=== PATIENT | female | born 1945 | race Caucasian/White ===

== ENCOUNTER → 2016-09-02 | Outpatient (CLI) | payer OTHER, MEDICARE ==
[~2016-09-02] MED LIST: ASCA500 PO; CALC500C70 PO; CHOL100010 PO; MULT-506 PO; MULTCAP36 PO; THY/30 PEG; THYR90TA PO
[2016-09-02 14:50] LABS: URINE APPEARANCE CLEAR (CLEAR); URINE BILIRUBIN NEG (NEG); URINE COLOR YELLOW; URINE NITRITE NEG (NEG); URINE PH 6.5 (4.5-7.5); URINE SPECIFIC GRAVITY 1.001 (1.000-1.030); UROBILINOGEN NEG (NEG)
[2016-09-02 14:53] LABS: MANUAL MICROSCOPIC REQUIRED? NO; REVIEW REQ? YES
[2016-09-02 15:08] LABS: URINE EPITHELIAL CELL AUTO 0-5 /lpf (0-5)
== END | disposition home or self-care (01) ==
LOC: C.LAB 13:41
PROVIDERS: ATTEND Internal Medicine
DX: R30.0 Dysuria (principal); R35.0 Frequency of micturition; R39.15 Urgency of urination

== ENCOUNTER → 2016-10-25 | Outpatient (CLI) | payer OTHER, MEDICARE ==
[~2016-10-25] MED LIST changes: +ASCO10003 PO; +CHOL2000 PO; +FERR143T5 PO; +MULTCAP33 PO; +MULTCHW PO
== END | disposition home or self-care (01) ==
LOC: C.LAB 13:25
PROVIDERS: ATTEND Internal Medicine Endocrinology, Diabetes & Metabolism
DX: E03.9 Hypothyroidism, unspecified (principal)

== ENCOUNTER → 2016-10-28 | Outpatient (CLI) | payer OTHER, MEDICARE ==
[2016-10-28 14:48] LABS: BLOOD UREA NITROGEN 18 mg/dl (7-18); BUN/CREATININE RATIO 19.4 (10-20); CARBON DIOXIDE 29 mmol/L (21-32); CHLORIDE 106 mmol/L (98-107); CREATININE 0.95 mg/dl (0.60-1.20); GLUCOSE 112 mg/dl (70-99); POTASSIUM 4.1 mmol/L (3.5-5.1); SODIUM 143 mmol/L (136-145)
[2016-10-28 15:08] LABS: CALCIUM 9.2 mg/dl (8.5-10.1)
== END | disposition home or self-care (01) ==
LOC: C.LAB 12:37
PROVIDERS: ATTEND Registered Nurse
DX: I72.9 Aneurysm of unspecified site (principal)

== ENCOUNTER → 2016-12-04 | Outpatient (CLI) | payer OTHER, MEDICARE ==
[2016-12-04 15:00] LABS: URINE APPEARANCE CLEAR (CLEAR); URINE BILIRUBIN NEG (NEG); URINE COLOR YELLOW; URINE NITRITE NEG (NEG); URINE PH 5.5 (4.5-7.5); URINE SPECIFIC GRAVITY 1.007 (1.000-1.030); UROBILINOGEN NEG (NEG)
[2016-12-04 15:02] LABS: MANUAL MICROSCOPIC REQUIRED? NO; REVIEW REQ? YES
== END | disposition home or self-care (01) ==
LOC: C.LAB 14:20
PROVIDERS: ATTEND Internal Medicine
DX: R39.15 Urgency of urination (principal); R30.0 Dysuria

== ENCOUNTER → 2017-03-22 | Outpatient (CLI) | payer OTHER, MEDICARE ==
[~2017-03-22] MED LIST changes: -ASCO10003 PO; -CHOL2000 PO; -FERR143T5 PO; -MULTCAP33 PO; -MULTCHW PO
== END | disposition home or self-care (01) ==
LOC: C.LAB 13:37
PROVIDERS: ATTEND Internal Medicine Endocrinology, Diabetes & Metabolism
DX: E03.9 Hypothyroidism, unspecified (principal)

== ENCOUNTER → 2017-05-16 | Outpatient (CLI) | payer OTHER, MEDICARE ==
[~2017-05-16] MED LIST changes: +ASCO10003 PO; +CHOL2000 PO; +FERR143T5 PO; +MULTCAP33 PO; +MULTCHW PO
--- NOTE | 2017-05-16 19:00 | DIAGNOSTIC IMAGING REPORT ---
CHEST 2 VIEWS ROUTINE CLINICAL HISTORY: SHORTNESS OF BREATH dyspnea COMPARISON STUDY: 09/18/2014 FINDINGS: The bones soft tissues and hemidiaphragms are normal. The cardiomediastinal silhouette is normal. The lungs are clear. The pulmonary vasculature is normal. IMPRESSION: Negative chest. The above report was generated using voice recognition software. It may contain grammatical, syntax or spelling errors. Electronically signed by: Bradly Ricardo M.D. 05/16/2017 6:59 PM Dictated Date/Time: 05/16/2017 6:58 PM
== END | disposition home or self-care (01) ==
LOC: C.RAD 18:13
PROVIDERS: ATTEND Internal Medicine
DX: R06.02 Shortness of breath (principal)

== ENCOUNTER 2017-05-26 23:07 | Emergency (ER) | payer OTHER, MEDICARE ==
[~2017-05-26] VITALS: Ht 157.5 cm; Wt 62.0 kg
[2017-05-26 23:07] VITALS: TEMP 36.9; Ht 157.5 cm; Wt 62.0 kg
[~2017-05-26 23:07] MED LIST changes: -ASCO10003 PO; -CHOL2000 PO; -FERR143T5 PO; -MULTCAP33 PO; -MULTCHW PO
[2017-05-26] MEDS ORDERED: LORAZEPAM 2 MG/ML 1 ML VIAL IV STA (23:23)
[2017-05-26] MEDS ORDERED: DiphenhydrAMINE HCL 50 MG/ML VIAL IV STA (23:23)
[2017-05-26] MEDS ORDERED: SODIUM CHLORIDE 0.9% 1000ML 1,000 ML IV STA (23:23)
[2017-05-26] MEDS ORDERED: LABETALOL HCL IV 5 MG/ML 20ML IV STA (23:26)
--- NOTE | 2017-05-26 23:31 | EMERGENCY ROOM VISIT NOTE ---
History Report prepared by Grace: Abraham Roldan Under the Supervision of: Dr. Erasmo Braga M.D. First contact with patient: 23:11 Chief Complaint: NAUSEA Stated Complaint: NAUSEA History of Present Illness The patient is a 71 year old female who presents to the Emergency Room with complaints of intermittent vomiting beginning yesterday. Patient with angiogram to evaluate previous aneurysm that was coiled a few years ago follow SAH. She notes that following procedure she noted nausea. Which eventually turned in to vomiting. Attempted to leave hospital but continued vomiting and admitted to hospital for overnight then discharged with scopolamine patch. After getting home worsening vomiting. Minimal headache with this. Nothing makes better nor worse. No trauma/injuries. With continued symptoms she came in to ED. No cp, sob, weakness, abdominal pain, urinary/bowel changes, swelling nor other symptoms. Source of History: patient Onset: yesterday Position: abdomen Quality: other (vomiting) Timing: intermittent Associated Symptoms: + headache (mild), + nausea, + vomiting, No chest pain , No abdominal pain Review of Systems See HPI for pertinent positives & negatives. A total of 10 systems reviewed and were otherwise negative. Past Medical & Surgical Medical Problems: (1) Aneurysm (2) Mitral valve prolapse Surgical Problems: (1) H/O: hysterectomy (2) History of thyroidectomy Family History No pertinent family history No pertinent family history stated. Social History Smoking Status: Former Smoker Marital Status: Housing Status: lives with significant other Occupation Status: retired Current/Historical Medications Scheduled Ascorbic Acid (Vitamin C), 1,000 MG PO DAILY Calcium/Vitamin D (Os-Satish 500 Plus D), 1 TAB PO BID Cholecalciferol (Vitamin D3), 1 CAP PO DAILY Ferrous Sulfate (Iron Slow Release), 1 TAB PO DAILY Multiple Vitamins W/ Minerals (Preservision Areds), 2 CAP PO BID Multiple Vitamins W/ Minerals (Centrum Silver), 1 TAB PO DAILY Thyroid ([place] Thyroid), 60 MG PEG 6XWK Thyroid ([place] Thyroid), 90 MG PO WK Allergies Coded Allergies: Adrenalone (Verified Allergy, Severe, palptitations, 05/26/17) Codeine (Verified Allergy, Severe, vomit, 05/26/17) Erythromycin (Verified Allergy, Severe, pass out, 05/26/17) Naproxen (Verified Allergy, Severe, chest pain, 05/26/17) NSAIDs (Verified Allergy, Unknown, UNKNOWN, 05/26/17) Uncoded Allergies: ANY -MYCIN ABX (Allergy, Severe, pass out, 06/14/11) ADHESIVE TAPE (Allergy, Unknown, UNKNOWN, 09/18/14) Physical Exam Vital Signs Date Time Temp Pulse Resp B/P (MAP) Pulse Ox O2 Delivery O2 Flow Rate FiO2 05/27/17 02:19 92 16 119/72 92 Room Air 05/27/17 02:06 91 22 93 05/27/17 02:01 130/78 05/27/17 01:36 90 19 93 05/27/17 01:31 147/74 05/27/17 01:06 88 24 93 05/27/17 01:01 144/80 05/27/17 00:53 91 20 93 05/27/17 00:49 160/84 05/26/17 23:53 94 22 92 05/26/17 23:53 94 05/26/17 23:48 166/88 05/26/17 23:45 93 23 92 05/26/17 23:44 94 24 168/95 91 Room Air 05/26/17 23:07 36.9 118 18 220/103 95 Room Air Physical Exam GENERAL: Patient is uncomfortable appearing and in moderate distress. Periodically vomiting green bile. HEENT: No acute trauma, normocephalic atraumatic, dry membranes moist, no nasal congestion, no scleral icterus. NECK: No stridor, no adenopathy, no meningismus, trachea is midline. LUNGS: No dyspnea. Clear to auscultation and equal bilaterally. No wheeze, no rhonchi. HEART: Regular rhythm and tachycardic. No murmurs, rubs, gallops appreciated. ABDOMEN: Soft, nontender, bowel sounds positive, no masses appreciated, no peritonitis. BACK: No midline tenderness, no CVA tenderness EXTREMITIES: Right groin angio site dressed without swelling/redness/bleeding. Normal motion all extremities, no cyanosis, no edema. NEUROLOGIC: Alert and oriented, no acute motor or sensory deficits, no focal weakness, cranial nerves grossly intact. SKIN: No rash, yellowing of hands and feet, no diaphoresis, poor skin turgor. Medical Decision & Procedures ER Provider Diagnostic Interpretation: Radiology results and stated below per my review and radiologist interpretation: CT HEAD: Comparison: CT dated 09/18/2014 Postsurgical change of right parasellar aneurysm coiling with associated artifact. No evidence of acute intracranial hemorrhage or other acute intracranial normality accounting for limitations of exam due to aforementioned artifact. Atrophy and chronic small vessel ischemic disease. No mass effect or midline shift. Intracranial atherosclerotic vascular disease. Radiologist: Katelynn Martinez MD Laboratory Results 05/26/17 23:30 Red Blood Count 3.99, Mean Corpuscular Volume 96.5, Mean Corpuscular Hemoglobin 33.3, Mean Corpuscular Hemoglobin Concent 34.5, Mean Platelet Volume 10.9, Neutrophils (%) (Auto) 64.1, Lymphocytes (%) (Auto) 29.0, Monocytes (%) (Auto) 5.7, Eosinophils (%) (Auto) 0.7, Basophils (%) (Auto) 0.2, Neutrophils # (Auto) 8.19, Lymphocytes # (Auto) 3.70, Monocytes # (Auto) 0.73, Eosinophils # (Auto) 0.09, Basophils # (Auto) 0.03 05/26/17 23:30 Test 05/26/17 23:30 05/27/17 01:20 White Blood Count 12.78 K/uL (4.8-10.8) Red Blood Count 3.99 M/uL (4.2-5.4) Hemoglobin 13.3 g/dL (12.0-16.0) Hematocrit 38.5 % (37-47) Mean Corpuscular Volume 96.5 fL (80-100) Mean Corpuscular Hemoglobin 33.3 pg (25-34) Mean Corpuscular Hemoglobin Concent 34.5 g/dl (32-36) Platelet Count 190 K/uL (130-400) Mean Platelet Volume 10.9 fL (7.4-10.4) Neutrophils (%) (Auto) 64.1 % Lymphocytes (%) (Auto) 29.0 % Monocytes (%) (Auto) 5.7 % Eosinophils (%) (Auto) 0.7 % Basophils (%) (Auto) 0.2 % Neutrophils # (Auto) 8.19 K/uL (1.4-6.5) Lymphocytes # (Auto) 3.70 K/uL (1.2-3.4) Monocytes # (Auto) 0.73 K/uL (0.11-0.59) Eosinophils # (Auto) 0.09 K/uL (0-0.5) Basophils # (Auto) 0.03 K/uL (0-0.2) RDW Standard Deviation 51.7 fL (36.4-46.3) RDW Coefficient of Variation 14.6 % (11.5-14.5) Immature Granulocyte % (Auto) 0.3 % Immature Granulocyte # (Auto) 0.04 K/uL (0.00-0.02) Anion Gap 5.0 mmol/L (3-11) Est Creatinine Clear Calc Drug Dose 58.6 ml/min Estimated GFR () 93.2 Estimated GFR (Non- 80.4 BUN/Creatinine Ratio 19.3 (10-20) Calcium Level 8.2 mg/dl (8.5-10.1) Phosphorus Level 1.7 mg/dl (2.5-4.9) Magnesium Level 2.3 mg/dl (1.8-2.4) Total Bilirubin 0.5 mg/dl (0.2-1) Direct Bilirubin < 0.1 mg/dl (0-0.2) Aspartate Amino Transf (AST/SGOT) 17 U/L (15-37) Alanine Aminotransferase (ALT/SGPT) 26 U/L (12-78) Alkaline Phosphatase 52 U/L (45-117) Troponin I < 0.015 ng/ml (0-0.045) Total Protein 7.5 gm/dl (6.4-8.2) Albumin 3.9 gm/dl (3.4-5.0) Lipase 194 U/L (73-393) Urine Color YELLOW Urine Appearance CLEAR (CLEAR) Urine pH 7.5 (4.5-7.5) Urine Specific Points 1.012 (1.000-1.030) Urine Protein NEG (NEG) Urine Glucose (UA) NEG (NEG) Urine Ketones NEG (NEG) Urine Occult Blood NEG (NEG) Urine Nitrite NEG (NEG) Urine Bilirubin NEG (NEG) Urine Urobilinogen NEG (NEG) Urine Leukocyte Esterase NEG (NEG) Urine WBC (Auto) 1-5 /hpf (0-5) Urine RBC (Auto) 0-4 /hpf (0-4) Urine Hyaline Casts (Auto) 1-5 /lpf (0-5) Urine Epithelial Cells (Auto) 0-5 /lpf (0-5) Urine Bacteria (Auto) NEG (NEG) Laboratory results as reviewed by me. Medications Administered Medications (Trade) Dose Ordered Sig/Les Route Start Time Stop Time Status Last Admin Dose Admin Sodium Chloride 1,000 ml @ 999 mls/hr Q1H1M STAT IV 05/26/17 23:23 05/27/17 00:23 DC 05/26/17 23:33 999 MLS/HR Diphenhydramine HCl (Benadryl Inj) 25 mg NOW STAT IV 05/26/17 23:23 05/26/17 23:24 DC 05/26/17 23:33 25 MG Lorazepam (Ativan Inj) 1 mg NOW STAT IV 05/26/17 23:23 05/26/17 23:24 DC 05/26/17 23:33 1 MG Dexamethasone Sodium Phosphate (Dexamethasone Inj Pf) 10 mg NOW ONCE IV 05/27/17 01:15 05/27/17 01:16 DC 05/27/17 01:21 10 MG Lorazepam (Ativan 1MG Home Pack) 1 homepack UD ONCE PO 05/27/17 02:15 05/27/17 02:16 DC 05/27/17 02:24 1 HOMEPACK ECG Indication: nausea Rate (beats per minute): 95 Rhythm: normal sinus Findings: no acute ischemic change, no ectopy, other (nonspecific lateral ST abnormality) ED Course 2320: The patient was evaluated in room B10. A complete history and physical exam was performed. 2323: Lorazepam 1mg IV, Benadryl Inj 25mg IV, Sodium Chloride 1000 ml @ 999 mls/ hr 1349: I reevaluated and updated the patient. She is no longer vomiting and notes that her nausea is improved. Her is at bedside. He notes that this is similar to how she presented with her previous subarachnoid hemorrhage. She is now sleepy and on steady gait. 0100: I reevaluated and updated the patient. The notes that the patient was vomiting into her hands and that is why her hands are a yellowish color. 0115: Dexamethasone Sodium Phosphate 10mg IV 0110: I reevaluated and updated the patient. She is feeling a lot better and was able to urinate. She accidentally put toilet paper in the toilet after she urinated, but notes that the urine was clear and not concentrated. 0211: I reevaluated and updated the patient. She is awake and would like to go home. She is aware that she can return at any time. 0215: Lorazepam 1homepack PO Medical Decision Differential: Gastroenteritis, Food Borne, Electrolyte Abnormality, Dehydration , Intraabdominal Infection, UTI/Pyelonephritis, Bowel Obstruction, Biliary Pathology, Allergic Reaction amongst other pathology entertained. 71 yr old female arrives with complaint of nausea, vomiting post having angiogram done. Denies significant headache nor neck pain and she has no neuro deficits nor visual changes. I do not feel this represents acute dissection from recent angiogram, especially given complete resolution of benadryl/ativan. Was given IV fluids with improvement as well. Labs look good. CT head was done given persistent symptoms which is negative. It is unclear exact etiology of this, whether GI related or contrast allergy thus I feel that doing CTA Neck would possibly just make things worse, especially given I have low suspicion of this (also she and want to try limiting costs if possible). She has no abdominal pain, no TTP and she denies abdominal issues previously thus I do not see obvious reason to do CT Abdo/Pelv at this time. Yellowed hands/feet are from bile she had been vomiting. I did opt to give dose Decadron give persistent vomiting last few days, along with fact this could be allergic reaction. I discussed monitoring further in hospital but she prefers to go home and does as well. We discussed symptoms requiring RTED. I gave her to go Ativan if nausea returning but if significant symptoms I made it clear they should return as further evaluation/imaging will clearly be necessary. Stable and breathing comfortably at discharge with no further symptoms. Medication Reconcilliation Current Medication List: was personally reviewed by me Blood Pressure Screening Patient's blood pressure: Elevated blood pressure Blood pressure disposition: Elevated BP felt to be situational she was referred to go see her doctor Impression Primary Impression: Nausea & vomiting Additional Impression: Hypertension Scribe Attestation The scribe's documentation has been prepared under my direction and personally reviewed by me in its entirety. I confirm that the note above accurately reflects all work, treatment, procedures, and medical decision making performed by me. Departure Information Dispostion Home / Self-Care Referrals Pro,Holland W., M.D. (PCP) Forms HOME CARE DOCUMENTATION FORM, IMPORTANT VISIT INFORMATION Patient Instructions ED Nausea Vomiting, My [facility] Additional Instructions Your blood pressure was elevated during this visit. This is quite common in many people who are being evaluated in the Emergency Department for many reasons. However, it is important that you have your Primary Care Provider recheck your blood pressure and discuss whether treatment will be needed. longterm elevated blood pressure can lead to strokes, heart attacks, kidney failure amongst other medical issues. If you develop severe headaches, chest pain, weakness in arms or legs, or other concerning symptoms call 911. Problem Qualifiers
[2017-05-26 23:43] LABS: BASO % 0.2 %; BASO ABS # 0.03 K/uL (0-0.2); COMPLETE YES; EOS % 0.7 %; HEMATOCRIT 38.5 % (37-47); IG% 0.3 %; MEAN CELL VOLUME 96.5 fL (80-100); MEAN CORPUSCULAR HEMOGLOBIN 33.3 pg (25-34); MEAN CORPUSCULAR HGB CONC 34.5 g/dl (32-36); MEAN PLATELET VOLUME 10.9 fL (7.4-10.4); MONO % 5.7 %; NEUT % 64.1 %; PLATELET COUNT 190 K/uL (130-400); RED BLOOD COUNT 3.99 M/uL (4.2-5.4); WHITE BLOOD COUNT 12.78 K/uL (4.8-10.8)
[2017-05-26] MEDS ORDERED: MULTCAP33 PO (23:44)
[2017-05-26] MEDS ORDERED: FERR143T5 PO (23:44)
[2017-05-26] MEDS ORDERED: MULTCHW PO (23:45)
[2017-05-26] MEDS ORDERED: CHOL2000 PO (23:45)
[2017-05-26] MEDS ORDERED: ASCO10003 PO (23:45)
[2017-05-27 00:01] LABS: ALT/SGPT 26 U/L (12-78); AST/SGOT 17 U/L (15-37); BLOOD UREA NITROGEN 14 mg/dl (7-18); BUN/CREATININE RATIO 19.3 (10-20); CALCIUM 8.2 mg/dl (8.5-10.1); CARBON DIOXIDE 27 mmol/L (21-32); CHLORIDE 110 mmol/L (98-107); CREATININE 0.74 mg/dl (0.60-1.20); GLUCOSE 138 mg/dl (70-99); MAGNESIUM 2.3 mg/dl (1.8-2.4); POTASSIUM 3.2 mmol/L (3.5-5.1); SODIUM 142 mmol/L (136-145)
[2017-05-27 00:04] LABS: ALKALINE PHOSPHATASE 52 U/L (45-117); PHOSPHORUS 1.7 mg/dl (2.5-4.9)
[2017-05-27] MEDS ORDERED: DEXAMETHASONE **PF** INJ 10 MG/ML VIAL IV ONE (01:15)
[2017-05-27 01:34] LABS: URINE APPEARANCE CLEAR (CLEAR); URINE BILIRUBIN NEG (NEG); URINE COLOR YELLOW; URINE EPITHELIAL CELL AUTO 0-5 /lpf (0-5); URINE NITRITE NEG (NEG); URINE PH 7.5 (4.5-7.5); URINE SPECIFIC GRAVITY 1.012 (1.000-1.030); UROBILINOGEN NEG (NEG); ZZUR CULT IF INDIC CLEAN CATCH NO
[2017-05-27 01:38] LABS: MANUAL MICROSCOPIC REQUIRED? NO; REVIEW REQ? NO
[2017-05-27] MEDS ORDERED: ATIVAN 1MG HOMEPACK PO ONE (02:15)
[2017-05-27 02:19] VITALS: BP 119/72; PULSE 92; O2SAT 92
--- NOTE | 2017-05-27 07:09 | DIAGNOSTIC IMAGING REPORT ---
HEAD CT NONCONTRAST CT DOSE: 537.48 mGy.cm HISTORY: persistent nausea/vomiting. h/o SAH TECHNIQUE: Multiaxial CT images of the head were performed without the use of intravenous contrast. Automated exposure control was utilized for this study. A dose lowering technique was utilized adhering to the principles of ALARA. Comparison: Head CT 09/18/2014. Findings: The paranasal sinuses and mastoid air cells are clear. The calvarium and skull base are intact. There is no mass, hematoma, midline shift, acute infarct. White matter hypodensity is nonspecific but suggestive of microvascular ischemic change. The ventricles and sulci demonstrate mild age-related involutional changes. Aneurysm coiling adjacent to the right supraclinoid ICA. Mild right parietal scalp swelling. Impression: No acute intracranial abnormality. Atrophy and microvascular ischemic changes. Right parasellar aneurysm coiling. Mild right parietal scalp swelling. Electronically signed by: Buddy Mcgarry M.D. 05/27/2017 7:08 AM Dictated Date/Time: 05/27/2017 7:05 AM
== END 2017-05-27 02:30 | disposition home or self-care (01) ==
LOC: EDBD 23:07 → C.EDB 23:10
DX: R11.2 Nausea with vomiting, unspecified (principal); R03.0 Elevated blood-pressure reading, without diagnosis of hypertension; Z87.891 Personal history of nicotine dependence

== ENCOUNTER → 2017-06-22 | Outpatient (CLI) | payer OTHER, MEDICARE ==
[~2017-06-22] MED LIST changes: -ASCA500 PO; +ASCO10003 PO; -CHOL100010 PO; +CHOL2000 PO; +FERR143T5 PO; -MULT-506 PO; +MULTCAP33 PO; -MULTCAP36 PO; +MULTCHW PO
--- NOTE | 2017-06-22 15:17 | MAMMOGRAPHY REPORT ---
BILATERAL DIGITAL SCREENING MAMMOGRAM TOMOSYNTHESIS WITH CAD: 06/22/2017 CLINICAL HISTORY: Routine screening. Patient has no complaints. TECHNIQUE: Breast tomosynthesis in addition to standard 2D mammography was performed. Current study was also evaluated with a Computer Aided Detection (CAD) system. COMPARISON: Comparison is made to exams dated: 06/07/2016 mammogram, 06/04/2015 mammogram, 4 mammogram, 05/28/2013 mammogram, 05/25/2012 mammogram, and 05/20/2011 mammogram - [facility]. BREAST COMPOSITION: There are scattered areas of fibroglandular density in both breasts. FINDINGS: There are stable asymmetries in the breast. A stable biopsy marker clip in the right upper outer quadrant, and scattered benign-appearing calcifications. No new suspicious mass, architectura l distortion or cluster of microcalcifications is seen. IMPRESSION: ACR BI-RADS CATEGORY 1: NEGATIVE There is no mammographic evidence of malignancy. A 1 year screening mammogram is recommended. The pa tient will receive written notification of the results. Approximately 10% of breast cancers are not detected with mammography. A negative mammographic report should not delay biopsy if a clinically suggestive mass is present. June Patino M.D. 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
== END | disposition home or self-care (01) ==
LOC: C.MAMM 14:03
PROVIDERS: ATTEND Obstetrics & Gynecology
DX: Z12.31 Encounter for screening mammogram for malignant neoplasm of breast (principal)

== ENCOUNTER → 2017-08-02 | Outpatient (CLI) | payer OTHER, MEDICARE | END | disposition home or self-care (01) | LOC: C.LAB 15:49 | PROVIDERS: ATTEND Internal Medicine | DX: R35.0 Frequency of micturition (principal); R39.15 Urgency of urination; A49.8 Other bacterial infections of unspecified site ==

== ENCOUNTER → 2017-12-01 | Outpatient (CLI) | payer OTHER, MEDICARE ==
[2017-12-01 15:20] LABS: ALT/SGPT 54 U/L (12-78); AST/SGOT 30 U/L (15-37); BLOOD UREA NITROGEN 15 mg/dl (7-18); CALCIUM 9.3 mg/dl (8.5-10.1); CARBON DIOXIDE 29 mmol/L (21-32); CHOLESTEROL 276 mg/dl (0-200); GLUCOSE 120 mg/dl (70-99); LDL CHOLESTEROL CALCULATED 181 mg/dl; POTASSIUM 3.9 mmol/L (3.5-5.1); SODIUM 139 mmol/L (136-145)
[2017-12-02 06:25] LABS: HEMOGLOBIN A1C 6.4 % (4.5-5.6)
== END | disposition home or self-care (01) ==
LOC: C.LAB 12:38
PROVIDERS: ATTEND Internal Medicine
DX: E78.5 Hyperlipidemia, unspecified (principal); R73.03 Prediabetes; E53.8 Deficiency of other specified B group vitamins

== ENCOUNTER → 2017-12-06 | Outpatient (CLI) | payer OTHER, MEDICARE ==
--- NOTE | 2017-12-06 15:19 | DIAGNOSTIC IMAGING REPORT ---
CHEST 2 VIEWS ROUTINE HISTORY: 72 years-old Female R09.89 J06.9 acute cough COMPARISON: Chest radiograph April 16, 2017 TECHNIQUE: PA and lateral views of the chest FINDINGS: Cardiomediastinal and hilar silhouettes are within normal limits. Atherosclerosis of the aorta. There is no pneumothorax, pleural effusion, focal airspace consolidation or overt pulmonary edema. Mild right hemidiaphragmatic elevation. Degenerative changes of the shoulders and spine. IMPRESSION: No acute process. The above report was generated using voice recognition software. It may contain grammatical, syntax or spelling errors. Electronically signed by: Josh Dobbs M.D. 12/06/2017 3:18 PM Dictated Date/Time: 12/06/2017 3:16 PM
== END | disposition home or self-care (01) ==
LOC: C.RAD1850 15:00
PROVIDERS: ATTEND Nurse Practitioner Family
DX: R09.89 Other specified symptoms and signs involving the circulatory and respiratory systems (principal); J06.9 Acute upper respiratory infection, unspecified

== ENCOUNTER → 2018-02-28 | Outpatient (CLI) | payer OTHER, MEDICARE | END | disposition home or self-care (01) | LOC: C.LAB 12:46 | PROVIDERS: ATTEND Internal Medicine Endocrinology, Diabetes & Metabolism | DX: E03.9 Hypothyroidism, unspecified (principal) ==

== ENCOUNTER 2023-08-21 10:11 | Inpatient (IN) ==
--- NOTE | 2023-08-21 10:59 | Emergency Department Note ---
Impression & Plan Hypoglycemia, UTI (urinary tract infection), Transaminitis, Alteration consciousness, Electrolyte abnormality, Acute dehydration ED Provider Note NAME: LYUBOV GEE AGE: 77 SEX: F : 1945 ARRIVES VIA: Ambulance INFORMANT: Patient, ED PROVIDER(S): Ant Smith MD CHIEF COMPLAINT: Altered mental status, hypoglycemia MEDICAL DECISION MAKING: Patient presents due to concern for altered mental status in the setting of hypoglycemia. Patient does have remote history of subarachnoid hemorrhage in 2014. IV was established and blood work was obtained. Patient was ordered IV fluids CT of the head chest x-ray bio fire and every hour blood sugars. Patient showed white count of 15 with virtually normal hemoglobin of 11.9 with normal platelet count. The patient's kidney function did show prerenal azotemia. Hyponatremia and hypokalemia noted at 133 and 3.3 respectively. Mild transaminitis with normal bilirubin with elevations in AST and ALT. The patient's urinalysis does show concern for infection. Upon review the patient had pansensitive Pseudomonas and E. coli from 2021. The patient was ordered a dose of IV cefepime which may be the cause of the patient feeling generally unwell. Bio fire is negative. CT head and chest x-ray negative. Patient did have blood sugars that were dropping again the patient was ordered D50. Given this with the associated sulfonylurea use and associated hypoglycemia in light of the patient's poor p.o. intake I did speak with the internal medicine service. Patient was admitted by Dr. Díaz. Critical Care: I have personally spent 35 minutes of critical care time in direct management of this patient. This includes bedside care, interpretation of diagnostic studies, and testing, discussion with consultants, patient, and family members, and other require inpatient management activities. This 35 minutes is in excess of all separately billable procedures. Discussion w/ other healthcare providers: Dr. Díaz inpatient medicine service Prior /Outside records reviewed: I reviewed a diabetes visit from July 07, [address] Carter. The patient was seen for uncontrolled type 2 diabetes with hyperglycemia hypothyroidism and known history of hyperlipidemia and vitamin D deficiency. Differential diagnosis: Medication side effect, poor p.o. intake, ICH, infection, dehydration, metabolic abnormality, hypo/hyperglycemia, electrolyte imbalance, anemia, UTI, pneumonia, thyroid dysfunction among others were considered. Diagnostics, as interpreted by me: ECG: Normal sinus rhythm, rate of 86, normal intervals, normal axis, T wave version lead III not in continuous leads no ST elevations and no significant change from comparison March 23, 2018 Cardiac monitoring: An order was placed for continuous cardiac monitoring. The monitor shows a rate of 85 with sinus rhythm. Patient was placed on pulse oximetry Medical decision rules: None Imaging studies: I informally interpreted the patient's chest x-ray which shows right hemidiaphragmatic elevation without obvious pneumonia or pneumothorax with formal report to follow. Informally interpreted the patient's CT head which does not show obvious ICH HPI: Patient presents due to concern for altered mental status and associated hypoglycemia. The patient's is at bedside and provides majority of the history. The patient does have short-term memory problems secondary to subarachnoid hemorrhage that was sustained in 2014. The patient has had some increasing weakness and fatigue. The patient has had some loose stools that were noted earlier in the week. The patient has not had much of an appetite. Patient did take her medications last evening but this morning tried to wake her up and did not seem very responsive to where he picked her up and laid her down but with no significant change in her mentation. He did call EMS who arrived and noted her blood sugar to be in the 30s. The patient did receive D10 and had improvement to her sugars greater than 200. The patient does not take insulin therapy. Patient does take glimepiride as well as metformin. Both were last taken last evening. Patient has not been eating or drinking as much has had poor appetite. No falls or trauma no head or neck pain. Patient denies any nausea vomiting or diarrhea recently but did have a loose stools earlier in the week. No known sick contacts or recent travel PAST MEDICAL HISTORY: See Below PAST SURGICAL HISTORY: See Below SOCIAL HISTORY: See Below HOME MEDICATIONS: See Below ALLERGIES: See Below VITALS: See Below PHYSICAL EXAMINATION: GENERAL: NAD, non-toxic. EYE EXAM: Normal conjunctiva. PERRL, no anisocoria and EOM's grossly intact w/o pain. OROPHARYNX: Moist mucus membranes, grossly normal dentition. NECK: Trachea midline, no stridor. Supple, no nuchal rigidity, no adenopathy, non-tender. No signs of meningismus. FROM of the neck with good chin to chest and neck extension. LUNGS: Clear to auscultation. Normal chest wall mechanics. HEART: NSR, no MRG. ABDOMEN: Abdomen soft, non-tender, no masses, no rebound or guarding. BACK: No CVA TTP. SKIN: No rashes and no bruising. UPPER EXTREMITIES: Upper extremities are grossly normal. LOWER EXTREMITIES: Grossly normal, no edema. NEURO EXAM: A&O x3, cranial nerves II-XII grossly intact, normal speech, moves all 4 extremities. Past Med/Surg History Medical History Nausea and vomiting after administration of anesthetic agent Lumbar degenerative disc disease Diabetes mellitus, type 2 Skin lesion of left leg De Quervain's disease (tenosynovitis) Right wrist pain Invasive lobular carcinoma of breast, stage 1 (07/25/19) Lobular carcinoma in situ (LCIS) of right breast Vitamin B12 deficiency Short-term memory loss Postmenopausal osteoporosis Posterior vitreous detachment Mitral regurgitation f/u Dr. 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 Mitral valve prolapse Surgical History History of brain surgery 2014-transferred from [facility] to [facility] with bleed. History of lumpectomy of right breast 08/22/19-Dr. Eden Arredondo & sentinel node bx. History of breast biopsy at time of pregnancies years ago. History of thyroid surgery 2000 appx-thyroidectomy Hx of tonsillectomy H/O oral surgery H/O hemorrhoidectomy H/O: hysterectomy 1982 Family History Father , age 75 Diabetes Leukemia Heart disease Myocardial infarction Sister Diabetes Mother , age 65 heart problems Heart disease Myocardial infarction Daughter No problems noted. Son No problems noted. Aunt Breast cancer Denies family history of Ovarian cancer Prostate cancer Lung cancer Colorectal cancer Stroke Social History Smoking Status: Never smoker Tobacco Type: Cigarettes Age Started Using Tobacco: 18; Age Quit Using Tobacco: 19; packs per day: 0.25; Cigarettes Per Day: 1-2; Second Hand Exposure: No; Do You Dip or Chew Tobacco: No; Hx Alcohol Use: No Hx Substance Use: No Preferred Language: Urdu Communication Ability: Effective Visual Impairment: Limited Hearing Ability: Normal Store Stock Help Required: No Beliefs That Will Affect Care: None marital status: Current Living Situation: Spouse current occupational status: retired Feels Safe at Home: Yes Childhood Exposure to Second-Hand Smoke: Yes Diet: regular Diet Comment: regular caffeine: Yes (one coffee daily) Dental Care, Regularly: Yes Physical Activity Frequency: Does not Exercise Seatbelt Use: always Sunscreen Use: Yes Assistive Devices: Glasses, Walker and Wheelchair Allergies Allergies Allergy/AdvReac Type Severity Reaction Status Date / Time adrenalone Allergy Severe palptitatio Verified 07/07/23 15:03 ns codeine Allergy Severe vomit Verified 07/07/23 15:03 erythromycin base Allergy Severe pass out Verified 07/07/23 15:03 naproxen Allergy Severe chest pain Verified 07/07/23 15:03 empagliflozin Allergy Intermediate vaginal Verified 07/07/23 15:03 [From Jardiance] infection NSAIDS (Non-Steroidal Allergy Unknown UNKNOWN Verified 07/07/23 15:03 Anti-Inflamma bacitracin Allergy rash, Verified 07/07/23 15:03 [From Neosporin itching ([id number])] epinephrine [From Adrenalin] Allergy "heart Verified 07/07/23 15:03 racing" levofloxacin [From Levaquin] Allergy "can't Verified 07/07/23 15:03 remember the reaction" neomycin Allergy rash, Verified 07/07/23 15:03 [From Neosporin itching ([id number])] polymyxin B Allergy rash, Verified 07/07/23 15:03 [From Neosporin itching ([id number])] sitagliptin [From Januvia] Allergy vaginal Verified 07/07/23 15:03 infection ANY -MYCIN ABX Allergy Severe pass out Uncoded 07/07/23 15:03 ADHESIVE TAPE Allergy Unknown UNKNOWN Uncoded 07/07/23 15:03 Home Meds Home Medications Medication Instructions Recorded Confirmed nmryvosg-ccc-ihebb acid 0.4 1 tab PO QAM ##0 05/26/17 08/21/23 mg-lycopene 300 mcg-lutein 250 mcg tablet (Centrum Silver) vitamins A,C,U-nuzr-xbwpij 2,148 1 tab PO BID ##0 05/26/17 08/21/23 mcg-113 mg-45 mg-17.4 mg tablet (PreserVision AREDS) anastrozole 1 mg tablet 1 mg PO QPM 04/22/20 08/21/23 acetaminophen 500 mg tablet 1,000 mg PO BID 10/20/22 08/21/23 (Tylenol Extra Strength) ferrous sulfate 142 mg (45 mg 142 mg PO QAM 10/20/22 08/21/23 iron) tablet,extended release (Slow Fe) atorvastatin 10 mg tablet 10 mg PO QPM 12/09/22 08/21/23 calcium carbonate 600 mg-vitamin 1 tab PO QPM 12/09/22 08/21/23 D3 20 mcg (800 unit) chewable tablet (Caltrate 600 plus D) thyroid (pork) 15 mg tablet 15 mg PO QAM 12/09/22 08/21/23 ([facility] Thyroid) calcium carbonate 400 mg calcium 400 mg PO DAILY PRN Other 12/21/22 08/21/23 (1,000 mg) chewable tablet (Tums Ultra) docusate sodium 100 mg capsule 100 mg PO PM PRN Constipation 12/21/22 08/21/23 (Colace) Dietary Supplement 1 cap PO AMPM 08/21/23 08/21/23 tramadol 50 mg tablet 50 mg PO AMPM PRN pain 08/21/23 08/21/23 Previous Rx's Medication Instructions Recorded blood sugar diagnostic (Contour #100 ea 07/27/22 Next Test Strips) lancets (Microlet Lancet) #100 ea 07/27/22 thyroid (pork) 60 mg tablet 60 mg PO QAM #90 tabs 02/14/23 ([facility] Thyroid) glimepiride 2 mg tablet 2 mg PO BID #180 tabs 03/15/23 metformin 500 mg tablet,extended 1,000 mg (2 x 500 mg) PO BID #360 07/20/23 release 24 hr tabs Results & Data (ED) Vital Signs Vital Signs - 24 hr 08/21/23 10:22 08/21/23 10:28 08/21/23 10:30 Temperature 37.4 C Temperature Source Oral Pulse Rate 86 86 Pulse Rate from SpO2 Sensor 86 Respiratory Rate 18 25 H Respiratory Effort / Characteristics Non-Labored Respiratory Depth Normal Blood Pressure 124/88 146/85 H Blood Pressure Mean 100 114 Blood Pressure Position Lying Pulse Oximetry 94 94 Oxygen Delivery Method Room Air Sepsis Recent Fever Within 48 Hours No Sepsis New/Unexplained Change in Mental Status No Sepsis Action Taken by Nursing No Action Required 08/21/23 10:30 08/21/23 10:32 08/21/23 11:00 Temperature Temperature Source Pulse Rate 85 86 Pulse Rate from SpO2 Sensor 86 Respiratory Rate 22 Respiratory Effort / Characteristics Respiratory Depth Blood Pressure 140/83 Blood Pressure Mean 106 Blood Pressure Position Pulse Oximetry 94 Oxygen Delivery Method Sepsis Recent Fever Within 48 Hours Sepsis New/Unexplained Change in Mental Status Sepsis Action Taken by Nursing 08/21/23 11:00 08/21/23 11:30 08/21/23 11:30 Temperature Temperature Source Pulse Rate 84 85 Pulse Rate from SpO2 Sensor 85 87 Respiratory Rate 23 24 Respiratory Effort / Characteristics Respiratory Depth Blood Pressure 136/92 Blood Pressure Mean 103 Blood Pressure Position Pulse Oximetry 91 94 Oxygen Delivery Method Sepsis Recent Fever Within 48 Hours Sepsis New/Unexplained Change in Mental Status Sepsis Action Taken by Nursing 08/21/23 12:00 08/21/23 12:00 08/21/23 12:30 Temperature Temperature Source Pulse Rate 82 Pulse Rate from SpO2 Sensor 82 Respiratory Rate 20 Respiratory Effort / Characteristics Respiratory Depth Blood Pressure 134/79 143/78 H Blood Pressure Mean 99 126 Blood Pressure Position Pulse Oximetry 92 Oxygen Delivery Method Sepsis Recent Fever Within 48 Hours Sepsis New/Unexplained Change in Mental Status Sepsis Action Taken by Nursing 08/21/23 12:30 Temperature Temperature Source Pulse Rate 76 Pulse Rate from SpO2 Sensor 76 Respiratory Rate 22 Respiratory Effort / Characteristics Respiratory Depth Blood Pressure Blood Pressure Mean Blood Pressure Position Pulse Oximetry 93 Oxygen Delivery Method Sepsis Recent Fever Within 48 Hours Sepsis New/Unexplained Change in Mental Status Sepsis Action Taken by [facility] Medications Current Medication List: was personally reviewed by me Laboratory Data Attestation: I reviewed the patient's lab results. 08/21/23 10:52 08/21/23 10:52 Lab Results 08/21/23 08/21/23 08/21/23 Range/Units 10:18 10:52 11:13 WBC 15.88 H (4.8-10.8) K/ul RBC 3.91 L (4.20-5.40) M/uL Hgb 11.9 L (12.0-16.0) g/dl Hct 35.0 L (37.0-47.0) % MCV 89.5 (80.0-100.0) fL MCH 30.4 (25.0-34.0) pg MCHC 34.0 (32.0-36.0) g/dL RDW Std Deviation 47.8 H (36.4-46.3) fL RDW Coeff of Sonia 14.6 H (11.5-14.5) % Plt Count 365 (130-400) K/uL MPV 9.8 (9.4-12.4) fL Immature Gran % (Auto) 1.6 % Neut % (Auto) 84.0 % Lymph % (Auto) 8.7 % Fajardo % (Auto) 5.2 % Eos % (Auto) 0.4 % Baso % (Auto) 0.1 % Neut # (Auto) 13.34 H (1.40-6.50) K/uL Lymph # (Auto) 1.38 (1.20-3.40) K/uL Fajardo # (Auto) 0.82 H (0.11-0.59) K/uL Eos # (Auto) 0.06 (0.00-0.50) K/uL Baso # (Auto) 0.02 (0.00-0.20) K/uL Immature Gran # (Auto) 0.26 H (0.01-0.20) K/uL Sodium 133 L (136-145) mmol/L Potassium 3.3 L (3.5-5.1) mmol/L Chloride 96 L (98-107) mmol/L Carbon Dioxide 25 (21-32) mmol/L Anion Gap 12 H (3-11) BUN 29 H (6-23) mg/dl Creatinine 0.89 (0.6-1.2) mg/dl Est Cr Clr Drug Dosing 42.4 ml/min Est GFR ( Amer) 71.4 ml/min Est GFR (Non-Af Amer) 61.6 ml/min BUN/Creatinine Ratio 32.6 H (10-20) Glucose 156 H (70-99(Fasting)) mg/dl POC Glucose 215 H 130 H (70-99) mg/dl Calcium 9.0 (8.6-10.3) mg/dl Magnesium 2.0 (1.7-2.4) mg/dl Total Bilirubin 0.7 (0.2-1.0) mg/dl AST 203 H (13-39) U/L ALT 275 H (7-52) U/L Alkaline Phosphatase 97 (34-104) U/L Total Creatine Kinase 229 H (26-192) U/L Troponin I High Sens 12.9 (0-14) pg/ml Total Protein 7.5 (6.0-8.3) gm/dl Albumin 3.6 (3.4-5.0) gm/dl Globulin 3.9 (2.5-4.0) gm/dl Albumin/Globulin Ratio 0.9 (0.9-2) Urine Color Urine Appearance (Clear) Urine pH (4.5-7.5) Ur Specific Letcher (1.000-1.030) Urine Protein (Negative) Urine Glucose (UA) (Negative) Urine Ketones (Negative) Urine Blood (Negative) Urine Nitrite (Negative) Urine Bilirubin (Negative) Urine Urobilinogen (Negative) Ur Leukocyte Esterase (Negative) Urine RBC (0-4) /hpf Urine WBC (0-5) /hpf Ur Epithelial Cells (0-5) /lpf Urine Bacteria (Negative) Adenovirus (PCR) (NotDetected) B. pertussis DNA (PCR) (NotDetected) B.parapertussis DNA PCR (NotDetected) C. pneumoniae DNA (PCR) (NotDetected) Coronavirus OC43 (PCR) (NotDetected) Coronavirus HKU1 (PCR) (NotDetected) Coronavirus 229E (PCR) (NotDetected) SARS-CoV-2 (PCR) (NotDetected) Coronavirus NL63 (PCR) (NotDetected) Human Metapneumovir PCR (NotDetected) Influenza Type A (PCR) (NotDetected) Influenza Type B (PCR) (NotDetected) M. pneumoniae (PCR) (NotDetected) Parainfluenza 1 (PCR) (NotDetected) Parainfluenza 2 (PCR) (NotDetected) Parainfluenza 3 (PCR) (NotDetected) Parainfluenza 4 (PCR) (NotDetected) RSV (PCR) (NotDetected) Entero/Rhino (PCR) (NotDetected) 08/21/23 08/21/23 08/21/23 Range/Units 11:20 11:22 12:12 WBC (4.8-10.8) K/ul RBC (4.20-5.40) M/uL Hgb (12.0-16.0) g/dl Hct (37.0-47.0) % MCV (80.0-100.0) fL MCH (25.0-34.0) pg MCHC (32.0-36.0) g/dL RDW Std Deviation (36.4-46.3) fL RDW Coeff of Sonia (11.5-14.5) % Plt Count (130-400) K/uL MPV (9.4-12.4) fL Immature Gran % (Auto) % Neut % (Auto) % Lymph % (Auto) % Fajardo % (Auto) % Eos % (Auto) % Baso % (Auto) % Neut # (Auto) (1.40-6.50) K/uL Lymph # (Auto) (1.20-3.40) K/uL Fajardo # (Auto) (0.11-0.59) K/uL Eos # (Auto) (0.00-0.50) K/uL Baso # (Auto) (0.00-0.20) K/uL Immature Gran # (Auto) (0.01-0.20) K/uL Sodium (136-145) mmol/L Potassium (3.5-5.1) mmol/L Chloride (98-107) mmol/L Carbon Dioxide (21-32) mmol/L Anion Gap (3-11) BUN (6-23) mg/dl Creatinine (0.6-1.2) mg/dl Est Cr Clr Drug Dosing ml/min Est GFR ( Amer) ml/min Est GFR (Non-Af Amer) ml/min BUN/Creatinine Ratio (10-20) Glucose (70-99(Fasting)) mg/dl POC Glucose 86 (70-99) mg/dl Calcium (8.6-10.3) mg/dl Magnesium (1.7-2.4) mg/dl Total Bilirubin (0.2-1.0) mg/dl AST (13-39) U/L ALT (7-52) U/L Alkaline Phosphatase (34-104) U/L Total Creatine Kinase (26-192) U/L Troponin I High Sens (0-14) pg/ml Total Protein (6.0-8.3) gm/dl Albumin (3.4-5.0) gm/dl Globulin (2.5-4.0) gm/dl Albumin/Globulin Ratio (0.9-2) Urine Color Yellow Urine Appearance Slightly Cloudy (Clear) Urine pH 5.5 (4.5-7.5) Ur Specific Letcher 1.020 (1.000-1.030) Urine Protein 2+ H (Negative) Urine Glucose (UA) Negative (Negative) Urine Ketones Negative (Negative) Urine Blood 2+ H (Negative) Urine Nitrite Positive A (Negative) Urine Bilirubin Negative (Negative) Urine Urobilinogen Negative (Negative) Ur Leukocyte Esterase 1+ H (Negative) Urine RBC 5-10 H (0-4) /hpf Urine WBC >30 H (0-5) /hpf Ur Epithelial Cells 5-10 H (0-5) /lpf Urine Bacteria 3+ H (Negative) Adenovirus (PCR) Not Detected (NotDetected) B. pertussis DNA (PCR) Not Detected (NotDetected) B.parapertussis DNA PCR Not Detected (NotDetected) C. pneumoniae DNA (PCR) Not Detected (NotDetected) Coronavirus OC43 (PCR) Not Detected (NotDetected) Coronavirus HKU1 (PCR) Not Detected (NotDetected) Coronavirus 229E (PCR) Not Detected (NotDetected) SARS-CoV-2 (PCR) Not Detected (NotDetected) Coronavirus NL63 (PCR) Not Detected (NotDetected) Human Metapneumovir PCR Not Detected (NotDetected) Influenza Type A (PCR) Not Detected (NotDetected) Influenza Type B (PCR) Not Detected (NotDetected) M. pneumoniae (PCR) Not Detected (NotDetected) Parainfluenza 1 (PCR) Not Detected (NotDetected) Parainfluenza 2 (PCR) Not Detected (NotDetected) Parainfluenza 3 (PCR) Not Detected (NotDetected) Parainfluenza 4 (PCR) Not Detected (NotDetected) RSV (PCR) Not Detected (NotDetected) Entero/Rhino (PCR) Not Detected (NotDetected) 08/21/23 Range/Units 12:33 WBC (4.8-10.8) K/ul RBC (4.20-5.40) M/uL Hgb (12.0-16.0) g/dl Hct (37.0-47.0) % MCV (80.0-100.0) fL MCH (25.0-34.0) pg MCHC (32.0-36.0) g/dL RDW Std Deviation (36.4-46.3) fL RDW Coeff of Sonia (11.5-14.5) % Plt Count (130-400) K/uL MPV (9.4-12.4) fL Immature Gran % (Auto) % Neut % (Auto) % Lymph % (Auto) % Fajardo % (Auto) % Eos % (Auto) % Baso % (Auto) % Neut # (Auto) (1.40-6.50) K/uL Lymph # (Auto) (1.20-3.40) K/uL Fajardo # (Auto) (0.11-0.59) K/uL Eos # (Auto) (0.00-0.50) K/uL Baso # (Auto) (0.00-0.20) K/uL Immature Gran # (Auto) (0.01-0.20) K/uL Sodium (136-145) mmol/L Potassium (3.5-5.1) mmol/L Chloride (98-107) mmol/L Carbon Dioxide (21-32) mmol/L Anion Gap (3-11) BUN (6-23) mg/dl Creatinine (0.6-1.2) mg/dl Est Cr Clr Drug Dosing ml/min Est GFR ( Amer) ml/min Est GFR (Non-Af Amer) ml/min BUN/Creatinine Ratio (10-20) Glucose (70-99(Fasting)) mg/dl POC Glucose 71 (70-99) mg/dl Calcium (8.6-10.3) mg/dl Magnesium (1.7-2.4) mg/dl Total Bilirubin (0.2-1.0) mg/dl AST (13-39) U/L ALT (7-52) U/L Alkaline Phosphatase (34-104) U/L Total Creatine Kinase (26-192) U/L Troponin I High Sens (0-14) pg/ml Total Protein (6.0-8.3) gm/dl Albumin (3.4-5.0) gm/dl Globulin (2.5-4.0) gm/dl Albumin/Globulin Ratio (0.9-2) Urine Color Urine Appearance (Clear) Urine pH (4.5-7.5) Ur Specific Letcher (1.000-1.030) Urine Protein (Negative) Urine Glucose (UA) (Negative) Urine Ketones (Negative) Urine Blood (Negative) Urine Nitrite (Negative) Urine Bilirubin (Negative) Urine Urobilinogen (Negative) Ur Leukocyte Esterase (Negative) Urine RBC (0-4) /hpf Urine WBC (0-5) /hpf Ur Epithelial Cells (0-5) /lpf Urine Bacteria (Negative) Adenovirus (PCR) (NotDetected) B. pertussis DNA (PCR) (NotDetected) B.parapertussis DNA PCR (NotDetected) C. pneumoniae DNA (PCR) (NotDetected) Coronavirus OC43 (PCR) (NotDetected) Coronavirus HKU1 (PCR) (NotDetected) Coronavirus 229E (PCR) (NotDetected) SARS-CoV-2 (PCR) (NotDetected) Coronavirus NL63 (PCR) (NotDetected) Human Metapneumovir PCR (NotDetected) Influenza Type A (PCR) (NotDetected) Influenza Type B (PCR) (NotDetected) M. pneumoniae (PCR) (NotDetected) Parainfluenza 1 (PCR) (NotDetected) Parainfluenza 2 (PCR) (NotDetected) Parainfluenza 3 (PCR) (NotDetected) Parainfluenza 4 (PCR) (NotDetected) RSV (PCR) (NotDetected) Entero/Rhino (PCR) (NotDetected) Administered Medications Dextrose/Lactated Ringer's (D5w And Lactated Ringers) 1,000 mls @ 125 mls/hr IV .Q8H TRINH Stop: 09/20/23 12:59 Last Admin: 08/21/23 13:04 Dose: 125 mls/hr Documented By: CHETNA Discontinued Medications Dextrose (Dextrose 50% 50 Ml Syringe) Confirm Administered Dose 50 ml IV .STK- MED ONE Stop: 08/21/23 12:37 Last Admin: 08/21/23 12:40 Dose: Not Given Documented By: AMBER Dextrose (Dextrose 50% 50 Ml Syringe) 50 ml IV NOW ONE Stop: 08/21/23 12:38 Last Admin: 08/21/23 12:40 Dose: 50 ml Documented By: AMBER Sodium Chloride (Nss) 500 mls @ 999 mls/hr IV .Q31M ONE Stop: 08/21/23 11:41 Last Infusion: 08/21/23 12:48 Dose: Infused Documented By: Admin: 08/21/23 12:03 Dose: 999 mls/hr Documented By: AMBER Cefepime HCl (Maxipime) 20 mls @ 5 mls/min IV NOW STA Stop: 08/21/23 12:31 Last Admin: 08/21/23 12:38 Dose: 5 mls/min Documented By: AMBER Potassium Chloride (K Zan / Wtr) 10 meq in 100 mls @ 100 mls/hr IV Q1H TRINH Stop: 08/21/23 15:44 Last Infusion: 08/21/23 16:27 Dose: Infused Documented By: Admin: 08/21/23 15:02 Dose: 100 mls/hr Documented By: Infusion: 08/21/23 14:57 Dose: Infused Documented By: Admin: 08/21/23 13:57 Dose: 100 mls/hr Documented By: CHETNA Imaging Data Radiologist's Impression: Head CT 08/21/23 11:11 CT head/brain wo con CLINICAL HISTORY: 77 years-old Female with AMS, h/o SAH. Acutely altered mental status TECHNIQUE: Multiple axial CT images of the head were obtained without contrast. A dose lowering technique was utilized adhering to the principles of ALARA. CT DOSE: 547.75 mGy.cm COMPARISON: 12/18/2019. FINDINGS: No acute intracranial hemorrhage, midline shift, intracranial mass, hydrocephalus, territorial ischemia or abnormal extra-axial collection. Involutional changes with chronic microvascular ischemic disease. Embolization coils again noted within the right aspect of the yocha dehe of [place] causing streak artifact which limits the study. Cerebral vascular calcifications. Chronic left caudate lacunar infarct. The calvarium is intact. Small right mastoid effusion. The left mastoid air cells and paranasal sinuses appear clear. Unremarkable soft tissues and orbits. IMPRESSION: No acute intracranial abnormality. ACT 112: Negative or not required by law. The above report was generated using voice recognition software. It may contain grammatical, syntax or spelling errors. Electronically signed by: Ferny Dobbs M.D. 08/21/2023 12:07 PM Chest X-Ray 08/21/23 11:16 XR chest 1V portable HISTORY: 77 years-old Female weakness acute weakness COMPARISON: 03/19/2022 TECHNIQUE: AP view of the chest FINDINGS: Cardiomediastinal and hilar silhouettes are within normal limits. No pneumothorax, pleural effusion or airspace consolidation. Chronic right hemidiaphragmatic elevation. Bones appear grossly intact. IMPRESSION: No acute process. ACT 112: Negative or not required by law. The above report was generated using voice recognition software. It may contain grammatical, syntax or spelling errors. Electronically signed by: Ferny Dobbs M.D. 08/21/2023 11:37 AM Discharge Plan Visit Data Chief Complaint: Hypoglycemia Stated Complaint: HYPOGLYCEMIA ED Provider: Ant Smith Discharge Problem: Hypoglycemia, UTI (urinary tract infection), Transaminitis, Alteration consciousness, Electrolyte abnormality, Acute dehydration Patient Disposition: Admitted As Inpatient Discharge Instructions Interventions: ED Discharge Assessment Last Done: 08/21/23 15:25 Discharge Problem: UTI (urinary tract infection) Qualifiers: Urinary tract infection type: site unspecified Hematuria presence: with hematuria Qualified Code(s): N39.0 - Urinary tract infection, site not specified ; R31.9 - Hematuria, unspecified
[2023-08-21 11:20] LABS: Basophils # (auto) 0.02 K/uL (0.00-0.20); Basophils % (auto) 0.1 %; Eosinophils # (auto) 0.06 K/uL (0.00-0.50); Eosinophils % (auto) 0.4 %; Hemoglobin 11.9 g/dl (12.0-16.0); Immature Granulocytes # (auto) 0.26 K/uL (0.01-0.20); Immature Granulocytes % (auto) 1.6 %; Lymphocytes # (auto) 1.38 K/uL (1.20-3.40); Lymphocytes % (auto) 8.7 %; Mean Corpuscular Hemoglobin 30.4 pg (25.0-34.0); Mean Corpuscular Volume 89.5 fL (80.0-100.0); Mean Platelet Volume 9.8 fL (9.4-12.4); Monocytes # (auto) 0.82 K/uL (0.11-0.59); Monocytes % (auto) 5.2 %; Neutrophils # (auto) 13.34 K/uL (1.40-6.50); Platelet Count 365 K/uL (130-400); RDW Coefficient of Variation 14.6 % (11.5-14.5); RDW Standard Deviation 47.8 fL (36.4-46.3); Red Blood Count 3.91 M/uL (4.20-5.40); White Blood Count 15.88 K/ul (4.8-10.8)
[2023-08-21 11:33] LABS: Albumin Globulin Ratio 0.9 (0.9-2); Albumin Level 3.6 gm/dl (3.4-5.0); BUN Creatinine Ratio 32.6 (10-20); Bilirubin,Total 0.7 mg/dl (0.2-1.0); Creatinine Clr Calc Pharmacy 42.4 ml/min; Est GFR (African American) 71.4 ml/min; Est GFR (Non-African American) 61.6 ml/min; Globulin 3.9 gm/dl (2.5-4.0); Potassium 3.3 mmol/L (3.5-5.1); Total Protein 7.5 gm/dl (6.0-8.3)
--- NOTE | 2023-08-21 11:38 | XRay Report ---
XR chest 1V portable HISTORY: 77 years-old Female weakness acute weakness COMPARISON: 03/19/2022 TECHNIQUE: AP view of the chest FINDINGS: Cardiomediastinal and hilar silhouettes are within normal limits. No pneumothorax, pleural effusion o r airspace consolidation. Chronic right hemidiaphragmatic elevation. Bones appear grossly intact. IMPRESSION: No acute process. ACT 112: Negative or not required by law. The above report was generated using voice recognition software. It may contain grammatical, syntax o r spelling errors. Electronically signed by: Ferny Dobbs M.D. 08/21/2023 11:37 AM
[2023-08-21 11:54] LABS: Troponin I High Sensitivity 12.9 pg/ml (0-14)
[2023-08-21 12:01] LABS: Appearance Urine Slightly Cloudy (Clear); Bilirubin Urine Negative (Negative); Blood Urine 2+ (Negative); Color Urine Yellow; Glucose Urine UA Negative (Negative); Ketones Urine Negative (Negative); Leukocyte Esterase Urine 1+ (Negative); Nitrite Urine Positive (Negative); Protein Urine 2+ (Negative); Urobilinogen Urine Negative (Negative); pH Urine 5.5 (4.5-7.5)
[2023-08-21] MEDS: SODIUM CHLORIDE 0.9% 500 ML IV ONE (12:03)
--- NOTE | 2023-08-21 12:10 | CT Scan Report ---
CT head/brain wo con CLINICAL HISTORY: 77 years-old Female with AMS, h/o SAH. Acutely altered mental status TECHNIQUE: Multiple axial CT images of the head were obtained without contrast. A dose lowering tech nique was utilized adhering to the principles of ALARA. CT DOSE: 547.75 mGy.cm COMPARISON: 12/18/2019. FINDINGS: No acute intracranial hemorrhage, midline shift, intracranial mass, hydrocephalus, territorial ischem ia or abnormal extra-axial collection. Involutional changes with chronic microvascular ischemic disea se. Embolization coils again noted within the right aspect of the [place] causing streak art ifact which limits the study. Cerebral vascular calcifications. Chronic left caudate lacunar infarct. The calvarium is intact. Small right mastoid effusion. The left mastoid air cells and paranasal sinu ses appear clear. Unremarkable soft tissues and orbits. IMPRESSION: No acute intracranial abnormality. ACT 112: Negative or not required by law. The above report was generated using voice recognition software. It may contain grammatical, syntax o r spelling errors. Electronically signed by: Ferny Dobbs M.D. 08/21/2023 12:07 PM
[2023-08-21 12:30] LABS: Bacteria Urine 3+ (Negative); WBC Urine >30 /hpf (0-5)
[2023-08-21] MEDS: DEXTROSE 50% 50 ML SYRINGE IV ONE ×2 (12:38→12:40)
[2023-08-21] MEDS: CEFEPIME 20 ML IV STA (12:38)
[2023-08-21 12:45] LABS: Adenovirus PCR Not Detected (NotDetected); Bordetella parapertussis PCR Not Detected (NotDetected); Bordetella pertussis PCR Not Detected (NotDetected); Chlamydia pneumoniae PCR Not Detected (NotDetected); Coronavirus 229E PCR Not Detected (NotDetected); Coronavirus CoV-2 (COVID19)PCR Not Detected (NotDetected); Coronavirus HKU1 PCR Not Detected (NotDetected); Coronavirus NL63 PCR Not Detected (NotDetected); Coronavirus OC43PCR Not Detected (NotDetected); Human Metapneumovirus PCR Not Detected (NotDetected); Influenza A PCR Not Detected (NotDetected); Influenza B PCR Not Detected (NotDetected); Mycoplasma pneumoniae PCR Not Detected (NotDetected); Parainfluenza Virus 1 PCR Not Detected (NotDetected); Parainfluenza Virus 2 PCR Not Detected (NotDetected); Parainfluenza Virus 3 PCR Not Detected (NotDetected); Parainfluenza Virus 4 PCR Not Detected (NotDetected); Respiratory Syncytial VirusPCR Not Detected (NotDetected); Rhinovirus/Enterovirus PCR Not Detected (NotDetected)
[2023-08-21] MEDS ORDERED: POLYETHYLENE (MIRALAX) 17 GM PACK PO PRN (12:56)
[2023-08-21] MEDS: D5W AND LACTATED RINGERS 1,000 ML IV SCH (13:04)
[2023-08-21] MEDS ORDERED: GLUCAGON FOR INJ 1 MG VIAL SQ PRN (13:05)
[2023-08-21] MEDS ORDERED: GLUCOSE 40% GEL 15 GM TUBE PO PRN (13:05)
[2023-08-21] MEDS ORDERED: CARBOHYDRATES FOR HYPOGLYCEMIA PO PRN (13:05)
[2023-08-21] MEDS ORDERED: DEXTROSE 50% 50 ML SYRINGE IV PRN (13:05)
[2023-08-21] MEDS ORDERED: GLUCOSE 10 TAB/TUBE PO PRN (13:05)
--- NOTE | 2023-08-21 13:20 | History & Physical Report ---
Date of Service August 21, 2023 Assessment & Plan (1) Uncontrolled type 2 diabetes mellitus with hyperglycemia: Plan: Type 2 diabetes mellitus on metformin and glimepiride, no history of insulin Last A1c 6.4%. Given hypoglycemic episodes and age and comorbidities r ecommend liberalized A1c goal of 8% Patient is hypoglycemic in the setting of sulfonylurea use and extremely poor appetite around a UTI Multiple drops of blood sugar less than 80 which corrects with D50. Patient started on D5 LR while in the ER, continue every hour blood sugar checks until BSG stabilizes. May use additional D50 pushes PRN Addition of sliding scale insulin is deferred until BSG stabilizes. Metformin held Recommend permanent discontinuation of glimepiride due to age, poor appetite, and hypoglycemia risk (2) UTI (urinary tract infection): Plan: With several days of increased confusion, poor appetite, urinary incontinence and frequency UA is infected appearing Patient has a history of pseudomonal UTI in 2021 sensitive to cefepime in Klebsiella UTI with intermediate resistance to only nitrofurantoin 1, and past E. coli and group B strep UTIs Given past pseudomonal UTI will treat with cefepime and follow culture for speciation. She has a mild leukocytosis but is nontoxic on admission Patient has had minimal/to no p.o. intake for several days is slightly volume contracted and is with bubble study delusions/hyponatremia hypokalemia hypochloremia. D5 LR continue. IV potassium x 3 L given. 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: Plan: Patient with diminished cognition in the setting of hypoglycemia; when euglycemic patient mentation is improved but still somewhat confused and is easily distractible Suspect multifactorial acute mental status on chronic cognitive deficit; acute deficits due to metabolic encephalopathy with UTI and hypoglycemia treated as no (4) Invasive lobular carcinoma of breast, stage 1: Plan: No acute change, continued on anastrozole (5) Hypothyroidism, postablative: Plan: Continue home [place] Thyroid (6) Transaminitis: Plan: Patient has an acute transaminitis in the setting of UTI and hypoglycemia. Lower suspicion for shock liver as while clinically volume depleted she does not have an BRUNA, has not been hypotensive, and high sensitive troponin is elevated Patient was laying in bed immobile for over 12 hours while hypoglycemic, CK ordered to evaluate for rhabdomyolysis If transaminitis is persistent/does not improved and CK is normal recommend follow-up liver CT with contrast to eval for mets. She does have a history of invasive left breast carcinoma s/p lumpectomy and ER positive right breast lobular carcinoma. No known liver metastasis. Plan DVT PPx: SCDs, pharmacyppx deferred due to hx of ICH CODE: DNR/DNI. Patient does want treatment for reversible conditions however per discussion with the father would not want prolonged or invasive treatments if she were clinically declining and they were unlikely to have any meaningful impact on her length or quality of life Diet: DM2, soft bite sized Dispo: Med/Tele. History of Present Illness Primary Care Provider: Holland Landin MD Geronimo is a 77-year-old female with a history of no short-term memory and cognitive decline following a intracranial hemorrhage many years ago, type 2 diabetes mellitus on metformin and glipizide, hypothyroidism, hyperlipidemia, and history of breast cancer continued on anastrozole 1 mg nightly who presents after being found in her bed unresponsive who did not appear to have changed posture at all since she was assisted to bed by her the previous night. She was hypoglycemic on EMS arrival was given D50 with transient improvement but recurrent hypoglycemic episodes on every hour rechecks while in the ER. Patient is not able to give any reliable medical history, and is oriented to name only. Collateral is provided with her who is her medical decision- maker who is at the bedside. He reports that over the last week she has been much more weak and confused than normal. She has also had multiple episodes of urinary incontinence and frequency which are unusual for her. She is typically able to ambulate with assistance with a walker from her however has been very weak and having more difficulty ambulating, and seems more confused when instructed to try to do things such as sit and stand. Over the last 2 days her appetite has been extremely poor and she has had almost nothing to eat; has only been able to take her pills which she last took evening prior to admission with a small amount of water and a small amount of pudding. At bedside she denies chest pain, chest pressure, fever, chills, sweats, abdominal pain however is a very limited historian. is at the bedside and provides a living will and advanced directives. This includes DNR/DNI, if she were to have a clinical decline and additional measures such as antibiotics were unlikely to save or prolong her life they would not want prolonged measures at that time. Would want reasonable medical interventions to treat acutely treatable conditions including her hyperglycemia and apparent UTI. No tobacco or alcohol use. Allergies Allergy/AdvReac Type Severity Reaction Status Date / Time adrenalone Allergy Severe palptitatio Verified 07/07/23 15:03 ns codeine Allergy Severe vomit Verified 07/07/23 15:03 erythromycin base Allergy Severe pass out Verified 07/07/23 15:03 naproxen Allergy Severe chest pain Verified 07/07/23 15:03 empagliflozin Allergy Intermediate vaginal Verified 07/07/23 15:03 [From Jardiance] infection NSAIDS (Non-Steroidal Allergy Unknown UNKNOWN Verified 07/07/23 15:03 Anti-Inflamma bacitracin Allergy rash, Verified 07/07/23 15:03 [From Neosporin itching ([id number])] epinephrine [From Adrenalin] Allergy "heart Verified 07/07/23 15:03 racing" levofloxacin [From Levaquin] Allergy "can't Verified 07/07/23 15:03 remember the reaction" neomycin Allergy rash, Verified 07/07/23 15:03 [From Neosporin itching ([id number])] polymyxin B Allergy rash, Verified 07/07/23 15:03 [From Neosporin itching ([id number])] sitagliptin [From Januvia] Allergy vaginal Verified 07/07/23 15:03 infection ANY -MYCIN ABX Allergy Severe pass out Uncoded 07/07/23 15:03 ADHESIVE TAPE Allergy Unknown UNKNOWN Uncoded 07/07/23 15:03 Home Medications Medication Instructions Recorded Confirmed Type cfcpyowr-uii-jjfep acid 0.4 1 tab PO QAM ##0 05/26/17 08/21/23 History mg-lycopene 300 mcg-lutein 250 mcg tablet (Centrum Silver) vitamins A,C,Y-ujoc-mpmuoi 2,148 1 tab PO BID ##0 05/26/17 08/21/23 History mcg-113 mg-45 mg-17.4 mg tablet (PreserVision AREDS) anastrozole 1 mg tablet 1 mg PO QPM 04/22/20 08/21/23 History blood sugar diagnostic (Contour #100 ea 07/27/22 07/07/23 Rx Next Test Strips) lancets (Microlet Lancet) #100 ea 07/27/22 07/07/23 Rx acetaminophen 500 mg tablet 1,000 mg PO BID 10/20/22 08/21/23 History (Tylenol Extra Strength) ferrous sulfate 142 mg (45 mg 142 mg PO QAM 10/20/22 08/21/23 History iron) tablet,extended release (Slow Fe) atorvastatin 10 mg tablet 10 mg PO QPM 12/09/22 08/21/23 History calcium carbonate 600 mg-vitamin 1 tab PO QPM 12/09/22 08/21/23 History D3 20 mcg (800 unit) chewable tablet (Caltrate 600 plus D) thyroid (pork) 15 mg tablet 15 mg PO QAM 12/09/22 08/21/23 History ([place] Thyroid) calcium carbonate 400 mg calcium 400 mg PO DAILY PRN Other 12/21/22 08/21/23 History (1,000 mg) chewable tablet (Tums Ultra) docusate sodium 100 mg capsule 100 mg PO PM PRN Constipation 12/21/22 08/21/23 History (Colace) thyroid (pork) 60 mg tablet 60 mg PO QAM #90 tabs 02/14/23 08/21/23 Rx ([place] Thyroid) glimepiride 2 mg tablet 2 mg PO BID #180 tabs 03/15/23 08/21/23 Rx metformin 500 mg tablet,extended 1,000 mg (2 x 500 mg) PO BID #360 07/20/23 08/21/23 Rx release 24 hr tabs Dietary Supplement 1 cap PO AMPM 08/21/23 08/21/23 History tramadol 50 mg tablet 50 mg PO AMPM PRN pain 08/21/23 08/21/23 History Past Med/Surg History Medical History Nausea and vomiting after administration of anesthetic agent Lumbar degenerative disc disease Diabetes mellitus, type 2 Skin lesion of left leg De Quervain's disease (tenosynovitis) Right wrist pain Invasive lobular carcinoma of breast, stage 1 (07/25/19) Lobular carcinoma in situ (LCIS) of right breast Vitamin B12 deficiency Short-term memory loss Postmenopausal osteoporosis Posterior vitreous detachment Mitral regurgitation Hypothyroidism, postablative Hyperlipidemia History of subarachnoid hemorrhage Hearing difficulty of both ears 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 Son No problems noted. Aunt Breast cancer Denies family history of Ovarian cancer Prostate cancer Lung cancer Colorectal cancer Stroke Social History Smoking Status: Never smoker Tobacco Type: Cigarettes Age Started Using Tobacco: 18; Age Quit Using Tobacco: 19; packs per day: 0.25; Cigarettes Per Day: 1-2; Second Hand Exposure: No; Do You Dip or Chew Tobacco: No; Hx Alcohol Use: Yes Alcohol type: wine Alcohol Intake Frequency Comment: socially Hx Substance Use: No Preferred Language: Mongolian Communication Ability: Effective Visual Impairment: Limited Hearing Ability: Normal [place] Required: No Beliefs That Will Affect Care: None marital status: Current Living Situation: Spouse current occupational status: retired Feels Safe at Home: Yes Childhood Exposure to Second-Hand Smoke: Yes Diet: regular Diet Comment: regular caffeine: Yes (one coffee daily) Dental Care, Regularly: Yes Physical Activity Frequency: Does not Exercise Seatbelt Use: always Sunscreen Use: Yes Assistive Devices: Cane, Glasses and Other Physical Exam Physical Exam: General: Oriented to name only. No acute distress HEENT: Atraumatic, normocephalic. Pupils equal and reactive to light Pulm: CTAB A&P. -wheezes, -rales, -rhonchi. Symmetrical chest rise. No increased work of breathing. No respiratory distress. Cardiac: RRR, -mrg. Radial pulses intact and symmetrical. Abdominal: nondistended, soft. BS present. Results & Data Results & Data Vital Signs (Past 12 Hours) Vital Signs Temp Pulse Resp BP Pulse Ox O2 Del Method 08/21/23 12:00 82 20 92 08/21/23 12:00 134/79 08/21/23 11:30 85 24 94 08/21/23 11:30 136/92 08/21/23 11:00 84 23 91 08/21/23 11:00 140/83 08/21/23 10:32 86 08/21/23 10:30 85 22 94 08/21/23 10:30 146/85 H 08/21/23 10:28 86 25 H 94 08/21/23 10:22 37.4 C 86 18 124/88 94 Room Air Code Status & VTE Plan VTE Prophylaxis Plan VTE Prophylaxis will be ordered: Yes PG Care Time/CCT Total # of Minutes Spent Total Time Spent with Patient: Total time spent is greater than 50% in coordination of care (as documented) at patient's floor/unit and/or counseling patient: Coding Level of Care Code 67288 INT INP/OBS CARE MIN Diagnoses Uncontrolled type 2 diabetes mellitus with hyperglycemia E11.65 UTI (urinary tract infection) N39.0 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
[2023-08-21] MEDS: POTASSIUM CHLORIDE / WTR 10 MEQ/100 ML PLCT IV SCH (13:57)
[2023-08-21] MEDS: CALCIUM 600MG + VIT D 400 IU TAB PO SCH (20:22)
[2023-08-21] MEDS: ANASTROZOLE 1 MG TAB PO SCH (20:22)
[2023-08-21] MEDS: CEFEPIME 1,000 MG in SYRINGE 0 ML IV SCH (23:46)
[2023-08-22 07:22] LABS: Basophils # (auto) 0.04 K/uL (0.00-0.20); Basophils % (auto) 0.3 %; Eosinophils # (auto) 0.12 K/uL (0.00-0.50); Eosinophils % (auto) 0.8 %; Hematocrit (blood only) 34.2 % (37.0-47.0); Hemoglobin 11.6 g/dl (12.0-16.0); Immature Granulocytes # (auto) 0.24 K/uL (0.01-0.20); Immature Granulocytes % (auto) 1.5 %; Lymphocytes # (auto) 1.69 K/uL (1.20-3.40); Lymphocytes % (auto) 10.8 %; Mean Corpuscular Hemoglobin 30.9 pg (25.0-34.0); Mean Corpuscular Hgb Conc 33.9 g/dL (32.0-36.0); Mean Platelet Volume 10.1 fL (9.4-12.4); Monocytes # (auto) 1.27 K/uL (0.11-0.59); Monocytes % (auto) 8.1 %; Neutrophils # (auto) 12.29 K/uL (1.40-6.50); Neutrophils % (auto) 78.5 %; Platelet Count 376 K/uL (130-400); RDW Coefficient of Variation 14.4 % (11.5-14.5); RDW Standard Deviation 47.9 fL (36.4-46.3); Red Blood Count 3.76 M/uL (4.20-5.40); White Blood Count 15.65 K/ul (4.8-10.8)
[2023-08-22 07:41] LABS: Calcium 8.8 mg/dl (8.6-10.3); Creatinine Clr Calc Pharmacy 54.6 ml/min; Est GFR (African American) 89.3 ml/min; Est GFR (Non-African American) 77.1 ml/min; Potassium 3.4 mmol/L (3.5-5.1)
--- NOTE | 2023-08-22 07:47 | Electrocardiogram Report ---
Test Reason : Blood Pressure : / mmHG Vent. Rate : 086 BPM Atrial Rate : 086 BPM P-R Int : 178 ms QRS Dur : 080 ms QT Int : 378 ms P-R-T Axes : -11 008 024 degrees QTc Int : 452 ms Normal sinus rhythm Normal ECG When compared with ECG of 23-MAR-2018 12:17, Nonspecific ST abnormality no longer present Confirmed by Laureano Glasgow ([id number]) on 08/22/2023 7:47:24 AM Referred By: REFERRED SELF Confirmed By:Laureano Glasgow
[2023-08-22] MEDS ORDERED: GLUCAGON FOR INJ 1 MG VIAL SQ PRN (07:49)
[2023-08-22] MEDS: SODIUM CHLORIDE 0.9% 1,000 ML IV SCH (07:52)
[2023-08-22] MEDS: POTASSIUM CHLORIDE 20 MEQ in SODIUM CHLORIDE 0.9% 1,000 ML IV SCH (08:24)
[2023-08-22] MEDS: INSULIN ASPART PER UNIT CHARGE SC SCH (09:29)
[2023-08-22] MEDS: NSS + 20MEQ KCL 20 MEQ/1,000 ML BAG IV SCH (09:29)
[2023-08-22] MEDS: ACETAMINOPHEN 325 MG TAB PO PRN (09:34)
[2023-08-22] MEDS: traMADol HCL 50 MG TABLET PO PRN (10:25)
--- NOTE | 2023-08-22 13:40 | Hospitalist Progress Note ---
Date of Service August 22, 2023 Assessment & Plan (1) Diabetes mellitus with hypoglycemia: Plan: Type 2 diabetes mellitus on metformin and glimepiride, no history of insulin Last A1c 6.4%. Given hypoglycemic episodes and age and comorbidities recommend liberalized A1c goal of 8% Patient is hypoglycemic in the setting of sulfonylurea use and extremely poor appetite around a UTI Multiple drops of blood sugar less than 80 which corrects with D50. Patient was initially treated with a D5 drip which was discontinued after her sugars stabilized Currently on normal saline Sliding scale insulin initiated. Metformin held Recommend permanent discontinuation of glimepiride due to age, poor appetite, and hypoglycemia risk (2) UTI (urinary tract infection): Plan: With several days of increased confusion, poor appetite, urinary incontinence and frequency UA is infected appearing, urine culture growing gram-negative rods. Awaiting further identification and sensitivity Patient has a history of pseudomonal UTI in 2021 sensitive to cefepime in Klebsiella UTI with intermediate resistance to only nitrofurantoin 1, and past E. coli and group B strep UTIs Given past pseudomonal UTI will treat with cefepime and follow culture for speciation. 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 Lower suspicion for shock liver as while clinically volume depleted she does not have an BRUNA, has not been hypotensive, and high sensitive troponin is elevated No rhabdomyolysis his CK is unremarkable Repeat LFT in a.m. If transaminitis is persistent/does not improved and CK is normal recommend follow-up liver CT with contrast to eval for mets. She does have a history of invasive left breast carcinoma s/p lumpectomy and ER positive right breast lobular carcinoma. No known liver metastasis. Plan DVT PPx: SCDs, pharmacyppx deferred due to hx of ICH CODE: DNR/DNI. Patient does want treatment for reversible conditions however per discussion with the would not want prolonged or invasive treatments if she were clinically declining and they were unlikely to have any meaningful impact on her length or quality of life Diet: DM2, soft bite sized Admission and Anticipated Discharge Date Admission Date: August 21, 2023 Subjective at the bedside. Says that she is much better compared to yesterday as she was completely unresponsive yesterday. But she is not back to her usual baseline yet. Review of Systems Review of Systems: All systems reviewed & are unremarkable except as noted in Subjective Physical Exam Physical Exam: General: Awake, conversant. AO x 2. Pleasantly confused Heart: S1, S2/regular rate and rhythm, no murmur rubs or gallops Lungs: Clear to auscultation bilaterally. Normal effort Abdomen: Soft/nontender/nondistended. No hepatosplenomegaly Extremities: No clubbing/cyanosis. No edema Behavior: Appropriate, cooperative Results & Data Results & Data Vital Signs (Past 12 Hours) Vital Signs Temp Pulse Pulse Resp BP Pulse Ox O2 Del Method 08/22/23 10:54 36.7 C 82 18 126/75 95 Room Air 08/22/23 07:27 36.7 C 68 18 165/63 H 91 Room Air 08/22/23 07:09 77 08/22/23 04:20 37.1 C 75 20 166/79 H 92 Room Air Laboratory Results Abnormal lab results 08/21/23 08/21/23 08/21/23 Range/Units 10:52 14:11 17:27 WBC (4.8-10.8) K/ul RBC (4.20-5.40) M/uL Hgb (12.0-16.0) g/dl Hct (37.0-47.0) % RDW Std Deviation (36.4-46.3) fL Neut # (Auto) (1.40-6.50) K/uL [place] # (Auto) (0.11-0.59) K/uL Immature Gran # (Auto) (0.01-0.20) K/uL Potassium (3.5-5.1) mmol/L BUN/Creatinine Ratio (10-20) Glucose (70-99(Fasting)) mg/dl POC Glucose 174 H 121 H (70-99) mg/dl Total Creatine Kinase 229 H (26-192) U/L 08/21/23 08/21/2308/21/24 Range/Units 19:48 21:04 23:07 WBC (4.8-10.8) K/ul RBC (4.20-5.40) M/uL Hgb (12.0-16.0) g/dl Hct (37.0-47.0) % RDW Std Deviation (36.4-46.3) fL Neut # (Auto) (1.40-6.50) K/uL [place] # (Auto) (0.11-0.59) K/uL Immature Gran # (Auto) (0.01-0.20) K/uL Potassium (3.5-5.1) mmol/L BUN/Creatinine Ratio (10-20) Glucose (70-99(Fasting)) mg/dl POC Glucose 150 H 160 H 179 H (70-99) mg/dl Total Creatine Kinase (26-192) U/L 08/22/23 08/22/23 08/22/23 Range/Units 02:14 06:00 06:21 WBC 15.65 H (4.8-10.8) K/ul RBC 3.76 L (4.20-5.40) M/uL Hgb 11.6 L (12.0-16.0) g/dl Hct 34.2 L (37.0-47.0) % RDW Std Deviation 47.9 H (36.4-46.3) fL Neut # (Auto) 12.29 H (1.40-6.50) K/uL [place] # (Auto) 1.27 H (0.11-0.59) K/uL Immature Gran # (Auto) 0.24 H (0.01-0.20) K/uL Potassium 3.4 L (3.5-5.1) mmol/L BUN/Creatinine Ratio 23.0 H (10-20) Glucose 302 H* (70-99(Fasting)) mg/dl POC Glucose 226 H 262 H (70-99) mg/dl Total Creatine Kinase (26-192) U/L 08/22/23 08/22/23 08/22/23 Range/Units 08:14 08:15 08:16 WBC (4.8-10.8) K/ul RBC (4.20-5.40) M/uL Hgb (12.0-16.0) g/dl Hct (37.0-47.0) % RDW Std Deviation (36.4-46.3) fL Neut # (Auto) (1.40-6.50) K/uL [place] # (Auto) (0.11-0.59) K/uL Immature Gran # (Auto) (0.01-0.20) K/uL Potassium (3.5-5.1) mmol/L BUN/Creatinine Ratio (10-20) Glucose (70-99(Fasting)) mg/dl POC Glucose 311 H* 301 H* 317 H* (70-99) mg/dl Total Creatine Kinase (26-192) U/L 08/22/23 Range/Units 12:06 WBC (4.8-10.8) K/ul RBC (4.20-5.40) M/uL Hgb (12.0-16.0) g/dl Hct (37.0-47.0) % RDW Std Deviation (36.4-46.3) fL Neut # (Auto) (1.40-6.50) K/uL [place] # (Auto) (0.11-0.59) K/uL Immature Gran # (Auto) (0.01-0.20) K/uL Potassium (3.5-5.1) mmol/L BUN/Creatinine Ratio (10-20) Glucose (70-99(Fasting)) mg/dl POC Glucose 189 H (70-99) mg/dl Total Creatine Kinase (26-192) U/L Diagnostic Findings Abnormal lab results 08/21/23 08/21/23 08/21/23 Range/Units 10:52 14:11 17:27 WBC (4.8-10.8) K/ul RBC (4.20-5.40) M/uL Hgb (12.0-16.0) g/dl Hct (37.0-47.0) % RDW Std Deviation (36.4-46.3) fL Neut # (Auto) (1.40-6.50) K/uL [place] # (Auto) (0.11-0.59) K/uL Immature Gran # (Auto) (0.01-0.20) K/uL Potassium (3.5-5.1) mmol/L BUN/Creatinine Ratio (10-20) Glucose (70-99(Fasting)) mg/dl POC Glucose 174 H 121 H (70-99) mg/dl Total Creatine Kinase 229 H (26-192) U/L 08/21/23 08/21/23 08/21/23 Range/Units 19:48 21:04 23:07 WBC (4.8-10.8) K/ul RBC (4.20-5.40) M/uL Hgb (12.0-16.0) g/dl Hct (37.0-47.0) % RDW Std Deviation (36.4-46.3) fL Neut # (Auto) (1.40-6.50) K/uL [place] # (Auto) (0.11-0.59) K/uL Immature Gran # (Auto) (0.01-0.20) K/uL Potassium (3.5-5.1) mmol/L BUN/Creatinine Ratio (10-20) Glucose (70-99(Fasting)) mg/dl POC Glucose 150 H 160 H 179 H (70-99) mg/dl Total Creatine Kinase (26-192) U/L 08/22/23 08/22/23 08/22/23 Range/Units 02:14 06:00 06:21 WBC 15.65 H (4.8-10.8) K/ul RBC 3.76 L (4.20-5.40) M/uL Hgb 11.6 L (12.0-16.0) g/dl Hct 34.2 L (37.0-47.0) % RDW Std Deviation 47.9 H (36.4-46.3) fL Neut # (Auto) 12.29 H (1.40-6.50) K/uL [place] # (Auto) 1.27 H (0.11-0.59) K/uL Immature Gran # (Auto) 0.24 H (0.01-0.20) K/uL Potassium 3.4 L (3.5-5.1) mmol/L BUN/Creatinine Ratio 23.0 H (10-20) Glucose 302 H* (70-99(Fasting)) mg/dl POC Glucose 226 H 262 H (70-99) mg/dl Total Creatine Kinase (26-192) U/L 08/22/23 08/22/23 08/22/23 Range/Units 08:14 08:15 08:16 WBC (4.8-10.8) K/ul RBC (4.20-5.40) M/uL Hgb (12.0-16.0) g/dl Hct (37.0-47.0) % RDW Std Deviation (36.4-46.3) fL Neut # (Auto) (1.40-6.50) K/uL [place] # (Auto) (0.11-0.59) K/uL Immature Gran # (Auto) (0.01-0.20) K/uL Potassium (3.5-5.1) mmol/L BUN/Creatinine Ratio (10-20) Glucose (70-99(Fasting)) mg/dl POC Glucose 311 H* 301 H* 317 H* (70-99) mg/dl Total Creatine Kinase (26-192) U/L 08/22/23 Range/Units 12:06 WBC (4.8-10.8) K/ul RBC (4.20-5.40) M/uL Hgb (12.0-16.0) g/dl Hct (37.0-47.0) % RDW Std Deviation (36.4-46.3) fL Neut # (Auto) (1.40-6.50) K/uL [place] # (Auto) (0.11-0.59) K/uL Immature Gran # (Auto) (0.01-0.20) K/uL Potassium (3.5-5.1) mmol/L BUN/Creatinine Ratio (10-20) Glucose (70-99(Fasting)) mg/dl POC Glucose 189 H (70-99) mg/dl Total Creatine Kinase (26-192) U/L PG Care Time/CCT Total # of Minutes Spent Total Time Spent with Patient: Total time spent is greater than 50% in coordination of care (as documented) at patient's floor/unit and/or counseling patient: Coding Level of Care Code 28441 SUB INP/OBS CARE 235MIN Diagnoses Diabetes mellitus with hypoglycemia E11.649 UTI (urinary tract infection) N39.0; R31.9 Hematuria presence: with hematuria Urinary tract infection type: site unspecified 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
[2023-08-23 07:07] LABS: Basophils # (auto) 0.07 K/uL (0.00-0.20); Basophils % (auto) 0.5 %; Eosinophils # (auto) 0.27 K/uL (0.00-0.50); Eosinophils % (auto) 1.8 %; Hemoglobin 10.6 g/dl (12.0-16.0); Immature Granulocytes # (auto) 0.26 K/uL (0.01-0.20); Immature Granulocytes % (auto) 1.7 %; Lymphocytes # (auto) 2.14 K/uL (1.20-3.40); Lymphocytes % (auto) 13.9 %; Mean Corpuscular Hemoglobin 30.2 pg (25.0-34.0); Mean Corpuscular Hgb Conc 33.1 g/dL (32.0-36.0); Mean Corpuscular Volume 91.2 fL (80.0-100.0); Mean Platelet Volume 9.6 fL (9.4-12.4); Monocytes # (auto) 1.12 K/uL (0.11-0.59); Monocytes % (auto) 7.3 %; Neutrophils # (auto) 11.55 K/uL (1.40-6.50); Neutrophils % (auto) 74.8 %; Platelet Count 365 K/uL (130-400); RDW Coefficient of Variation 14.4 % (11.5-14.5); RDW Standard Deviation 47.8 fL (36.4-46.3); Red Blood Count 3.51 M/uL (4.20-5.40); White Blood Count 15.41 K/ul (4.8-10.8)
[2023-08-23 07:24] LABS: Albumin Level 2.9 gm/dl (3.4-5.0); BUN Creatinine Ratio 18.6 (10-20); Bilirubin Direct 0.2 mg/dl (0-0.2); Bilirubin,Total 0.7 mg/dl (0.2-1.0); Calcium 8.3 mg/dl (8.6-10.3); Creatinine Clr Calc Pharmacy 57.7 ml/min; Est GFR (African American) 95.5 ml/min; Est GFR (Non-African American) 82.4 ml/min; Potassium 3.7 mmol/L (3.5-5.1); Total Protein 6.2 gm/dl (6.0-8.3)
[2023-08-23] MEDS ORDERED: ARMOUR THYROID 30 MG TAB PO SCH (11:15)
[2023-08-23] MEDS: ARMOUR THYROID 30 MG TAB PO SCH (11:48)
--- NOTE | 2023-08-23 13:52 | Hospitalist Progress Note ---
Date of Service August 23, 2023 Assessment & Plan (1) Diabetes mellitus with hypoglycemia: Plan: Type 2 diabetes mellitus on metformin and glimepiride, no history of insulin Last A1c 6.4%. Given hypoglycemic episodes and age and comorbidities recommend liberalized A1c goal of 8% Patient is hypoglycemic in the setting of sulfonylurea use and extremely poor appetite around a UTI Had multiple drops of blood sugar less than 80 which corrected with D50. Patient was initially treated with a D5 drip which was discontinued after her sugars stabilized Currently on normal saline Sliding scale insulin initiated. Metformin held Recommend permanent discontinuation of glimepiride due to age, poor appetite, and hypoglycemia risk Patient is not eating well per and nurse. Will continue IV fluids at a lower rate (2) UTI (urinary tract infection): Plan: With several days of increased confusion, poor appetite, urinary incontinence and frequency UA is infected appearing, urine culture growing pansensitive E. coli Switch from cefepime to ceftriaxone. May discharge on p.o. 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 Lower suspicion for shock liver as while clinically volume depleted she does not have an BRUNA, has not been hypotensive, and high sensitive troponin is elevated No rhabdomyolysis his CK is unremarkable Repeat LFTs this a.m. much improved Plan DVT PPx: SCDs, pharmacyppx deferred due to hx of ICH CODE: DNR/DNI. Patient does want treatment for reversible conditions however per discussion with the would not want prolonged or invasive treatments if she were clinically declining and they were unlikely to have any meaningful impact on her length or quality of life Diet: DM2, soft bite sized Admission and Anticipated Discharge Date Admission Date: August 21, 2023 Subjective Per , patient is still not back to her baseline mental status much better than when she first presented to the hospital. She is still not eating well. She is still weak. Review of Systems 2 Review of Systems: All systems reviewed & are unremarkable except as noted in Subjective Physical Exam Physical Exam: General: Awake, conversant. AO x 2. Pleasantly confused Heart: S1, S2/regular rate and rhythm, no murmur rubs or gallops Lungs: Clear to auscultation bilaterally. Normal effort Abdomen: Soft/nontender/nondistended. No hepatosplenomegaly Extremities: No clubbing/cyanosis. No edema Behavior: Appropriate, cooperative Results & Data Results & Data Vital Signs (Past 12 Hours) Vital Signs Temp Pulse Pulse Resp BP Pulse Ox O2 Del Method 08/23/23 11:16 36.7 C 64 18 149/73 H 94 Room Air 08/23/23 08:14 64 08/23/23 07:43 36.4 C L 62 16 173/73 H 93 Room Air 08/23/23 02:55 37.1 C 74 16 165/78 H 95 Room Air Laboratory Results Abnormal lab results 08/22/23 08/22/23 08/23/23 Range/Units 17:16 20:26 06:32 WBC 15.41 H (4.8-10.8) K/ul RBC 3.51 L (4.20-5.40) M/uL Hgb 10.6 L (12.0-16.0) g/dl Hct 32.0 L (37.0-47.0) % RDW Std Deviation 47.8 H (36.4-46.3) fL Neut # (Auto) 11.55 H (1.40-6.50) K/uL [place] # (Auto) 1.12 H (0.11-0.59) K/uL Immature Gran # (Auto) 0.26 H (0.01-0.20) K/uL Glucose 147 H (70-99(Fasting)) mg/dl POC Glucose 158 H 168 H (70-99) mg/dl Calcium 8.3 L (8.6-10.3) mg/dl ALT 109 H (7-52) U/L Albumin 2.9 L (3.4-5.0) gm/dl 08/23/23 08/23/23 Range/Units 08:02 12:01 WBC (4.8-10.8) K/ul RBC (4.20-5.40) M/uL Hgb (12.0-16.0) g/dl Hct (37.0-47.0) % RDW Std Deviation (36.4-46.3) fL Neut # (Auto) (1.40-6.50) K/uL [place] # (Auto) (0.11-0.59) K/uL Immature Gran # (Auto) (0.01-0.20) K/uL Glucose (70-99(Fasting)) mg/dl POC Glucose 149 H 170 H (70-99) mg/dl Calcium (8.6-10.3) mg/dl ALT (7-52) U/L Albumin (3.4-5.0) gm/dl PG Care Time/CCT Total # of Minutes Spent Total Time Spent with Patient: Total time spent is greater than 50% in coordination of care (as documented) at patient's floor/unit and/or counseling patient: Coding Level of Care Code 18732 SUB INP/OBS CARE 2/35MIN Diagnoses Diabetes mellitus with hypoglycemia E11.649 UTI (urinary tract infection) N39.0; R31.9 Hematuria presence: with hematuria Urinary tract infection type: site unspecified Acute metabolic encephalopathy G93.41 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
[2023-08-23] MEDS: cefTRIAXone SODIUM 1,000 MG in DEXTROSE 5 % MINI-B 50 ML IV SCH (17:57)
[2023-08-24 07:41] LABS: Basophils # (auto) 0.08 K/uL (0.00-0.20); Basophils % (auto) 0.5 %; Eosinophils # (auto) 0.24 K/uL (0.00-0.50); Eosinophils % (auto) 1.5 %; Hematocrit (blood only) 32.9 % (37.0-47.0); Hemoglobin 10.9 g/dl (12.0-16.0); Immature Granulocytes % (auto) 2.5 %; Lymphocytes # (auto) 2.18 K/uL (1.20-3.40); Lymphocytes % (auto) 13.4 %; Mean Corpuscular Hemoglobin 29.9 pg (25.0-34.0); Mean Corpuscular Hgb Conc 33.1 g/dL (32.0-36.0); Mean Corpuscular Volume 90.4 fL (80.0-100.0); Mean Platelet Volume 9.7 fL (9.4-12.4); Monocytes # (auto) 0.93 K/uL (0.11-0.59); Monocytes % (auto) 5.7 %; Neutrophils # (auto) 12.38 K/uL (1.40-6.50); Neutrophils % (auto) 76.4 %; Platelet Count 375 K/uL (130-400); RDW Coefficient of Variation 14.4 % (11.5-14.5); RDW Standard Deviation 47.7 fL (36.4-46.3); Red Blood Count 3.64 M/uL (4.20-5.40); White Blood Count 16.21 K/ul (4.8-10.8)
[2023-08-24 08:06] LABS: BUN Creatinine Ratio 18.2 (10-20); Bilirubin,Total 0.6 mg/dl (0.2-1.0); Calcium 8.2 mg/dl (8.6-10.3); Creatinine Clr Calc Pharmacy 61.2 ml/min; Est GFR (African American) 97.4 ml/min; Potassium 3.7 mmol/L (3.5-5.1); Total Protein 6.5 gm/dl (6.0-8.3)
--- NOTE | 2023-08-24 12:12 | Hospitalist Progress Note ---
Date of Service August 24, 2023 Assessment & Plan (1) Diabetes mellitus with hypoglycemia: Plan: Type 2 diabetes mellitus on metformin and glimepiride, no history of insulin Last A1c 6.4%. Given hypoglycemic episodes and age and comorbidities recommend liberalized A1c goal of 8% Patient is hypoglycemic in the setting of sulfonylurea use and extremely poor appetite around a UTI Had multiple drops of blood sugar less than 80 which corrected with D50. Patient was initially treated with a D5 drip which was discontinued after her sugars stabilized Currently on normal saline due to poor p.o. intake. Sliding scale insulin initiated. Metformin held Recommend permanent discontinuation of glimepiride due to age, poor appetite, and hypoglycemia risk Patient is not eating well per and nurse. Will continue IV fluids at a lower rate (2) UTI (urinary tract infection): Plan: With several days of increased confusion, poor appetite, urinary incontinence and frequency UA is infected appearing, urine culture growing pansensitive E. coli Switched from cefepime to ceftriaxone. May discharge on p.o. Keflex Still has leukocytosis. White count elevated at 16 today. No other source found. No fever. Not short of breath. Blood cultures were not drawn on admission. Has been on antibiotics since admission. Not sure if getting blood cultures would help at this time. If white count is not coming down by tomorrow, may consider further workup. 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 No rhabdomyolysis his CK is unremarkable Repeat LFTs 2/6 much improved Plan DVT PPx: SCDs, pharmacyppx deferred due to hx of ICH CODE: DNR/DNI. Patient does want treatment for reversible conditions however per discussion with the would not want prolonged or invasive treatments if she were clinically declining and they were unlikely to have any meaningful impact on her length or quality of life Diet: DM2, soft bite sized Disposition: May discharge to [facility] when medically stable. Leukocytosis not improving. Not stable for discharge today. Admission and Anticipated Discharge Date Admission Date: August 21, 2023 Subjective Patient remains very tired and weak. Denies chest pain, shortness of breath. Her only complaint is her right ankle pain which has been a chronic problem. Review of Systems Review of Systems: Unobtainable due to cognitive status Physical Exam Physical Exam: General: Awake, conversant. AO x 2. Pleasantly confused. Frail looking. Heart: S1, S2/regular rate and rhythm, no murmur rubs or gallops Lungs: Clear to auscultation bilaterally. Normal effort Abdomen: Soft/nontender/nondistended. No hepatosplenomegaly Extremities: No clubbing/cyanosis. No edema Behavior: Appropriate, cooperative Results & Data Results & Data Vital Signs (Past 12 Hours) Vital Signs Temp Pulse Pulse Resp BP Pulse Ox O2 Del Method 08/24/23 11:22 36.8 C 78 18 127/67 95 Room Air 08/24/23 07:39 37.0 C 68 18 188/79 H 92 Room Air 08/24/23 07:15 69 08/24/23 04:22 36.7 C 89 18 141/71 H 95 Room Air Laboratory Results Abnormal lab results 08/23/23 08/23/23 08/24/23 Range/Units 17:22 20:13 06:51 WBC 16.21 H (4.8-10.8) K/ul RBC 3.64 L (4.20-5.40) M/uL Hgb 10.9 L (12.0-16.0) g/dl Hct 32.9 L (37.0-47.0) % RDW Std Deviation 47.7 H (36.4-46.3) fL Neut # (Auto) 12.38 H (1.40-6.50) K/uL [place] # (Auto) 0.93 H (0.11-0.59) K/uL Immature Gran # (Auto) 0.40 H (0.01-0.20) K/uL Glucose 145 H (70-99(Fasting)) mg/dl POC Glucose 144 H 168 H (70-99) mg/dl Calcium 8.2 L (8.6-10.3) mg/dl ALT 90 H (7-52) U/L Albumin 3.0 L (3.4-5.0) gm/dl 08/24/23 Range/Units 08:14 WBC (4.8-10.8) K/ul RBC (4.20-5.40) M/uL Hgb (12.0-16.0) g/dl Hct (37.0-47.0) % RDW Std Deviation (36.4-46.3) fL Neut # (Auto) (1.40-6.50) K/uL [place] # (Auto) (0.11-0.59) K/uL Immature Gran # (Auto) (0.01-0.20) K/uL Glucose (70-99(Fasting)) mg/dl POC Glucose 133 H (70-99) mg/dl Calcium (8.6-10.3) mg/dl ALT (7-52) U/L Albumin (3.4-5.0) gm/dl PG Care Time/CCT Total # of Minutes Spent Total Time Spent with Patient: Total time spent is greater than 50% in coordination of care (as documented) at patient's floor/unit and/or counseling patient: Coding Level of Care Code 29844 SUB INP/OBS CARE 235MIN Diagnoses Diabetes mellitus with hypoglycemia E11.649 UTI (urinary tract infection) N39.0; R31.9 Hematuria presence: with hematuria Urinary tract infection type: site unspecified Acute metabolic encephalopathy G93.41 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
[2023-08-25] MEDS: bisacodyL 10 MG SUPP PR STA (12:58)
--- NOTE | 2023-08-25 13:26 | Hospitalist Progress Note ---
Date of Service August 25, 2023 Assessment & Plan (1) Diabetes mellitus with hypoglycemia: Plan: Type 2 diabetes mellitus on metformin and glimepiride, no history of insulin Last A1c 6.4%. Given hypoglycemic episodes and age and comorbidities recommend liberalized A1c goal of 8% Patient is hypoglycemic in the setting of sulfonylurea use and extremely poor appetite around a UTI Had multiple drops of blood sugar less than 80 which corrected with D50. Patient was initially treated with a D5 drip which was discontinued after her sugars stabilized Currently on normal saline due to poor p.o. intake. Sliding scale insulin initiated. Metformin held Recommend permanent discontinuation of glimepiride due to age, poor appetite, and hypoglycemia risk Patient is not eating well per and nurse. Will continue IV fluids at a lower rate 2 patient is eating better, her blood sugars are better, will stop IV fluids and monitor her off fluid (2) UTI (urinary tract infection): Plan: With several days of increased confusion, poor appetite, urinary incontinence and frequency UA is infected appearing, urine culture growing pansensitive E. coli Switched from cefepime to ceftriaxone. May discharge on p.o. Keflex Still has leukocytosis. White count elevated at 16 today. No other source found. No fever. Not short of breath. Blood cultures were not drawn on admission. Has been on antibiotics since admission. Not sure if getting blood cultures would help at this time. If white count is not coming down by tomorrow, may consider further workup. Nontoxic-appearing 2 patient remains nontoxic-appearing, CBC was not done today , repeat CBC tomorrow, will transition her to p.o. 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 No rhabdomyolysis his CK is unremarkable Repeat LFTs 08/23 much improved Plan DVT PPx: SCDs, pharmacyppx deferred due to hx of ICH CODE: DNR/DNI. Patient does want treatment for reversible conditions however per discussion with the would not want prolonged or invasive treatments if she were clinically declining and they were unlikely to have any meaningful impact on her length or quality of life Diet: DM2, soft bite sized Disposition: May discharge to [facility] when medically stable. Leukocytosis not improving. Not stable for discharge today. Will stop IV fluids, transition to p.o. antibiotic, repeat CBC tomorrow Admission and Anticipated Discharge Date Admission Date: August 21, 2023 Subjective Patient remains very tired and weak. Denies chest pain, shortness of breath. Her only complaint is her right ankle pain which has been a chronic problem. Review of Systems Review of Systems: Denies any new complaint, denies fever or chills, pain Physical Exam Physical Exam: Head is atraumatic normocephalic Eyes sclera anicteric Neck supple no JVD Lungs clear to auscultation bilateral Heart sounds regular no murmurs gallops rubs or pressure Abdomen soft nontender nondistended Extremities no clubbing no cyanosis Neurologic alert awake, oriented to her name Results & Data Results & Data Vital Signs (Past 12 Hours) Vital Signs Temp Pulse Pulse Resp BP Pulse Ox O2 Del Method 08/25/23 11:20 37.2 C 83 18 121/73 94 Room Air 08/25/23 07:27 36.9 C 74 18 176/74 H 93 Room Air 08/25/23 07:26 77 08/25/23 02:47 37.2 C 77 18 161/77 H 90 Room Air Laboratory Results Abnormal lab results 08/24/23 08/24/23 08/25/23 Range/Units 16:31 19:56 08:03 POC Glucose 146 H 170 H 133 H (70-99) mg/dl 08/25/23 Range/Units 11:54 POC Glucose 237 H (70-99) mg/dl PG Care Time/CCT Total # of Minutes Spent Total Time Spent with Patient: Total time spent is greater than 50% in coordination of care (as documented) at patient's floor/unit and/or counseling patient: Coding Level of Care Code 52880 SUB INP/OBS CARE 3/50MIN Diagnoses Diabetes mellitus with hypoglycemia E11.649 UTI (urinary tract infection) N39.0; R31.9 Hematuria presence: with hematuria Urinary tract infection type: site unspecified Acute metabolic encephalopathy G93.41 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
--- NOTE | 2023-08-25 16:30 | XRay Report ---
XR ankle RT 2V CLINICAL HISTORY: Right ankle pain. COMPARISON: None FINDINGS: Alignment of the right ankle is anatomic. Talar dome is intact. There is no fracture. Join t spaces are preserved. There is ankle soft tissue swelling. IMPRESSION: 1. No fracture or dislocation within the right ankle. 2. Right ankle soft tissue swelling. ACT 112: Negative or not required by law. Electronically signed by: Gustavo Willingham M.D. 08/25/2023 4:29 PM
[2023-08-26 06:04] LABS: Hemoglobin 10.3 g/dl (12.0-16.0); Mean Corpuscular Hemoglobin 30.2 pg (25.0-34.0); Mean Corpuscular Hgb Conc 33.2 g/dL (32.0-36.0); Mean Corpuscular Volume 90.9 fL (80.0-100.0); Mean Platelet Volume 9.3 fL (9.4-12.4); Platelet Count 356 K/uL (130-400); RDW Coefficient of Variation 14.3 % (11.5-14.5); RDW Standard Deviation 46.9 fL (36.4-46.3); Red Blood Count 3.41 M/uL (4.20-5.40); White Blood Count 13.52 K/ul (4.8-10.8)
[2023-08-26 06:18] LABS: Calcium 8.2 mg/dl (8.6-10.3); Creatinine Clr Calc Pharmacy 64.1 ml/min; Est GFR (African American) 98.9 ml/min; Est GFR (Non-African American) 85.3 ml/min; Potassium 3.4 mmol/L (3.5-5.1)
[2023-08-26] MEDS: POTASSIUM CHLORIDE CRTAB 20 MEQ TABCR PO STA (11:22)
--- NOTE | 2023-08-26 14:17 | Hospitalist Progress Note ---
Date of Service August 26, 2023 Assessment & Plan (1) Diabetes mellitus with hypoglycemia: Plan: Type 2 diabetes mellitus on metformin and glimepiride, no history of insulin Last A1c 6.4%. Given hypoglycemic episodes and age and comorbidities recommend liberalized A1c goal of 8% Patient is hypoglycemic in the setting of sulfonylurea use and extremely poor appetite around a UTI Had multiple drops of blood sugar less than 80 which corrected with D50. Patient was initially treated with a D5 drip which was discontinued after her sugars stabilized Currently on normal saline due to poor p.o. intake. Sliding scale insulin initiated. Metformin held Recommend permanent discontinuation of glimepiride due to age, poor appetite, and hypoglycemia risk Patient is not eating well per and nurse. Will continue IV fluids at a lower rate 08/25 patient is eating better, her blood sugars are better, will stop IV fluids and monitor her off IV fluids 08/26 appears comfortable , tolerating diet, no fever (2) UTI (urinary tract infection): Plan: With several days of increased confusion, poor appetite, urinary incontinence and frequency UA is infected appearing, urine culture growing pansensitive E. coli Switched from cefepime to ceftriaxone. May discharge on p.o. Keflex Still has leukocytosis. White count elevated at 16 today. No other source found. No fever. Not short of breath. Blood cultures were not drawn on admission. Has been on antibiotics since admission. Not sure if getting blood cultures would help at this time. If white count is not coming down by tomorrow, may consider further workup. Nontoxic-appearing 08/25 patient remains nontoxic-appearing, CBC was not done today , repeat CBC tomorrow, will transition her to p.o. 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 No rhabdomyolysis his CK is unremarkable Repeat LFTs 08/23 much improved Plan DVT PPx: SCDs, pharmacyppx deferred due to hx of ICH CODE: DNR/DNI. Patient does want treatment for reversible conditions however per discussion with the would not want prolonged or invasive treatments if she were clinically declining and they were unlikely to have any meaningful impact on her length or quality of life Diet: DM2, soft bite sized Disposition: May discharge to [facility] when medically stable. Leukocytosis not improving. Not stable for discharge today. Will stop IV fluids, transition to p.o. antibiotic, repeat CBC tomorrow 08/26 wants to take her home, does not want rehab discharge home in am Admission and Anticipated Discharge Date Admission Date: August 21, 2023 Subjective Patient remains very tired and weak. Denies chest pain, shortness of breath. Her only complaint is her right ankle pain which has been a chronic problem. Review of Systems Review of Systems: Denies any new complaint, denies fever or chills, pain Physical Exam Physical Exam: Head is atraumatic normocephalic Eyes sclera anicteric Neck supple no JVD Lungs clear to auscultation bilateral Heart sounds regular no murmurs gallops rubs or pressure Abdomen soft nontender nondistended Extremities no clubbing no cyanosis Neurologic alert awake, oriented to her name Results & Data Results & Data Vital Signs (Past 12 Hours) Vital Signs Temp Pulse Pulse Resp BP BP Pulse Ox 08/26/23 11:45 36.7 C 82 18 129/73 129/73 93 08/26/23 10:56 08/26/23 07:43 71 08/26/23 07:41 36.7 C 74 18 152/85 H 93 08/26/23 04:06 37 C 75 16 160/68 H 92 O2 Del Method 08/26/23 11:45 Room Air 08/26/23 10:56 Room Air 08/26/23 07:43 08/26/23 07:41 Room Air 08/26/23 04:06 Room Air PG Care Time/CCT Total # of Minutes Spent Total Time Spent with Patient: Total time spent is greater than 50% in coordination of care (as documented) at patient's floor/unit and/or counseling patient: Coding Level of Care Code 47866 SUB INP/OBS CARE MIN Diagnoses Diabetes mellitus with hypoglycemia E11.649 UTI (urinary tract infection) N39.0; R31.9 Hematuria presence: with hematuria Urinary tract infection type: site unspecified Acute metabolic encephalopathy G93.41 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
[2023-08-26] MEDS: cephALEXin 500 MG CAP PO SCH (21:07)
[2023-08-27 06:37] LABS: Hematocrit (blood only) 31.6 % (37.0-47.0); Hemoglobin 10.5 g/dl (12.0-16.0); Mean Corpuscular Hemoglobin 30.3 pg (25.0-34.0); Mean Corpuscular Hgb Conc 33.2 g/dL (32.0-36.0); Mean Corpuscular Volume 91.3 fL (80.0-100.0); Mean Platelet Volume 9.3 fL (9.4-12.4); Platelet Count 379 K/uL (130-400); RDW Coefficient of Variation 14.3 % (11.5-14.5); RDW Standard Deviation 47.4 fL (36.4-46.3); Red Blood Count 3.46 M/uL (4.20-5.40); White Blood Count 14.85 K/ul (4.8-10.8)
--- NOTE | 2023-08-27 07:15 | Orthopedic Consultation ---
Date of Service August 27, 2023 Assessment & Plan (1) Acute right ankle pain: Most of her pain seems to be in her right ankle. She denies any traumas. The x-rays are negative. There may be a gout episode that is going on but is difficult to tell. I would normally try to give her an intra-articular inject ion, however, she is dealing with issues with her glucose levels and I do not want to give her an injection at this time due to postinjection hyperglycemia. I do not feel that any bracing or boots are necessary. She can keep the ankle elevated is much as possible and keep ice on it. She can be weightbearing as tolerated on the right ankle. I did call and talk to her personally about her. He would like to take her home. He feels he can take care of her. I told him to give it another week or so and if she continues to have pain in her ankle then she can call our office and we will have her seen as an outpatient. History of Present Illness Reason for Consultation: Right ankle pain. Requesting Physician: . Attending Physician: Cynthia Millan MD Geronimo is a pleasant 77-year-old female who has been admitted to the hospital for hypoglycemia and a UTI. She is getting better. Starting on Tuesday, she began having significant right leg pain. She does have a history of intra-articular hip injections at [facility]. She complains of mostly pain in her right ankle. She has been having difficulty ambulating because of the ankle pain. She denies any acute events. Orthopedics was consulted to evaluate and treat.. Allergies Allergy/AdvReac Type Severity Reaction Status Date / Time adrenalone Allergy Severe palptitatio Verified 07/07/23 15:03 ns codeine Allergy Severe vomit Verified 07/07/23 15:03 erythromycin base Allergy Severe pass out Verified 07/07/23 15:03 naproxen Allergy Severe chest pain Verified 07/07/23 15:03 empagliflozin Allergy Intermediate vaginal Verified 07/07/23 15:03 [From Jardiance] infection NSAIDS (Non-Steroidal Allergy Unknown UNKNOWN Verified 07/07/23 15:03 Anti-Inflamma bacitracin Allergy rash, Verified 07/07/23 15:03 [From Neosporin itching ([id number])] epinephrine [From Adrenalin] Allergy "heart Verified 07/07/23 15:03 racing" levofloxacin [From Levaquin] Allergy "can't Verified 07/07/23 15:03 remember the reaction" neomycin Allergy rash, Verified 07/07/23 15:03 [From Neosporin itching ([id number])] polymyxin B Allergy rash, Verified 07/07/23 15:03 [From Neosporin itching ([id number])] sitagliptin [From Januvia] Allergy vaginal Verified 07/07/23 15:03 infection ANY -MYCIN ABX Allergy Severe pass out Uncoded 07/07/23 15:03 ADHESIVE TAPE Allergy Unknown UNKNOWN Uncoded 07/07/23 15:03 Home Medications Medication Instructions Recorded Confirmed Type psrujokb-qvj-nfyyv acid 0.4 1 tab PO QAM ##0 05/26/17 08/21/23 History mg-lycopene 300 mcg-lutein 250 mcg tablet (Centrum Silver) vitamins A,C,F-jdrz-cqcjzg 2,148 1 tab PO BID ##0 05/26/17 08/21/23 History mcg-113 mg-45 mg-17.4 mg tablet (PreserVision AREDS) anastrozole 1 mg tablet 1 mg PO QPM 04/22/20 08/21/23 History blood sugar diagnostic (Contour #100 ea 07/27/22 07/07/23 Rx Next Test Strips) lancets (Microlet Lancet) #100 ea 07/27/22 07/07/23 Rx acetaminophen 500 mg tablet 1,000 mg PO BID 10/20/22 08/21/23 History (Tylenol Extra Strength) ferrous sulfate 142 mg (45 mg 142 mg PO QAM 10/20/22 08/21/23 History iron) tablet,extended release (Slow Fe) calcium carbonate 600 mg-vitamin 1 tab PO QPM 12/09/22 08/21/23 History D3 20 mcg (800 unit) chewable tablet (Caltrate 600 plus D) thyroid (pork) 15 mg tablet 15 mg PO QAM 12/09/22 08/21/23 History ([place] Thyroid) calcium carbonate 400 mg calcium 400 mg PO DAILY PRN Other 12/21/22 08/21/23 History (1,000 mg) chewable tablet (Tums Ultra) docusate sodium 100 mg capsule 100 mg PO PM PRN Constipation 12/21/22 08/21/23 History (Colace) thyroid (pork) 60 mg tablet 60 mg PO QAM #90 tabs 02/14/23 08/21/23 Rx ([place] Thyroid) glimepiride 2 mg tablet 2 mg PO BID #180 tabs 03/15/23 08/21/23 Rx metformin 500 mg tablet,extended 1,000 mg (2 x 500 mg) PO BID #360 07/20/23 08/21/23 Rx release 24 hr tabs Dietary Supplement 1 cap PO AMPM 08/21/23 08/21/23 History tramadol 50 mg tablet 50 mg PO AMPM PRN pain 08/21/23 08/21/23 History atorvastatin 10 mg tablet 10 mg PO QPM #90 tabs 08/23/23 Rx acetaminophen 325 mg tablet 650 mg (2 x 325 mg) PO Q4H PRN 08/26/23 Rx fever or pain #20 tabs cephalexin 500 mg capsule 500 mg PO BID #4 caps 08/26/23 Rx Past Med/Surg History Medical History Nausea and vomiting after administration of anesthetic agent Lumbar degenerative disc disease Diabetes mellitus, type 2 Skin lesion of left leg De Quervain's disease (tenosynovitis) Right wrist pain Invasive lobular carcinoma of breast, stage 1 (07/25/19) Lobular carcinoma in situ (LCIS) of right breast Vitamin B12 deficiency Short-term memory loss Postmenopausal osteoporosis Posterior vitreous detachment Mitral regurgitation f/u Dr. 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 Mitral valve prolapse Surgical History History of brain surgery 2014-transfer[facility] [place] [facility] [place]. History of lumpectomy of right breast 08/22/19-Dr. Eden Arredondo & sentinel node bx. History of breast biopsy at time of pregnancies years ago. History of thyroid surgery 2000 appx-thyroidectomy Hx of tonsillectomy H/O oral surgery H/O hemorrhoidectomy H/O: hysterectomy 1982 Family History Father , age 75 Diabetes Leukemia Heart disease Myocardial infarction Sister Diabetes Mother , age 65 heart problems Heart disease Myocardial infarction Daughter No problems noted. Son No problems noted. Aunt Breast cancer Denies family history of Ovarian cancer Prostate cancer Lung cancer Colorectal cancer Stroke Social History Smoking Status: Never smoker Tobacco Type: Cigarettes Age Started Using Tobacco: 18; Age Quit Using Tobacco: 19; packs per day: 0.25; Cigarettes Per Day: 1-2; Second Hand Exposure: No; Do You Dip or Chew Tobacco: No; Hx Alcohol Use: No Hx Substance Use: No Preferred Language: Danish Communication Ability: Effective Visual Impairment: Limited Hearing Ability: Normal Shop Tech Required: No Beliefs That Will Affect Care: None marital status: Current Living Situation: Spouse current occupational status: retired Feels Safe at Home: Yes Childhood Exposure to Second-Hand Smoke: Yes Diet: regular Diet Comment: regular caffeine: Yes (one coffee daily) Dental Care, Regularly: Yes Physical Activity Frequency: Does not Exercise Seatbelt Use: always Sunscreen Use: Yes Assistive Devices: Cane and Walker Review of Systems All systems reviewed & are unremarkable except as noted in HPI & below. Physical Exam On physical examination of the right leg, she does not have much pain with range of motion of the hip but a lot of her pain is located in her ankle. She is significant pain with pressure around her ankle. There is a little bit of swelling to the ankle. She has pain with forced dorsiflexion of the ankle.. Constitutional WD/WN, vitals as above Eyes PERRL, conjunctivae normal, anicteric sclerae ENMT external ear and nose normal, oropharynx normal Neck trachea midline, no thyromegaly Respiratory normal respiratory effort Cardiovascular RRR, no murmur, no edema Gastrointestinal (Abdomen) normal bowel sounds, soft, nontender, no hepatosplenomegaly Psychiatric A+Ox3, euthymic affect Results & Data Results & Data Laboratory Results . Diagnostic Findings X-rays of the right ankle show no evidence of fracture. I do not see any significant arthritis. The x-rays are essentially negative.. PG Care Time/CCT Total # of Minutes Spent Total Time Spent with Patient: Total time spent is greater than 50% in coordination of care (as documented) at patient's floor/unit and/or counseling patient: Coding Level of Care Code 79775 IN/OBS CONSULT LVL 4,60M Diagnoses Acute right ankle pain M25.571
[2023-08-27 07:29] LABS: BUN Creatinine Ratio 18.3 (10-20); Calcium 8.5 mg/dl (8.6-10.3); Creatinine Clr Calc Pharmacy 68.5 ml/min; Est GFR (African American) 100.5 ml/min; Est GFR (Non-African American) 86.7 ml/min; Potassium 3.2 mmol/L (3.5-5.1)
[2023-08-27 07:44] VITALS: RESP 18; TEMP 98.8; O2SAT 90
[2023-08-27] MEDS: POTASSIUM CHLORIDE CRTAB 20 MEQ TABCR PO STA (08:34)
[2023-08-27 10:11] VITALS: BP 129/73; PULSE 77
--- NOTE | 2023-08-27 15:43 | Discharge Summary ---
Date of Service August 27, 2023 Admission HPI Per Admitting Provider Geronimo is a 77-year-old female with a history of no short-term memory and cognitive decline following a intracranial hemorrhage many years ago, type 2 diabetes mellitus on metformin and glipizide, hypothyroidism, hyperlipidemia, and history of breast cancer continued on anastrozole 1 mg nightly who presents after being found in her bed unresponsive who did not appear to have changed posture at all since she was assisted to bed by her the previous night. She was hypoglycemic on EMS arrival was given D50 with transient improvement but recurrent hypoglycemic episodes on every hour rechecks while in the ER. Patient is not able to give any reliable medical history, and is oriented to name only. Collateral is provided with her who is her medical decision- maker who is at the bedside. He reports that over the last week she has been much more weak and confused than normal. She has also had multiple episodes of urinary incontinence and frequency which are unusual for her. She is typically able to ambulate with assistance with a walker from her however has been very weak and having more difficulty ambulating, and seems more confused when instructed to try to do things such as sit and stand. Over the last 2 days her appetite has been extremely poor and she has had almost nothing to eat; has only been able to take her pills which she last took evening prior to admission with a small amount of water and a small amount of pudding. At bedside she denies chest pain, chest pressure, fever, chills, sweats, abdominal pain however is a very limited historian. is at the bedside and provides a living will and advanced directives. This includes DNR/DNI, if she were to have a clinical decline and additional measures such as antibiotics were unlikely to save or prolong her life they would not want prolonged measures at that time. Would want reasonable medical interventions to treat acutely treatable conditions including her hyperglycemia and apparent UTI. No tobacco or alcohol use. Principal Diagnosis hypoglycemia, UTI Discharge Exam Head is atraumatic normocephalic Eyes sclera anicteric Neck supple no JVD Lungs clear to auscultation bilateral Heart sounds regular no murmurs gallops rubs or pressure Abdomen soft nontender nondistended Extremities no clubbing no cyanosis Neurologic alert awake, oriented to her name Discharge Data Allergies Allergy/AdvReac Type Severity Reaction Status Date / Time adrenalone Allergy Severe palptitatio Verified 07/07/23 15:03 ns codeine Allergy Severe vomit Verified 07/07/23 15:03 erythromycin base Allergy Severe pass out Verified 07/07/23 15:03 naproxen Allergy Severe chest pain Verified 07/07/23 15:03 empagliflozin Allergy Intermediate vaginal Verified 07/07/23 15:03 [From Jardiance] infection NSAIDS (Non-Steroidal Allergy Unknown UNKNOWN Verified 07/07/23 15:03 Anti-Inflamma bacitracin Allergy rash, Verified 07/07/23 15:03 [From Neosporin itching ([id number])] epinephrine [From Adrenalin] Allergy "heart Verified 07/07/23 15:03 racing" levofloxacin [From Levaquin] Allergy "can't Verified 07/07/23 15:03 remember the reaction" neomycin Allergy rash, Verified 07/07/23 15:03 [From Neosporin itching ([id number])] polymyxin B Allergy rash, Verified 07/07/23 15:03 [From Neosporin itching ([id number])] sitagliptin [From Januvia] Allergy vaginal Verified 07/07/23 15:03 infection ANY -MYCIN ABX Allergy Severe pass out Uncoded 07/07/23 15:03 ADHESIVE TAPE Allergy Unknown UNKNOWN Uncoded 07/07/23 15:03 Consultations 08/21/23 12:38 ED Decision to Admit Stat 08/25/23 15:34 Consult Orthopedic Surgery Routine Ordered Studies 08/21/23 11:11 CT head/brain wo con Stat Hospital Course (1) Diabetes mellitus with hypoglycemia: Type 2 diabetes mellitus on metformin and glimepiride, no history of insulin Last A1c 6.4%. Given hypoglycemic episodes and age and comorbidities recommend liberalized A1c goal of 8% Patient is hypoglycemic in the setting of sulfonylurea use and extremely poor appetite around a UTI Had multiple drops of blood sugar less than 80 which corrected with D50. Patient was initially treated with a D5 drip which was discontinued after her sugars stabilized Currently on normal saline due to poor p.o. intake. Sliding scale insulin initiated. Metformin held Recommend permanent discontinuation of glimepiride due to age, poor appetite, and hypoglycemia risk Patient is not eating well per and nurse. Will continue IV fluids at a lower rate 08/25 patient is eating better, her blood sugars are better, will stop IV fluids and monitor her off IV fluids 08/26 appears comfortable , tolerating diet, no fever (2) UTI (urinary tract infection): With several days of increased confusion, poor appetite, urinary incontinence and frequency UA is infected appearing, urine culture growing pansensitive E. coli Switched from cefepime to ceftriaxone. May discharge on p.o. Keflex Still has leukocytosis. White count elevated at 16 today. No other source found. No fever. Not short of breath. Blood cultures were not drawn on admission. Has been on antibiotics since admission. Not sure if getting blood cultures would help at this time. If white count is not coming down by tomorrow, may consider further workup. Nontoxic-appearing 08/25 patient remains nontoxic-appearing, CBC was not done today , repeat CBC tomorrow, will transition her to p.o. 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 No rhabdomyolysis his CK is unremarkable Repeat LFTs 08/23 much improved Plan DVT PPx: SCDs, pharmacyppx deferred due to hx of ICH CODE: DNR/DNI. Patient does want treatment for reversible conditions however per discussion with the would not want prolonged or invasive treatments if she were clinically declining and they were unlikely to have any meaningful impact on her length or quality of life Diet: DM2, soft bite sized Disposition: May discharge to [facility] when medically stable. Leukocytosis not improving. Not stable for discharge today. Will stop IV fluids, transition to p.o. antibiotic, repeat CBC tomorrow 08/26 wants to take her home, does not want rehab discharge home today, and patient refused rehab Total Time Total Time Spent Total Time Spent (In Minutes): 40 minutes Discharge Plan Discharge Items Patient Disposition: Home - Self-Care Reason For Visit: UNRESPONSIVE EPISODE, HYPGLYCEMIA Discharge Diagnosis: hypoglycemia, UTI Condition on Discharge: Fair Activity: Resume your previous activity Lifting: None Bathing: No limitations Weightbearing: Full weightbearing Non-emergency contact: Primary Care Provider Call non-emergency contact if: you have any medication questions, your pain is worsening and you have a fever Follow-up/Referrals: ProHolland MD [Primary Care Provider] - 09/02/23 3:00 pm Diet: Carb Consistent or DM2 Ambulatory Orders: Basic Metabolic Panel (Routine) Timeframe: 1 Week Location: Determined by Patient Ordered By: Cynthia Millan Complete Blood Count with Diff (Timed) Timeframe: 1 Week Location: Determined by Patient Ordered By: Cynthia Millan Addtl Attending Provider Instructions: follow up with ortho as outpatient Pending Studies at Discharge: No Stand-Alone Forms: Medication Instructions, [facility] [employer], Smoking Cessation Medications and DC Order Prescriptions: New acetaminophen 325 mg Tablet 650 mg PO Q4H PRN (Reason: fever or pain) Qty: 20 0RF cephalexin 500 mg Capsule 500 mg PO BID Qty: 4 0RF Continued anastrozole 1 mg tablet 1 mg PO QPM Slow Fe 142 mg (45 mg iron) tablet extended release 142 mg PO QAM PreserVision AREDS [id number] ufle-rn-tdcu Tablet 1 tab PO BID Qty: 0 Centrum Silver 0.4-300-250 mg-mcg-mcg Tablet 1 tab PO QAM Qty: 0 metformin 500 mg tablet extended release 24 hr 1,000 mg PO BID Qty: 360 3RF atorvastatin 10 mg tablet 10 mg PO QPM Qty: 90 3RF calcium carbonate [Tums Ultra] 400 mg calcium (1,000 mg) tablet,chewable 400 mg PO DAILY PRN (Reason: Other) docusate sodium [Colace] 100 mg capsule 100 mg PO PM PRN (Reason: Constipation) thyroid (pork) [[place] Thyroid] 60 mg tablet 60 mg PO QAM Qty: 90 3RF Rx Instructions: TAKE WITH 15MG FOR TOTAL OF 75 MG Caltrate 600 plus D 600 mg-20 mcg (800 unit) Tablet,Chewable 1 tab PO QPM thyroid (pork) [[place] Thyroid] 15 mg tablet 15 mg PO QAM Rx Instructions: TAKE WITH 60MG FOR TOTAL OF 75 MG tramadol 50 mg tablet 50 mg PO AMPM PRN (Reason: pain) Dietary Supplement 1 cap PO AMPM Rx Instructions: PER LIST--4 INGREDIENT CAPSULE FOR ENERGY Discontinued acetaminophen [Tylenol Extra Strength] 500 mg tablet 1,000 mg PO BID glimepiride 2 mg tablet 2 mg PO BID Qty: 180 3RF No Action (DME) lancets [Microlet Lancet] Misc See Rx Instructions .Route Qty: 100 3RF Rx Instructions: Change with a new lancet each day (DME) Contour Next Test Strips Strip See Rx Instructions .ROUTE .MEDSUPPLY Qty: 100 3RF Rx Instructions: Check blood sugars 1x a day alternating times Discharge Orders: Discharge Order (Routine); Ordered 08/27/23 Ordered By: Cynthia Millan Admission Data Admit Date/Time: 08/21/23 12:56 Attending Provider: Cynthia Millan Admit Provider: Charles Díaz Primary Care Provider: Holland Landin Other Providers: Charles Díaz; Jovan Redd [facility]; [facility]; Jose Angel Cantu Other Interventions: Discharge Summary Assessment (RN) Last Done: 08/27/23 10:09 Coding Level of Care Code 98478 INP/OBS DISCH >30 MIN Diagnoses Diabetes mellitus with hypoglycemia E11.649 UTI (urinary tract infection) N39.0; R31.9 Hematuria presence: with hematuria Urinary tract infection type: site unspecified Acute metabolic encephalopathy G93.41 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
== END 2023-08-27 12:03 | disposition home or self-care (01) | DRG 637 ==
LOC: ED 10:11 → SUATTDRO 12:56 → 2N 12:56

== ENCOUNTER 2024-12-04 21:39 | Inpatient (IN) ==
[2024-12-04] MEDS ORDERED: VANCOMYCIN CONSULT ACTIVE PRN (21:48)
[2024-12-04] MEDS ORDERED: VANCOMYCIN HCL 1,200 MG in SODIUM CHLORIDE 0.9% 500 ML IV ONE (21:48)
--- NOTE | 2024-12-04 21:54 | Emergency Department Note ---
History of Present Illness General Chief complaint: Altered Mental Status Stated complaint: ALTERED MENTAL STATUS Time Seen by Provider: 12/04/24 21:40 History of Present Illness This 79-year-old female presents ER for fever, nausea, diarrhea frequent falls increased confusion and abdominal pain for the past 2 days. EMS was called as the could not get her off the ground. EMS states that the patient has been more confused the past 2 days per the who should be arriving shortly. Patient complains of not feeling well with fever, chills and diarrhea with nausea. She is able to follow some commands but does appear to be somewhat confused. Temperature is 102. Home Medications Medication Instructions Recorded Confirmed Type [id number] acid 0.4 1 tab PO QAM ##0 05/26/17 12/05/24 History mg-lycopene 300 mcg-lutein 250 mcg tablet (Centrum Silver) anastrozole 1 mg tablet 1 mg PO QPM 04/22/20 12/05/24 History calcium 600 mg (as carbonate)-vit 1 tab PO QPM 12/09/22 12/05/24 History D3 20 mcg (800 unit) chewable tablet (Caltrate plus D) calcium carbonate (Tums Ultra) 400 mg PO DAILY PRN 12/21/22 12/05/24 History HEARTBURN/INDIGESTION Dietary Supplement 1 cap PO AMPM 08/21/23 12/05/24 History vitamins A,C,A-mpdg-wlbtjl 2,148 1 tab PO DAILY #0 tabs 09/13/23 12/05/24 History mcg-113 mg-45 mg-17.4 mg tablet (PreserVision AREDS) polyethylene glycol 3350 17 17 g PO DAILY 11/22/23 12/05/24 History gram/dose oral powder (Miralax) Contour Next Test Strips (blood #100 ea 12/14/23 11/16/24 Rx sugar diagnostic) lancets (Microlet Lancet) #100 ea 12/14/23 11/16/24 Rx tramadol 50 mg tablet 50 mg PO DAILY PRN pain #30 tabs 04/03/24 12/05/24 Rx prevagen 1 tab PO DAILY 04/19/24 12/05/24 History mupirocin 2 % topical ointment 1 applic topical DIRECTED PRN 07/25/24 12/05/24 History SKIN IRRITATIONS oxybutynin chloride 5 mg 5 mg PO DAILY #30 tabs 10/01/24 12/05/24 Rx tablet,extended release 24 hr metformin 500 mg tablet,extended 500 mg PO BID #180 tabs 11/05/24 12/05/24 Rx release 24 hr atorvastatin 10 mg tablet 10 mg PO QPM #90 tabs 11/16/24 12/05/24 Rx thyroid (pork) 60 mg tablet 60 mg PO QAM #90 tabs 11/16/24 12/05/24 Rx ([place] Thyroid) acetaminophen 500 mg tablet 1,000 mg PO BID PRN Pain 12/04/24 12/05/24 History (Tylenol Extra Strength) ferrous sulfate 137 mg (45 mg 137 mg PO DAILY 12/04/24 12/05/24 History iron) tablet,extended release (Slow Fe) inulin 2 gram chewable tablet 2 g PO QPM 12/04/24 12/05/24 History glucagon 3 mg/actuation nasal 3 mg intranasal DIRECTED PRN 12/05/24 12/05/24 History spray (Baqsimi) Hypoglycemia thyroid (pork) 15 mg tablet 15 mg PO 3XWK 12/05/24 12/05/24 History ([place] Thyroid) Allergies Allergy/AdvReac Type Severity Reaction Status Date / Time bacitracin Allergy Intermediate rash, Verified 12/04/24 23:56 [From Neosporin itching ([id number])] neomycin Allergy Intermediate rash, Verified 12/04/24 23:56 [From Neosporin itching ([id number])] polymyxin B Allergy Intermediate rash, Verified 12/04/24 23:56 [From Neosporin itching ([id number])] indomethacin [From Indocin] Allergy Unknown Unknown Verified 12/04/24 23:56 levofloxacin [From Levaquin] Allergy Unknown "can't Verified 12/04/24 23:56 remember the reaction" NSAIDS (Non-Steroidal Allergy Unknown UNKNOWN Verified 12/04/24 23:56 Anti-Inflamma adrenalone AdvReac Severe palptitatio Verified 12/04/24 23:56 ns codeine AdvReac Severe vomit Verified 12/04/24 23:56 erythromycin base AdvReac Severe pass out Verified 12/04/24 23:56 naproxen AdvReac Severe chest pain Verified 12/04/24 23:56 empagliflozin AdvReac Intermediate vaginal Verified 12/04/24 23:56 [From Jardiance] infection epinephrine [From Adrenalin] AdvReac Intermediate "heart Verified 12/04/24 23:56 racing" sitagliptin [From Januvia] AdvReac Intermediate vaginal Verified 12/04/24 23:56 infection adhesive tape AdvReac Mild SKIN Verified 12/04/24 23:56 IRRITATION ANY -MYCIN ABX AdvReac Severe pass out Uncoded 12/04/24 23:56 Past Med/Surg History Problem List (Updated 12/05/24 @ 00:41 by Danae Tafoya PA-C) Acute pyelonephritis (Acute) Acute UTI (Acute) AMS (altered mental status) (Acute) Sepsis (Acute) Constipation Peroneal tendonitis of right lower leg Diabetes mellitus with hypoglycemia Alteration consciousness (Acute) 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 [id number] Medical History De Quervain's tenosynovitis, left UTI (urinary tract infection) Electrolyte abnormality Acute dehydration Acute metabolic encephalopathy Acute right ankle pain Uncontrolled type 2 diabetes mellitus with hyperglycemia Nausea and vomiting after administration of anesthetic agent Lumbar degenerative disc disease Skin lesion of left leg De Quervain's disease (tenosynovitis) Right wrist pain Lobular carcinoma in situ (LCIS) of right breast Vitamin B12 deficiency Short-term memory loss Postmenopausal osteoporosis Posterior vitreous detachment Mitral regurgitation History of subarachnoid hemorrhage Hearing difficulty of both ears Cerebral aneurysm Seizure Mitral valve prolapse Surgical History History of brain surgery History of lumpectomy of right breast History of breast biopsy History of thyroid surgery Hx of tonsillectomy H/O oral surgery H/O hemorrhoidectomy H/O: hysterectomy Family History Father Diabetes Leukemia Heart disease Myocardial infarction Sister Diabetes Mother Heart disease Myocardial infarction Daughter No problems noted. Son No problems noted. Aunt Breast cancer Denies family history of Ovarian cancer Prostate cancer Lung cancer Colorectal cancer Stroke Social History Smoking Status: Unknown if ever smoked Tobacco Type: Cigarettes Age Started Using Tobacco: 18; Age Quit Using Tobacco: 19; packs per day: 0.25; Cigarettes Per Day: 1-2; Second Hand Exposure: No; Do You Dip or Chew Tobacco: No; Hx Alcohol Use: No Hx Substance Use: No Preferred Language: Estonian Communication Ability: Effective Visual Impairment: Partially Limited Hearing Ability: Normal Lease Examiner Required: No Beliefs That Will Affect Care: None marital status: Current Living Situation: Spouse Current Living Situation Comment: current occupational status: retired How many Children do You have: 2 Feels Safe at Home: Yes Childhood Exposure to Second-Hand Smoke: Yes Diet: regular Diet Comment: regular caffeine: Yes (one coffee daily) during the past year weight has: remained stable Dental Care, Regularly: Yes Physical Activity Frequency: Does not Exercise Seatbelt Use: always Sunscreen Use: Yes Assistive Devices: Cane, Walker and Other Review of Systems A total of 10 systems reviewed and were otherwise negative Physical Exam Vital Signs Vital Signs - 24 hr 12/04/24 21:45 12/04/24 21:50 12/04/24 21:55 Temperature 38.6 C H Temperature Source Oral Pulse Rate 92 H 89 Pulse Rhythm Regular Respiratory Rate 22 Respiratory Effort / Characteristics Non-Labored Respiratory Depth Normal Blood Pressure 134/75 Blood Pressure Mean 94 Blood Pressure Position Sitting Pulse Oximetry 88 L 93 Oxygen Delivery Method Room Air Nasal Cannula Oxygen Flow Rate 2 Sepsis Recent Fever Within 48 Hours Yes Sepsis New/Unexplained Change in Mental Status N/A Sepsis Action Taken by Nursing Physician Notified 12/04/24 22:26 12/04/24 23:26 12/05/24 00:00 Temperature 37.1 C Temperature Source Pulse Rate 81 82 80 Pulse Rhythm Regular Respiratory Rate 22 20 22 Respiratory Effort / Characteristics Respiratory Depth Blood Pressure 145/74 H 135/70 Blood Pressure Mean 97 93 Blood Pressure Position Pulse Oximetry 94 96 94 Oxygen Delivery Method Nasal Cannula Nasal Cannula Nasal Cannula Oxygen Flow Rate 2 2 2 Sepsis Recent Fever Within 48 Hours Sepsis New/Unexplained Change in Mental Status Sepsis Action Taken by Nursing VITALS: Vitals are noted on the nurse's note and reviewed by myself. Vital signs febrile. GENERAL: Elderly female following commands, in no acute distress, nondiaphoretic, well-developed well-nourished. SKIN: The skin was without rashes, erythema, edema, or bruising. There is no tenting of the skin. Capillary reflex less than 2 seconds. HEAD: Normocephalic atraumatic. EARS: External auditory canals clear EYES: Pupils equal round and reactive to light and accommodation. Conjunctivae without injection, sclerae without icterus. Extraocular movements intact. NOSE: Patent, no discharge. MOUTH: Mucous membranes mildly dry. Pharynx without erythema or exudate. Uvula midline. Airway patent. Tongue does not deviate. NECK: Supple without nuchal rigidity. No lymphadenopathy. No thyromegaly. Cervical spine is nontender. No JVD. HEART: Regular rate and rhythm LUNGS: Clear to auscultation bilaterally without wheezes, rales or rhonchi. No retractions or accessory muscle use. ABDOMEN: Positive bowel sounds x 4. Normal tympanic percussion. Soft, tender to palpation lower abdomen, without masses or organomegaly. Guzmán sign negative. No guarding or rebound tenderness. No CVA tenderness MUSCULOSKELETAL: No muscle atrophy, erythema, or edema noted. No thoracic or lumbar tenderness. Left thigh tender to palpation. All other extremities nontender to palpation. NEURO: Patient was alert and oriented to person place but not time. Normal sensation to light and sharp touch. No focal neurological deficits. Course Administered Medications Discontinued Medications Sodium Chloride (Nss) 1,000 mls @ 999 mls/hr IV .Q1H1M [facility] Stop: 12/04/24 23:00 Last Infusion: 12/04/24 23:34 Dose: Infused Documented By: Admin: 12/04/24 22:03 Dose: 999 mls/hr Documented By: MELY Acetaminophen (Ofirmev) 1,000 mg in 100 mls @ 400 mls/hr IV NOW STA Stop: 12/04/24 22:02 Last Infusion: 12/04/24 22:53 Dose: Infused Documented By: Admin: 12/04/24 22:03 Dose: 400 mls/hr Documented By: MELY Piperacillin Sod/Tazobactam Sod (Zosyn) 4.5 gm in 100 mls @ 200 mls/hr IV NOW ONE; Protocol Stop: 12/04/24 22:17 Last Infusion: 12/04/24 23:33 Dose: Infused Documented By: Admin: 12/04/24 22:52 Dose: 200 mls/hr Documented By: MELY Vancomycin HCl 1,250 mg/ (Sodium Chloride) 525 mls @ 200 mls/hr IV NOW STA Stop: 12/05/24 00:45 Last Admin: 12/04/24 22:52 Dose: 200 mls/hr Documented By: MELY Sodium Chloride (Nss) 1,000 mls @ 999 mls/hr IV .Q1H1M ONE Stop: 12/04/24 23:48 Last Infusion: 12/05/24 00:42 Dose: Infused Documented By: Admin: 12/04/24 23:34 Dose: 999 mls/hr Documented By: STEPHAN Ioversol (Optiray 320 125ml) 125 ml IV ONCE ONE Stop: 12/04/24 23:15 Last Admin: 12/04/24 23:14 Dose: 118 ml Documented By: VINICIO Critical Care Time Critical Care Time: Yes Total Critical Care Time: 35 I have personally spent 35 minutes of critical care time in the direct management of this patient. This includes bedside care, interpretation of diagnostic studies, and testing, discussion with consultants, patient, and family members, and other required patient management activities. This 35 minutes is in excess of all separately billable procedures. Medical Decision Making Medical Records Attestation: I reviewed the patient's medical records. Home Medications Current Medication List: was personally reviewed by ks Laboratory Data Attestation: I reviewed the patient's lab results. 12/04/24 21:58 12/04/24 21:58 Lab Results 12/04/24 12/04/24 12/04/24 Range/Units 21:58 22:19 22:46 WBC 20.94 H (4.8-10.8) K/ul RBC 3.95 L (4.20-5.40) M/uL Hgb 12.2 (12.0-16.0) g/dl Hct 36.3 L (37.0-47.0) % MCV 91.9 (80.0-100.0) fL MCH 30.9 (25.0-34.0) pg MCHC 33.6 (32.0-36.0) g/dL RDW Std Deviation 49.1 H (36.4-46.3) fL RDW Coeff of Sonia 14.6 H (11.5-14.5) % Plt Count 197 (130-400) K/uL MPV 10.8 (9.4-12.4) fL Immature Gran % (Auto) 0.4 % Neut % (Auto) 82.9 % Lymph % (Auto) 7.3 % Mcculloch % (Auto) 9.2 % Eos % (Auto) 0.0 % Baso % (Auto) 0.2 % Neut # (Auto) 17.35 H (1.40-6.50) K/uL Lymph # (Auto) 1.52 (1.20-3.40) K/uL M[place]ulloch # (Auto) 1.92 H (0.11-0.59) K/uL Eos # (Auto) 0.01 (0.00-0.50) K/uL Baso # (Auto) 0.05 (0.00-0.20) K/uL Immature Gran # (Auto) 0.09 (0.01-0.20) K/uL VBG pH 7.39 (7.36-7.41) VBG pCO2 35 L (38-50) mmHg VBG pO2 38 mmHg VBG HCO3 21 mmol/L VBG O2 Saturation 70.4 % VBG Base Excess -3.1 mEq/L Sodium 132 L (136-145) mmol/L Potassium 3.8 (3.5-5.1) mmol/L Chloride 97 L (98-107) mmol/L Carbon Dioxide 25 (21-32) mmol/L Anion Gap 10 (3-11) BUN 20 (6-23) mg/dl Creatinine 1.04 (0.6-1.2) mg/dl Est Cr Clr Drug Dosing 36.6 ml/min eGFR 54.00 BUN/Creatinine Ratio 19.2 (10-20) Glucose 190 H (70-99(Fasting)) mg/dl Lactate 1.7 (0.4-2.0) mmol/L Calcium 9.4 (8.6-10.3) mg/dl Magnesium 2.1 (1.7-2.4) mg/dl Total Bilirubin 0.9 (0.2-1.0) mg/dl Direct Bilirubin 0.2 (0-0.2) mg/dl AST 21 (13-39) U/L ALT 16 (7-52) U/L Alkaline Phosphatase 53 (34-104) U/L Troponin I High Sens 8.2 (0-14) pg/ml Total Protein 7.8 (6.0-8.3) gm/dl Albumin 3.8 (3.4-5.0) gm/dl Procalcitonin 0.82 H (0-0.5) ng/ml TSH 3.880 (0.300-4.500) uIu/ml Urine Color Yellow Urine Appearance Clear (Clear) Urine pH 5.5 (4.5-7.5) Ur Specific [place] 1.018 (1.000-1.030) Urine Protein 2+ H (Negative) Urine Glucose (UA) Negative (Negative) Urine Ketones Trace H (Negative) Urine Blood 2+ H (Negative) Urine Nitrite Positive A (Negative) Urine Bilirubin Negative (Negative) Urine Urobilinogen Negative (Negative) Ur Leukocyte Esterase 1+ H (Negative) Urine WBC (Auto) 11-20 H (0-5) /hpf Urine RBC (Auto) 0-2 (0-2) /hpf U Hyaline Cast (Auto) 11-20 H (0-2) /lpf U Epithel Cells (Auto) 0-2 (0-2) /hpf Urine Bacteria (Auto) 2+ H (None Seen) Hyaline Casts Present A (None Presnt) /lpf Urine Mucus Present A (None Prsent) Urine Comment Adenovirus (PCR) Not Detected (NotDetected) B. pertussis DNA (PCR) Not Detected (NotDetected) B.parapertussis DNA PCR Not Detected (NotDetected) C. pneumoniae DNA (PCR) Not Detected (NotDetected) Coronavirus OC43 (PCR) Not Detected (NotDetected) Coronavirus HKU1 (PCR) Not Detected (NotDetected) Coronavirus 229E (PCR) Not Detected (NotDetected) SARS-CoV-2 (PCR) Not Detected (NotDetected) Coronavirus NL63 (PCR) Not Detected (NotDetected) Human Metapneumovir PCR Not Detected (NotDetected) Influenza Type A (PCR) Not Detected (NotDetected) Influenza Type B (PCR) Not Detected (NotDetected) M. pneumoniae (PCR) Not Detected (NotDetected) Parainfluenza 1 (PCR) Not Detected (NotDetected) Parainfluenza 2 (PCR) Not Detected (NotDetected) Parainfluenza 3 (PCR) Not Detected (NotDetected) Parainfluenza 4 (PCR) Not Detected (NotDetected) RSV (PCR) Not Detected (NotDetected) Entero/Rhino (PCR) Not Detected (NotDetected) Imaging Data Attestation: I personally reviewed and interpreted this imaging study as follows: Radiologist's Impression: Abdomen/Pelvis CT 12/04/24 21:48 Exam(s): CT ABDOMEN + PELVIS With Contrast IV Amt: 118 ML OPTIRAY 320 EXAM: CT Abdomen and Pelvis With Intravenous Contrast CLINICAL HISTORY: AMS, D, lower abd pain. TECHNIQUE: Axial computed tomography images of the abdomen and pelvis with intravenous contrast. CTDI is 17.64 mGy and DLP is 913.5 mGy-cm. Automated exposure control was utilized for the study. A dose lowering technique was utilized adhering to the principles of ALARA. CONTRAST: Patient received 118 ML OPTIRAY 320 of IV contrast COMPARISON: No relevant prior studies available. FINDINGS: Lung bases: Subsegmental changes noted involving the lung bases. No consolidation. ABDOMEN: Liver: 7 mm rounded hypoattenuating area involving the posterior margin of the left lobe of the liver, too small to completely characterize but a presumed hepatic cyst. Gallbladder and bile ducts: Unremarkable. No calcified stones. No ductal dilation. Pancreas: Unremarkable. No mass. No ductal dilation. Spleen: Unremarkable. No splenomegaly. Adrenals: Unremarkable. No mass. Kidneys and ureters: Asymmetric left perinephric fat stranding. Subtle areas of increased attenuation involving the inferior aspect of the left kidney. There is asymmetric hyperenhancement of the left renal pelvis. No hydronephrosis or obstructive ureteral stones. The right kidney demonstrates normal enhancement without hydronephrosis. Stomach and bowel: No bowel obstruction. No definite asymmetric bowel mucosal abnormality. Mild stool burden. No appreciable diverticulitis. PELVIS: Appendix: No findings to suggest acute appendicitis. Bladder: Trace gas in the anterior bladder. No bladder wall thickening or bladder stones. Reproductive: Status post hysterectomy. ABDOMEN and PELVIS: Intraperitoneal space: Unremarkable. No free air. No significant fluid collection. Bones/joints: No acute fracture. No dislocation. Soft tissues: Unremarkable. Vasculature: Unremarkable. No abdominal aortic aneurysm. Lymph nodes: Unremarkable. No enlarged lymph nodes. IMPRESSION: 1. Asymmetric left perinephric fat stranding. Subtle areas of increased attenuation involving the inferior aspect of the left kidney. There is asymmetric hyperenhancement of the left renal pelvis. No hydronephrosis or obstructive ureteral stones. The appearance is most consistent with subtle left-sided pyelonephritis. No perinephric abscess. 2. No bowel obstruction. No definite asymmetric bowel mucosal abnormality. Mild stool burden. No appreciable diverticulitis. No free intraperitoneal fluid or pneumoperitoneum. 3. Trace gas in the anterior bladder. No bladder wall thickening or bladder stones. Suspect recent bladder catheterization. Please correlate with clinical history. Electronically signed by: Ricky Carmona MD 12/05/24 00:[address] 12/04/24 21:48 Exam(s): CT C SPINE EXAM: CT Cervical Spine Without Intravenous Contrast CLINICAL HISTORY: fall. TECHNIQUE: Axial computed tomography images of the cervical spine without intravenous contrast. CTDI is 22.01 mGy and DLP is 366.12 mGy-cm. Automated exposure control was utilized for the study. A dose lowering technique was utilized adhering to the principles of ALARA. COMPARISON: No relevant prior studies available. FINDINGS: Vertebrae: The vertebral bodies are intact without acute osseous traumatic injury. No anterolisthesis or retrolisthesis is identified. Straightening of the normal cervical lordosis is presumed related to positioning or muscle spasm. The facet joints are well aligned without subluxation or dislocation. The pedicles, transverse processes and spinous processes are intact. Incidental chronic mild facet hypertrophic changes noted bilaterally. Discs/spinal canal/neural foramina: No acute findings. At least moderate multilevel disc spondylosis with marginal hypertrophic osteophyte changes. No significant osseous spinal canal stenosis. Soft tissues: Incidental calcification of the nuchal ligament. No evidence for significant acute traumatic soft tissue injury. IMPRESSION: No acute osseous traumatic injury or significant abnormal alignment involving the cervical spine. Incidental chronic multilevel degenerative changes noted. Electronically signed by: Ricky Carmona MD 12/05/24 00:25 AM Chest CTA 12/04/24 21:48 Exam(s): CTA CHEST IV Amt: 118 cc opti 320 EXAM: CT Angiography Chest With Intravenous Contrast CLINICAL HISTORY: Evaluate for potential PE. TECHNIQUE: Axial computed tomographic angiography images of the chest with intravenous contrast. CTDI is 13.39 mGy and DLP is 355.46 mGy-cm. Automated exposure control was utilized for the study. A dose lowering technique was utilized adhering to the principles of ALARA. MIP reconstructed images were created and reviewed. COMPARISON: No relevant prior studies available. FINDINGS: Pulmonary arteries: No evidence for pulmonary embolism. Aorta: The thoracic aorta is normal in caliber. Evaluation of the ascending aorta is limited by pulsation artifact. No obvious dissection. Lungs: Expiratory lung volumes with dependent subsegmental changes. No definite focal airspace consolidation. Pleural space: Unremarkable. No significant effusion. No pneumothorax. Heart: Cardiomegaly no significant pericardial effusion. Bones/joints: No acute fracture. No dislocation. Soft tissues: Unremarkable. Lymph nodes: Unremarkable. No enlarged lymph nodes. Liver: Hepatomegaly incompletely included. IMPRESSION: 1. No evidence for pulmonary embolism. 2. Expiratory lung volumes with dependent subsegmental changes. No definite focal airspace consolidation. No pleural effusion or pneumothorax. Electronically signed by: Ricky Carmona MD 12/05/24 00:[address] 12/04/24 21:48 Exam(s): CT HEAD Without Contrast EXAM: CT Head Without Intravenous Contrast CLINICAL HISTORY: fall, sepsis. TECHNIQUE: Axial computed tomography images of the head/brain without intravenous contrast. CTDI is right mid week 38.64 mGy and DLP is 546.36 mGy-cm. Automated exposure control was utilized for the study. A dose lowering technique was utilized adhering to the principles of ALARA. COMPARISON: No relevant prior studies available. FINDINGS: Brain: No intracranial hemorrhage. No significant mass-effect. No evidence for cortical infarct. Minimal prominence of the cerebral sulci and sylvian fissures. Confluent periventricular deep white matter hypodense changes noted. Ventricles: The ventricles are prominent in size. Bones/joints: Unremarkable. No acute fracture. Soft tissues: No significant overlying acute traumatic soft tissue abnormality. Vasculature: Rounded metallic artifact is noted in the right supraclinoid region, consistent with prior aneurysm coiling. Sinuses: Unremarkable as visualized. No acute sinusitis. Mastoid air cells: Unremarkable as visualized. No mastoid effusion. IMPRESSION: 1. No intracranial hemorrhage. No significant mass-effect or midline shift. No skull fracture. 2. The ventricles are prominent in size. This is presumed related to central atrophy; however, normal pressure hydrocephalus may also have this appearance. Please correlate with clinical symptoms. Electronically signed by: Ricky Carmona MD 12/05/24 00:23 AM Chest X-Ray 12/04/24 21:49 Exam(s): XR CXR 1 VIEW EXAM: XR Chest, 1 View CLINICAL HISTORY: Sepsis. TECHNIQUE: Frontal view of the chest. COMPARISON: Portable chest single view dated 08/21/2023 FINDINGS: Lungs: Similar slight asymmetric elevation of the right hemidiaphragm. No focal airspace consolidation. The pulmonary vasculature is unremarkable. Pleural space: Unremarkable. No pneumothorax. No large pleural effusion. Heart: Unremarkable. No cardiomegaly. Mediastinum: The mediastinal contours are stable. The trachea is midline. Bones/joints: Unremarkable. No acute fracture. IMPRESSION: No acute cardiopulmonary process or significant alteration from the prior examination. Electronically signed by: Ricky Carmona MD 12/05/24 00:19 AM Femur X-Ray 12/04/24 21:54 Exam(s): XR LEFT FEMUR, 2 views EXAM: XR Left Femur, 2 Views CLINICAL HISTORY: pain. TECHNIQUE: Frontal and lateral views of the left femur. COMPARISON: No relevant prior studies available. 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 No aggressive features noted. No acute osseous abnormality. No dislocation. Soft tissues: Unremarkable. IMPRESSION: Negative radiographic evaluation of the left femur. Electronically signed by: Ricky Carmona MD 12/05/24 00:21 AM MDM Narrative Prior records/ancillary studies reviewed. Triage Nursing notes reviewed. Additional history obtained from EMS. The patient's history was concerning for fever, diarrhea, abdominal pain and increased confusion. Differential diagnosis: Etiologies such as sepsis, UTI, pneumonia, metabolic, electrolyte abnormalities, cardiac sources, intracerebral event, toxicologic, neurologic, as well as others were entertained. Physical examination: As above. Pertinent findings were abdominal pain and increased confusion. Vital signs reviewed and revealed febrile. ER treatment provided: IV fluid resuscitation with Normal saline solution, 2000 mL bolus. Septic protocol fluids. Blood and urine cultures Antibiotics: Zosyn and vancomycin ordered Tylenol ordered An order was placed for continuous cardiac monitoring. The monitor shows a rate of 60-100 with a sinus rhythm per my interpretation. He states she was too weak to get up and was concerned and called EMS. I spoke to the and did obtain more information. Apparently the patient's been sick the past few days. On reassessment the patient vital signs improved. Diagnostics interpretation by me: ECG: Ordered for increased confusion EKG: Normal sinus, Q waves in inferior leads, no acute ST-T changes, rate 86. Impression normal sinus rhythm Q waves in the inferior leads independently interpreted by myself The labs Independently Interpreted by myself revealed leukocytosis on CBC. Chemistry panel revealed hyperglycemia without DKA. LFTs revealed. Cardiac enzymes were negative. Serum Lactate measurement was negative. Procalcitonin was slightly elevated. Blood and urine cultures are pending. Urine concerning for infection sent for culture prior cultures reviewed. Patient was already given Zosyn. [facility] [address] [place] [address] / Director: Sadie Pinto M.D. Clinical Laboratory Report Name: LYUBOV GEE Acct: [id number] Status: [facility] : 1945 [facility] Date: 08/20/23 Age: 79 Sex: F Dis Date: Loc: Laboratory Specimen Drop Off Spec: [id number] Collected: 06/19/24-UNK Received: 06/19/24-[address]: Rosa Alberto, PA-C Source: Urine,Random OV Order: Ordered: Urine Culture Procedure Result Verified Site Urine Culture Final 06/21/24-1105 Organism 1 Escherichia coli [place] Count >100,000 CFU/ml Sens Sensitivities to Follow E coli RX M.I.C. --- --------- Amikacin S <=16 Amox/Clav S <=8/4 Ampicillin S <=8 Amp/Sul S <=4/2 Cefazolin S <=2 Cefepime S <=2 Cefotaxime S <=2 Cefoxitin S <=8 Ceftriaxone S <=1 Cefuroxime S <=4 Ciprofloxacin S <=0.25 Ertapenem S <=0.5 Gentamicin S <=2 Levofloxacin S <=0.5 Meropenem S <=1 Nitrofurantoin S <=32 Tobramycin S <=2 Trimeth/Sulfa S <=0.5/9.5 Pip/Tazo S <=8 S = SENSITIVE I = INTERMEDIATE R = RESISTANT Name: LYUBOV GEE Jared : 1945 PAGE 1 Printed: 12/04/24 9510 END OF REPORT Imaging studies: Imaging was reviewed and read by radiology Consultation: A consultation was placed with the hospitalist. The case was discussed and diagnostics were reviewed. The patient was evaluated in the ER for further treatment. Exam and history seem consistent with sepsis most likely from UTI/ pyelonephritis. Patient started on broad-spectrum antibiotics upon initial evaluation. Imaging was reviewed. Medicine was consulted case discussed. Patient was admitted to the medical service. Cultures are pending. Prior urine culture was reviewed. Patient was reassessed and skin and vital signs did improve. She was given IV fluids per septic protocol. Results were reviewed with the family. The chart was completed utilizing [employer] Speech voice recognition software. Grammatical errors, random word insertions, pronoun errors, and incomplete sentences are an occassional consequence of this system due to software limitations, ambient noise, and hardware issues. Any formal questions or concerns about the content, text, or information contained within the body of this dictation should be directly addressed to the physician clinical research assistant for clarification. Impression & Plan Sepsis, AMS (altered mental status), Acute UTI, Acute pyelonephritis Discharge Plan Visit Data Chief Complaint: Altered Mental Status Stated Complaint: ALTERED MENTAL STATUS ED Provider: Bradly Morillo ED Midlevel Provider: Danae Tafoya Discharge Problem: Sepsis, AMS (altered mental status), Acute UTI, Acute pyelonephritis Patient Disposition: Admitted As Inpatient Condition: Fair Forms Stand Alone Forms: My [facility] Prescriptions Prescriptions: No Action anastrozole 1 mg tablet 1 mg PO QPM Centrum Silver 0.4-300-250 mg-mcg-mcg Tablet 1 tab PO QAM Qty: 0 (DME) Contour Next Test Strips Strip See Rx Instructions .ROUTE .MEDSUPPLY Qty: 100 3RF Rx Instructions: Test blood sugar 3 times a week (DME) lancets [Microlet Lancet] Misc See Rx Instructions .Route Qty: 100 3RF Rx Instructions: Test blood sugar 3 times a week metformin 500 mg tablet extended release 24 hr 500 mg PO BID Qty: 180 5RF calcium carbonate [Tums Ultra] 400 mg calcium (1,000 mg) tablet,chewable 400 mg PO DAILY PRN (Reason: HEARTBURN/INDIGESTION) prevagen 1 tab PO DAILY oxybutynin chloride 5 mg tablet extended release 24hr 5 mg PO DAILY Qty: 30 2RF polyethylene glycol 3350 [Miralax] 17 gram/dose powder 17 g PO DAILY PreserVision AREDS 2,148 mcg-113 mg-45 mg-17.4mg tablet 1 tab PO DAILY Qty: 0 mupirocin 2 % ointment 1 applic topical DIRECTED PRN (Reason: SKIN IRRITATIONS) tramadol 50 mg tablet 50 mg PO DAILY PRN (Reason: pain) Qty: 30 5RF thyroid (pork) [[place] Thyroid] 60 mg tablet 60 mg PO QAM Qty: 90 3RF Rx Instructions: Take additional 15 mg on M, W, and F atorvastatin 10 mg tablet 10 mg PO QPM Qty: 90 3RF Caltrate 600 plus D 600 mg-20 mcg (800 unit) Tablet,Chewable 1 tab PO QPM acetaminophen [Tylenol Extra Strength] 500 mg Tablet 1,000 mg PO BID PRN (Reason: Pain) Fiber Gummies 2 gram Tablet,Chewable 2 g PO QPM Slow Fe 137 mg (45 mg iron) Tablet Extended Release 137 mg PO DAILY thyroid (pork) [[place] Thyroid] 15 mg tablet 15 mg PO 3XWK Rx Instructions: TOTAL DOSE 75 MG---Take along with 60 mg tab on M, W, and F. Baqsimi 3 mg/actuation spray,non-aerosol 3 mg intranasal DIRECTED PRN (Reason: Hypoglycemia) Dietary Supplement 1 cap PO AMPM Rx Instructions: PER LIST--4 INGREDIENT CAPSULE FOR ENERGY Referrals Referrals: Holland Landin MD [Primary Care Provider] - Discharge Problem: Sepsis Qualifiers: Sepsis type: sepsis due to unspecified organism Sepsis acute organ dysfunction status: without acute organ dysfunction Qualified Code(s): A41.9 - Sepsis, unspecified organism
[2024-12-04] MEDS: ACETAMINOPHEN 1,000 MG/100 ML VIAL IV STA (22:03)
[2024-12-04] MEDS: SODIUM CHLORIDE 0.9% 1,000 ML IV SCH (22:03)
[2024-12-04] MEDS ORDERED: VANCOMYCIN HCL 1,250 MG in SODIUM CHLORIDE 0.9% 250 ML IV STA (22:05)
[2024-12-04 22:16] LABS: Basophils # (auto) 0.05 K/uL (0.00-0.20); Basophils % (auto) 0.2 %; Eosinophils # (auto) 0.01 K/uL (0.00-0.50); Hematocrit (blood only) 36.3 % (37.0-47.0); Hemoglobin 12.2 g/dl (12.0-16.0); Immature Granulocytes # (auto) 0.09 K/uL (0.01-0.20); Immature Granulocytes % (auto) 0.4 %; Lymphocytes # (auto) 1.52 K/uL (1.20-3.40); Lymphocytes % (auto) 7.3 %; Mean Corpuscular Hemoglobin 30.9 pg (25.0-34.0); Mean Corpuscular Hgb Conc 33.6 g/dL (32.0-36.0); Mean Corpuscular Volume 91.9 fL (80.0-100.0); Mean Platelet Volume 10.8 fL (9.4-12.4); Monocytes # (auto) 1.92 K/uL (0.11-0.59); Monocytes % (auto) 9.2 %; Neutrophils # (auto) 17.35 K/uL (1.40-6.50); Neutrophils % (auto) 82.9 %; Platelet Count 197 K/uL (130-400); RDW Coefficient of Variation 14.6 % (11.5-14.5); RDW Standard Deviation 49.1 fL (36.4-46.3); Red Blood Count 3.95 M/uL (4.20-5.40); White Blood Count 20.94 K/ul (4.8-10.8)
[2024-12-04 22:31] LABS: Base Excess VBG -3.1 mEq/L; HCO3 VBG 21 mmol/L; Oxygen Saturation VBG 70.4 %; PCO2 VBG 35 mmHg (38-50); PO2 VBG 38 mmHg; pH VBG 7.39 (7.36-7.41)
[2024-12-04 22:34] LABS: Albumin Level 3.8 gm/dl (3.4-5.0); BUN Creatinine Ratio 19.2 (10-20); Bilirubin Direct 0.2 mg/dl (0-0.2); Bilirubin,Total 0.9 mg/dl (0.2-1.0); Calcium 9.4 mg/dl (8.6-10.3); Creatinine Clr Calc Pharmacy 36.6 ml/min; Magnesium 2.1 mg/dl (1.7-2.4); Potassium 3.8 mmol/L (3.5-5.1); Total Protein 7.8 gm/dl (6.0-8.3)
[2024-12-04 22:40] LABS: Troponin I High Sensitivity 8.2 pg/ml (0-14)
[2024-12-04 22:50] LABS: Thyroid Stimulating Hormone 3.88 uIu/ml (0.300-4.500)
[2024-12-04] MEDS: PIPERACILLIN/TAZOBACTAM 4.5 GM/100 ML BAG IV ONE (22:52)
[2024-12-04] MEDS: VANCOMYCIN HCL 1,250 MG in SODIUM CHLORIDE 0.9% 500 ML IV STA (22:52)
[2024-12-04] MEDS: OPTIRAY 320 125ml IV ONE (23:14)
[2024-12-04 23:20] LABS: Appearance Urine Clear (Clear); Bacteria Urine Automated 2+ (None Seen); Bilirubin Urine Negative (Negative); Blood Urine 2+ (Negative); Color Urine Yellow; Epithelial Cell Urine Auto 0-2 /hpf (0-2); Glucose Urine UA Negative (Negative); Hyaline Casts Urine Present /lpf (None Presnt); Ketones Urine Trace (Negative); Leukocyte Esterase Urine 1+ (Negative); Mucus Urine Present (None Prsent); Nitrite Urine Positive (Negative); Protein Urine 2+ (Negative); RBC Urine Automated 0-2 /hpf (0-2); Specific Gravity Urine 1.018 (1.000-1.030); Urobilinogen Urine Negative (Negative); pH Urine 5.5 (4.5-7.5)
[2024-12-04 23:21] LABS: Adenovirus PCR Not Detected (NotDetected); Bordetella parapertussis PCR Not Detected (NotDetected); Bordetella pertussis PCR Not Detected (NotDetected); Chlamydia pneumoniae PCR Not Detected (NotDetected); Coronavirus 229E PCR Not Detected (NotDetected); Coronavirus CoV-2 (COVID19)PCR Not Detected (NotDetected); Coronavirus HKU1 PCR Not Detected (NotDetected); Coronavirus NL63 PCR Not Detected (NotDetected); Coronavirus OC43PCR Not Detected (NotDetected); Human Metapneumovirus PCR Not Detected (NotDetected); Influenza A PCR Not Detected (NotDetected); Influenza B PCR Not Detected (NotDetected); Mycoplasma pneumoniae PCR Not Detected (NotDetected); Parainfluenza Virus 1 PCR Not Detected (NotDetected); Parainfluenza Virus 2 PCR Not Detected (NotDetected); Parainfluenza Virus 3 PCR Not Detected (NotDetected); Parainfluenza Virus 4 PCR Not Detected (NotDetected); Respiratory Syncytial VirusPCR Not Detected (NotDetected); Rhinovirus/Enterovirus PCR Not Detected (NotDetected)
[2024-12-04] MEDS: SODIUM CHLORIDE 0.9% 1,000 ML IV ONE (23:34)
--- NOTE | 2024-12-05 00:20 | CT Scan Report ---
Exam(s): CTA CHEST IV Amt: 118 cc opti 320 EXAM: CT Angiography Chest With Intravenous Contrast CLINICAL HISTORY: Evaluate for potential PE. TECHNIQUE: Axial computed tomographic angiography images of the chest with intravenous contrast. CTDI is 13.39 mGy and DLP is 355.46 mGy-cm. Automated exposure control was utilized for the study. A dose lowering technique was utilized adhering to the principles of ALARA. MIP reconstructed images were created and reviewed. COMPARISON: No relevant prior studies available. FINDINGS: Pulmonary arteries: No evidence for pulmonary embolism. Aorta: The thoracic aorta is normal in caliber. Evaluation of the ascending aorta is limited by pulsation artifact. No obvious dissection. Lungs: Expiratory lung volumes with dependent subsegmental changes. No definite focal airspace consolidation. Pleural space: Unremarkable. No significant effusion. No pneumothorax. Heart: Cardiomegaly no significant pericardial effusion. Bones/joints: No acute fracture. No dislocation. Soft tissues: Unremarkable. Lymph nodes: Unremarkable. No enlarged lymph nodes. Liver: Hepatomegaly incompletely included. IMPRESSION: 1. No evidence for pulmonary embolism. 2. Expiratory lung volumes with dependent subsegmental changes. No definite focal airspace consolidation. No pleural effusion or pneumothorax. Electronically signed by: Ricky Carmona MD 12/05/24 00:19 AM
--- NOTE | 2024-12-05 00:21 | XRay Report ---
Exam(s): XR CXR 1 VIEW EXAM: XR Chest, 1 View CLINICAL HISTORY: Sepsis. TECHNIQUE: Frontal view of the chest. COMPARISON: Portable chest single view dated 08/21/2023 FINDINGS: Lungs: Similar slight asymmetric elevation of the right hemidiaphragm. No focal airspace consolidation. The pulmonary vasculature is unremarkable. Pleural space: Unremarkable. No pneumothorax. No large pleural effusion. Heart: Unremarkable. No cardiomegaly. Mediastinum: The mediastinal contours are stable. The trachea is midline. Bones/joints: Unremarkable. No acute fracture. IMPRESSION: No acute cardiopulmonary process or significant alteration from the prior examination. Electronically signed by: Ricky Carmona MD 12/05/24 00:19 AM
--- NOTE | 2024-12-05 00:22 | XRay Report ---
Exam(s): XR LEFT FEMUR, 2 views EXAM: XR Left Femur, 2 Views CLINICAL HISTORY: pain. TECHNIQUE: Frontal and lateral views of the left femur. COMPARISON: No relevant prior studies available. 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 No aggressive features noted. No acute osseous abnormality. No dislocation. Soft tissues: Unremarkable. IMPRESSION: Negative radiographic evaluation of the left femur. Electronically signed by: Ricky Carmona MD 12/05/24 00:21 AM
--- NOTE | 2024-12-05 00:24 | CT Scan Report ---
Exam(s): CT HEAD Without Contrast EXAM: CT Head Without Intravenous Contrast CLINICAL HISTORY: fall, sepsis. TECHNIQUE: Axial computed tomography images of the head/brain without intravenous contrast. CTDI is right mid week 38.64 mGy and DLP is 546.36 mGy-cm. Automated exposure control was utilized for the study. A dose lowering technique was utilized adhering to the principles of ALARA. COMPARISON: No relevant prior studies available. FINDINGS: Brain: No intracranial hemorrhage. No significant mass-effect. No evidence for cortical infarct. Minimal prominence of the cerebral sulci and sylvian fissures. Confluent periventricular deep white matter hypodense changes noted. Ventricles: The ventricles are prominent in size. Bones/joints: Unremarkable. No acute fracture. Soft tissues: No significant overlying acute traumatic soft tissue abnormality. Vasculature: Rounded metallic artifact is noted in the right supraclinoid region, consistent with prior aneurysm coiling. Sinuses: Unremarkable as visualized. No acute sinusitis. Mastoid air cells: Unremarkable as visualized. No mastoid effusion. IMPRESSION: 1. No intracranial hemorrhage. No significant mass-effect or midline shift. No skull fracture. 2. The ventricles are prominent in size. This is presumed related to central atrophy; however, normal pressure hydrocephalus may also have this appearance. Please correlate with clinical symptoms. Electronically signed by: Ricky Carmona MD 12/05/24 00:23 AM
--- NOTE | 2024-12-05 00:27 | CT Scan Report ---
Exam(s): CT C SPINE EXAM: CT Cervical Spine Without Intravenous Contrast CLINICAL HISTORY: fall. TECHNIQUE: Axial computed tomography images of the cervical spine without intravenous contrast. CTDI is 22.01 mGy and DLP is 366.12 mGy-cm. Automated exposure control was utilized for the study. A dose lowering technique was utilized adhering to the principles of ALARA. COMPARISON: No relevant prior studies available. FINDINGS: Vertebrae: The vertebral bodies are intact without acute osseous traumatic injury. No anterolisthesis or retrolisthesis is identified. Straightening of the normal cervical lordosis is presumed related to positioning or muscle spasm. The facet joints are well aligned without subluxation or dislocation. The pedicles, transverse processes and spinous processes are intact. Incidental chronic mild facet hypertrophic changes noted bilaterally. Discs/spinal canal/neural foramina: No acute findings. At least moderate multilevel disc spondylosis with marginal hypertrophic osteophyte changes. No significant osseous spinal canal stenosis. Soft tissues: Incidental calcification of the nuchal ligament. No evidence for significant acute traumatic soft tissue injury. IMPRESSION: No acute osseous traumatic injury or significant abnormal alignment involving the cervical spine. Incidental chronic multilevel degenerative changes noted. Electronically signed by: Ricky Carmona MD 12/05/24 00:25 AM
--- NOTE | 2024-12-05 00:37 | CT Scan Report ---
Exam(s): CT ABDOMEN + PELVIS With Contrast IV Amt: 118 ML OPTIRAY 320 EXAM: CT Abdomen and Pelvis With Intravenous Contrast CLINICAL HISTORY: AMS, D, lower abd pain. TECHNIQUE: Axial computed tomography images of the abdomen and pelvis with intravenous contrast. CTDI is 17.64 mGy and DLP is 913.5 mGy-cm. Automated exposure control was utilized for the study. A dose lowering technique was utilized adhering to the principles of ALARA. CONTRAST: Patient received 118 ML OPTIRAY 320 of IV contrast COMPARISON: No relevant prior studies available. FINDINGS: Lung bases: Subsegmental changes noted involving the lung bases. No consolidation. ABDOMEN: Liver: 7 mm rounded hypoattenuating area involving the posterior margin of the left lobe of the liver, too small to completely characterize but a presumed hepatic cyst. Gallbladder and bile ducts: Unremarkable. No calcified stones. No ductal dilation. Pancreas: Unremarkable. No mass. No ductal dilation. Spleen: Unremarkable. No splenomegaly. Adrenals: Unremarkable. No mass. Kidneys and ureters: Asymmetric left perinephric fat stranding. Subtle areas of increased attenuation involving the inferior aspect of the left kidney. There is asymmetric hyperenhancement of the left renal pelvis. No hydronephrosis or obstructive ureteral stones. The right kidney demonstrates normal enhancement without hydronephrosis. Stomach and bowel: No bowel obstruction. No definite asymmetric bowel mucosal abnormality. Mild stool burden. No appreciable diverticulitis. PELVIS: Appendix: No findings to suggest acute appendicitis. Bladder: Trace gas in the anterior bladder. No bladder wall thickening or bladder stones. Reproductive: Status post hysterectomy. ABDOMEN and PELVIS: Intraperitoneal space: Unremarkable. No free air. No significant fluid collection. Bones/joints: No acute fracture. No dislocation. Soft tissues: Unremarkable. Vasculature: Unremarkable. No abdominal aortic aneurysm. Lymph nodes: Unremarkable. No enlarged lymph nodes. IMPRESSION: 1. Asymmetric left perinephric fat stranding. Subtle areas of increased attenuation involving the inferior aspect of the left kidney. There is asymmetric hyperenhancement of the left renal pelvis. No hydronephrosis or obstructive ureteral stones. The appearance is most consistent with subtle left-sided pyelonephritis. No perinephric abscess. 2. No bowel obstruction. No definite asymmetric bowel mucosal abnormality. Mild stool burden. No appreciable diverticulitis. No free intraperitoneal fluid or pneumoperitoneum. 3. Trace gas in the anterior bladder. No bladder wall thickening or bladder stones. Suspect recent bladder catheterization. Please correlate with clinical history. Electronically signed by: Ricky Carmona MD 12/05/24 00:36 AM
--- NOTE | 2024-12-05 00:46 | Emergency Department Note ---
ED Visit Note I was consulted in regards to the patient's presentation and plan of care by the Advanced Practice Provider. I engaged in a detailed/meaningful discussion with the Advanced Practice Provider in regards to this patient's workup and plan of care. I performed a substantiative portion of the medical decision making following discussion with the Advanced Practice Provider. Please see the Advanced Practice Provider's separate documentation for full details of the patient's visit. I agree with the assessment and plan of Bridgette Tafoya PA-C. Bradly Morillo, DO Emergency Medicine .
--- NOTE | 2024-12-05 01:00 | History & Physical Report ---
Date of Service December 05, 2024 Assessment & Plan (1) Sepsis with metabolic encephalopathy: (2) Pyelonephritis of left kidney: (3) Hypoxia: (4) Acute diarrhea: (5) Cognitive social or emotional deficit following nontraumatic subarachnoid hemorrhage: Plan Patient is an 79-year-old female with past medical history of cerebral aneurysm and subarachnoid hemorrhage resulting in confusion and fatigue for several years, type II DM, breast cancer s/p lumpectomy and radiation in 2019, hyp othyroidism, hyperlipidemia, stage III CKD, urinary incontinence. Patient presented due to several days of lethargy and diarrhea. She was found to have left-sided pyelonephritis, UA appears positive, and meet SIRS criteria with white count of 20.94, temperature 38.6 C, and heart rate 92. #Sepsis/altered mental status/left pyelonephritis - Patient worsening lethargy, weakness, ambulatory dysfunction. UA Positive Nitrates, 1+ LE, 10-20 WBC, 2+ Bacteria, Hyaline Casts. AP ct shows subtle left sided pyelonephritis. + SIRS: WBC 20.94 with neutrophil predominance (elevated from baseline), tachycardic (HR 92), febrile 38.6C on arrival to ED - lactate 1.7, procal 0.82 - Sepsis fluid bolus for ideal body weight = 1636.20; given 2L NSS in ED - Continue fluid resuscitation with NSS @ 125 ml/hr - Previous urine cultures have grown E. coli (resistant to Augmentin, ampicillin, and Unasyn), pansensitive Pseudomonas, and Klebsiella (intermediate resistance to nitrofurantoin) - transition Zosyn and vancomycin to Rocephin as all recent cultures have grown E. coli - if patient clinically deteriorating or develops into septic shock, consider broadening antibiotic coverage - follow urine and blood cultures - IV Tylenol prn - hold tramadol until cognition improves - aspiration and fall precautions - PT/OT ordered - case management consulted - see ACP note - may require placement if symptoms do not improve with tx, provides 24hr care at home #Hypoxia - Became hypoxic at 88% on room air, currently on 2L NC at time of admi ssion. CXR and chest CTA negative. Biofire negative. Suspect 2/2 above. - oxygen prn for O2 <94%, wean as tolerated - incentive spirometry #Diarrhea - x 2 days, loose. Denies recent ABX use. - stool cultures ordered #hyponatremia - Na 132, suspect 2/2 hypovolemia with poor PO intake and diarrhea. - NSS as above - trend BMP #T2DM - Most recent A1C 6.7%. - hold metformin after IV contrast - loose SSI #Hx of cerebral aneurysm and subarachnoid hemorrhage - September 2014 follows with neurosurgery. Patient lethargic at baseline, sleeping 20 to 22 hours/day at baseline requires 24-hour supervision, however patient reports she can perform ADL at baseline. Head CT negative for acute changes. #urinary incontinence - contributing to recurrent UTIs - continue oxybutynin #Right breast lobular carcinoma in situ - s/p lumpectomy and radiation in 2019 - continue anastrozole #HLD - continue statin #hypothyroidism TSH WNL Continue [place] thyroid VTE ppx: SCDs, defer with history of subarachnoid hemorrhage Dispo: PCU Admission and Anticipated Discharge Date Admission Date: 12/05/24 History of Present Illness Chief Complaint: AMS Primary Care Provider: Holland Landin MD Patient is an 79-year-old female with past medical history of cerebral aneurysm and subarachnoid hemorrhage resulting in confusion and fatigue for several years, type II DM, breast cancer s/p lumpectomy and radiation in 2019, hypothyroidism, hyperlipidemia, stage III CKD, urinary incontinence. Patient presented due to several days of lethargy and diarrhea. She was found to have left-sided pyelonephritis, UA appears positive, and meet SIRS criteria with white count of 20.94, temperature 38.6 C, and heart rate 92. Patient seen at bedside with her present, she was sleepy on exam however able to follow commands and answer questions. Extensively discussed at bedside with the patient's regarding his care for her at home. See ACP note. Over the past few weeks she has been more lethargic, not eating or drinking, unable to ambulate, and unable to perform ADLs. Her stated that this has been acutely worsened for the past few days as she became completely limp and collapsed to the floor this evening when he tried to help her to the bathroom resulting in him calling EMS for her to be brought in as he did not know what to do anymore. Patient has a history of frequent UTIs growing E. coli, distant history of ongoing Pseudomonas. UA appears infectious in AP CT showed left pyelonephritis. Patient's also stated she has had diarrhea for 2 days, that is loose and without hematochezia. He denies any watery stools or recent antibiotic use. He has had a difficult time cleaning her up at home with the diarrhea because she is so fatigued and weak. She has still been getting her home medication in applesauce at home, she has only taken a few bites of food a few past few days. She has DNR/DNI status. Allergies Allergy/AdvReac Type Severity Reaction Status Date / Time bacitracin Allergy Intermediate rash, Verified 12/04/24 23:56 [From Neosporin itching ([id number])] neomycin Allergy Intermediate rash, Verified 12/04/24 23:56 [From Neosporin itching ([id number])] polymyxin B Allergy Intermediate rash, Verified 12/04/24 23:56 [From Neosporin itching ([id number])] indomethacin [From Indocin] Allergy Unknown Unknown Verified 12/04/24 23:56 levofloxacin [From Levaquin] Allergy Unknown "can't Verified 12/04/24 23:56 remember the reaction" NSAIDS (Non-Steroidal Allergy Unknown UNKNOWN Verified 12/04/24 23:56 Anti-Inflamma adrenalone AdvReac Severe palptitatio Verified 12/04/24 23:56 ns codeine AdvReac Severe vomit Verified 12/04/24 23:56 erythromycin base AdvReac Severe pass out Verified 12/04/24 23:56 naproxen AdvReac Severe chest pain Verified 12/04/24 23:56 empagliflozin AdvReac Intermediate vaginal Verified 12/04/24 23:56 [From Jardiance] infection epinephrine [From Adrenalin] AdvReac Intermediate "heart Verified 12/04/24 23:56 racing" sitagliptin [From Januvia] AdvReac Intermediate vaginal Verified 12/04/24 23:56 infection adhesive tape AdvReac Mild SKIN Verified 12/04/24 23:56 IRRITATION ANY -MYCIN ABX AdvReac Severe pass out Uncoded 12/04/24 23:56 Home Medications Medication Instructions Recorded Confirmed Type carpqfdy-avi-uiqzr acid 0.4 1 tab PO QAM ##0 05/26/17 12/05/24 History mg-lycopene 300 mcg-lutein 250 mcg tablet (Centrum Silver) anastrozole 1 mg tablet 1 mg PO QPM 04/22/20 12/05/24 History calcium 600 mg (as carbonate)-vit 1 tab PO QPM 12/09/22 12/05/24 History D3 20 mcg (800 unit) chewable tablet (Caltrate plus D) calcium carbonate (Tums Ultra) 400 mg PO DAILY PRN 12/21/22 12/05/24 History HEARTBURN/INDIGESTION Dietary Supplement 1 cap PO AMPM 08/21/23 12/05/24 History vitamins A,C,G-ydal-qysqnv 2,148 1 tab PO DAILY #0 tabs 09/13/23 12/05/24 History mcg-113 mg-45 mg-17.4 mg tablet (PreserVision AREDS) polyethylene glycol 3350 17 17 g PO DAILY 11/22/23 12/05/24 History gram/dose oral powder (Miralax) Contour Next Test Strips (blood #100 ea 12/14/23 11/16/24 Rx sugar diagnostic) lancets (Microlet Lancet) #100 ea 12/14/23 11/16/24 Rx tramadol 50 mg tablet 50 mg PO DAILY PRN pain #30 tabs 04/03/24 12/05/24 Rx prevagen 1 tab PO DAILY 04/19/24 12/05/24 History mupirocin 2 % topical ointment 1 applic topical DIRECTED PRN 07/25/24 12/05/24 History SKIN IRRITATIONS oxybutynin chloride 5 mg 5 mg PO DAILY #30 tabs 10/01/24 12/05/24 Rx tablet,extended release 24 hr metformin 500 mg tablet,extended 500 mg PO BID #180 tabs 11/05/24 12/05/24 Rx release 24 hr atorvastatin 10 mg tablet 10 mg PO QPM #90 tabs 11/16/24 12/05/24 Rx thyroid (pork) 60 mg tablet 60 mg PO QAM #90 tabs 11/16/24 12/05/24 Rx ([place] Thyroid) acetaminophen 500 mg tablet 1,000 mg PO BID PRN Pain 12/04/24 12/05/24 History (Tylenol Extra Strength) ferrous sulfate 137 mg (45 mg 137 mg PO DAILY 12/04/24 12/05/24 History iron) tablet,extended release (Slow Fe) inulin 2 gram chewable tablet 2 g PO QPM 12/04/24 12/05/24 History glucagon 3 mg/actuation nasal 3 mg intranasal DIRECTED PRN 12/05/24 12/05/24 History spray (Baqsimi) Hypoglycemia thyroid (pork) 15 mg tablet 15 mg PO 3XWK 12/05/24 12/05/24 History ([place] Thyroid) Past Med/Surg History Problem List (Updated 12/05/24 @ 02:48 by Karena Perry PA-C) Acute diarrhea Hypoxia Pyelonephritis of left kidney Sepsis with metabolic encephalopathy Acute pyelonephritis (Acute) Acute UTI (Acute) AMS (altered mental status) (Acute) Sepsis (Acute) Constipation Peroneal tendonitis of right lower leg Diabetes mellitus with hypoglycemia Alteration consciousness (Acute) 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 [id number] Medical History De Quervain's tenosynovitis, left UTI (urinary tract infection) Electrolyte abnormality Acute dehydration Acute metabolic encephalopathy Acute right ankle pain Uncontrolled type 2 diabetes mellitus with hyperglycemia Nausea and vomiting after administration of anesthetic agent Lumbar degenerative disc disease Skin lesion of left leg De Quervain's disease (tenosynovitis) Right wrist pain Lobular carcinoma in situ (LCIS) of right breast Vitamin B12 deficiency Short-term memory loss Postmenopausal osteoporosis Posterior vitreous detachment Mitral regurgitation History of subarachnoid hemorrhage Hearing difficulty of both ears Cerebral aneurysm Seizure Mitral valve prolapse Surgical History History of brain surgery History of lumpectomy of right breast History of breast biopsy History of thyroid surgery Hx of tonsillectomy H/O oral surgery H/O hemorrhoidectomy H/O: hysterectomy Family History Father Diabetes Leukemia Heart disease Myocardial infarction Sister Diabetes Mother Heart disease Myocardial infarction Daughter No problems noted. Son No problems noted. Aunt Breast cancer Denies family history of Ovarian cancer Prostate cancer Lung cancer Colorectal cancer Stroke Social History Smoking Status: Unknown if ever smoked Tobacco Type: Cigarettes Age Started Using Tobacco: 18; Age Quit Using Tobacco: 19; packs per day: 0.25; Cigarettes Per Day: 1-2; Second Hand Exposure: No; Do You Dip or Chew Tobacco: No; Hx Alcohol Use: No Hx Substance Use: No Preferred Language: Kittitian Communication Ability: Effective Visual Impairment: Partially Limited Hearing Ability: Normal Waste Duster Required: No Beliefs That Will Affect Care: None marital status: Current Living Situation: Spouse Current Living Situation Comment: current occupational status: retired How many Children do You have: 2 Feels Safe at Home: Yes Childhood Exposure to Second-Hand Smoke: Yes Diet: regular Diet Comment: regular caffeine: Yes (one coffee daily) during the past year weight has: remained stable Dental Care, Regularly: Yes Physical Activity Frequency: Does not Exercise Seatbelt Use: always Sunscreen Use: Yes Assistive Devices: Cane, Walker and Other Review of Systems Review of Systems: see HPI Physical Exam Physical Exam: The patient is sleeping, responds to verbal stimuli and follows commands. HEENT- EOMI, mucous membranes dry. Hearing grossly intact. Heart-normal S1 and S2. No murmurs, rubs or gallops. Lungs-clear bilaterally, no respiratory distress, no accessory muscle use. Abdomen-normal bowel sounds and soft. No ascites noted. Non-tender. Extremities- no clubbing, cyanosis, or edema. Results & Data Results & Data Vital Signs (Past 12 Hours) Vital Signs Temp Pulse Resp BP Pulse Ox O2 Del Method O2 Flow Rate 12/05/24 00:00 80 22 135/70 94 Nasal Cannula 2 12/04/24 23:26 37.1 C 82 20 145/74 H 96 Nasal Cannula 2 12/04/24 22:26 81 22 94 Nasal Cannula 2 12/04/24 21:55 89 12/04/24 21:50 93 Nasal Cannula 2 12/04/24 21:45 38.6 C H 92 H 22 134/75 88 L Room Air Laboratory Results reviewed CBC, CMP, VBG, lactate, magnesium, troponin, procalcitonin, TSH, UA, bio fire Diagnostic Findings reviewed femur XR, chest XR, head CT, chest CTA, cervical spine CT, AP CT Medications Administered ED2L NSS bolus, Tylenol 1G IV, Zosyn and vancomycin IV ECG Additional Comments: NSR Rate 86 QTc 442 Code Status & VTE Plan Code Status dnr/dni VTE Prophylaxis Plan VTE Prophylaxis will be ordered: Yes Supervising Physician Co-Signing Physician Notes I personally saw and examined the patient. I independently reviewed the labs, EKG, imaging, problem list, medication list, past medical history and family history. I verified all balderrama points and agree with Karena Perry PA-C with the following exceptions and/or additions: 79 year old female presents to the ER with altered mental state and generalized weakness O/E Alert to voice, not orientated x3, HS RRR, no murmurs, Chest CTAB, Abdo SNT, no CVA tenderness A/P Altered mental state / pyelonephritis / sepsis - lactate 1.7, IV ceftriaxone, follow up urine and blood culture. One prior culture positive for pseudomonas but recurrently positive for E. coli therefore coverage for this deferred on admission. 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
--- NOTE | 2024-12-05 01:52 | Advance Care Plan Prog Note ---
Advanced Care Planning Note Date of Discussion December 05, 2024 ACP Discussion Diagnoses requiring ACP discussion: AMS, sepsis A parl-pk-qert discussion with the patient and her , Kole, regarding the patient's advanced care planning took place during this hospitalization on the above date. The discussion included the explanation and discussion of advance directives and associated forms/documents, as well as the patient's current code status. We also discussed at length the patient's medical conditions (both acute and chronic), general prognosis, treatment options, and goals of care. The following summarizes the discussion: extensively discussed at bedside with the patient's regarding his care for her at home. Patient has had short-term memory loss and fatigue since cerebral aneurysm and subarachnoid hemorrhage in September 2014. Patient sleeps approximately 20 to 22 hours/day and is under 24-hour supervision with her . The patient's stated she could ambulate with a walker, be awake for several hours if need be, and perform basic ADLs. However, over the past few weeks she has been more lethargic, not eating or drinking, unable to ambulate, and unable to perform ADLs. her stated that this has been acutely worsened for the past few days as she became completely limp and collapsed to the floor this evening when he tried to help her to the bathroom resulting in him calling EMS for her to be brought in as he did not know what to do anymore. He is struggling to take care of her at home when she is in the state. Discussed that this may be acutely worsened due to sepsis and infection however a long-term plan may be a good idea. He stated that they have been talking with home instead regarding home health however the patient does not want people in her home. he stated he is dealt with PT and case management services in the past during previous admissions and specifically with her hemorrhage, and was rather unhappy with the results. His ultimate goal is for her to be back to baseline and able to ambulate and perform ADLs. She has advanced directives and living will stating that she would like to be DNR/DNI. Her is her power of trust and estates attorney as she is for him as well. They have 2 children that live in [place]. DPOA-HC/Surrogate Decision Maker Patient's power of trust and estates attorney is her , Kole. Status DNR/DNI Total Time I spent a total of 67 minutes was spent on this discussion, including counseling, answering questions, and completing, if any, pertinent advanced care planning forms/documents.
[2024-12-05] MEDS ORDERED: GLUCOSE 10 TAB/TUBE PO PRN (04:50)
[2024-12-05] MEDS ORDERED: GLUCOSE 40% GEL 15 GM TUBE PO PRN (04:50)
[2024-12-05] MEDS ORDERED: GLUCAGON FOR INJ 1 MG VIAL SQ PRN (04:50)
[2024-12-05] MEDS ORDERED: ONDANSETRON INJ 2 MG/ML 2 ML VIAL IV PRN (04:50)
[2024-12-05] MEDS ORDERED: ACETAMINOPHEN 1,000 MG/100 ML VIAL IV PRN (04:50)
[2024-12-05] MEDS ORDERED: CARBOHYDRATES FOR HYPOGLYCEMIA PO PRN (04:50)
[2024-12-05] MEDS ORDERED: DEXTROSE 50% 50 ML SYRINGE IV PRN (04:50)
[2024-12-05] MEDS ORDERED: ACETAMINOPHEN 500 MG TAB PO PRN (05:08)
[2024-12-05] MEDS: SODIUM CHLORIDE 0.9% 1,000 ML IV SCH (05:45)
[2024-12-05] MEDS: cefTRIAXone SODIUM 2,000 MG/50 ML BAG IV SCH (05:47)
[2024-12-05] MEDS: ARMOUR THYROID 30 MG TAB PO SCH ×2 (05:49)
[2024-12-05] MEDS: INSULIN ASPART PER UNIT CHARGE SC SCH (07:41)
[2024-12-05] MEDS: OXYBUTYNIN CHLORIDE XL 5 MG TABCR PO SCH (09:04)
--- NOTE | 2024-12-05 09:06 | Pharmacy Report ---
Pharmacy PK ABX Note - Date of Service December 05, 2024 - Assessment and Plan Assessment 79 year old F receiving ceftriaxone/vancomycin for treatment of sepsis/pyelonephritis. Pertinent microbiologic data includes: blood and urine cultures pending. History of E. Coli (06/2024), [id number] (03/2022) and E. Clocae (12/2018) Day # 1 of antimicrobial therapy. Plan Vancomycin * Loading dose: 1250 mg IV x 1 * Maintenance dose: 1000 mg IV every 24 hours starting 12/05 @1400 * Regimen is predicted to achieve target AUC/EMERITA of 400-600 mg/L.hr * Random to be ordered if continued. Pharmacy will continue to follow and will adjust dose/frequency as necessary. Thank you. Pharmacy has transitioned to AUC monitoring for vancomycin. AUC/EMERITA is the preferred PK/PD target and is associated with decreased risk of nephrotoxicity compared to traditional trough targets.
--- NOTE | 2024-12-05 09:17 | Electrocardiogram Report ---
Test Reason : Blood Pressure : */* mmHG Vent. Rate : 86 BPM Atrial Rate : 86 BPM P-R Int : 168 ms QRS Dur : 80 ms QT Int : 370 ms P-R-T Axes : -18 -10 -21 degrees QTcB Int : 442 ms Normal sinus rhythm Inferior infarct , age undetermined Nonspecific T wave abnormality Abnormal ECG When compared with ECG of 21-Aug-2023 11:29, Inferior infarct is now Present Nonspecific T wave abnormality now evident in Anterior leads Confirmed by Holland Sosa ([id number]) on 12/05/2024 9:16:55 AM Referred By: REFERRED SELF Confirmed By: Holland Sosa
[2024-12-05] MEDS: VANCOMYCIN HCL 1,000 MG/270 ML BAG IV SCH (14:07)
--- NOTE | 2024-12-05 16:47 | History & Physical Bridge Note ---
Date of Service December 05, 2024 History & Physical Bridge Note I have examined the patient, reviewed the History & Physical and in the interval since the performance of the History & Physical I have noted the following changes of clinical significance: Patient seen in the afternoon on 12/05 with her at the bedside. She is already significantly improved. She was able to walk to the bathroom and back with minimal assistance therefore her strength is returning. She was not lethargic and was answering questions. She denies abdominal pain or back pain, no urinary symptoms. Her reports she used to have frequent urinary incontinence and urgency but that has improved with being on oxybutynin. Denies chest pain or shortness of breath and has been weaned off oxygen. I reviewed her labs from admission and her urine and blood cultures are pending Vitals reviewed Gen: [AAOx2, NAD] HEENT: [anicteric sclerae] CV: [RRR no mgr nl S1S2] Pulm: [CTAB no wcr] Abd: [+BS soft NT ND no masses or hernias] Ext: [no edema] Skin: [no rashes, warm/dry] 79-year-old female here with Sepsis and acute pyelonephritis. With acute metabolic encephalopathy Improving continue same antibiotics, APAP prn fever, follow cultures
[2024-12-05] MEDS: ANASTROZOLE 1 MG TAB PO SCH (21:10)
[2024-12-05] MEDS: ATORVASTATIN 10 MG TAB PO SCH (21:10)
[2024-12-06 06:29] LABS: Basophils # (auto) 0.04 K/uL (0.00-0.20); Basophils % (auto) 0.3 %; Eosinophils # (auto) 0.14 K/uL (0.00-0.50); Eosinophils % (auto) 1.1 %; Hematocrit (blood only) 31.8 % (37.0-47.0); Hemoglobin 10.6 g/dl (12.0-16.0); Immature Granulocytes # (auto) 0.06 K/uL (0.01-0.20); Immature Granulocytes % (auto) 0.5 %; Lymphocytes # (auto) 1.92 K/uL (1.20-3.40); Lymphocytes % (auto) 14.9 %; Mean Corpuscular Hemoglobin 30.9 pg (25.0-34.0); Mean Corpuscular Hgb Conc 33.3 g/dL (32.0-36.0); Mean Corpuscular Volume 92.7 fL (80.0-100.0); Mean Platelet Volume 10.7 fL (9.4-12.4); Monocytes # (auto) 1.24 K/uL (0.11-0.59); Monocytes % (auto) 9.6 %; Neutrophils # (auto) 9.47 K/uL (1.40-6.50); Neutrophils % (auto) 73.6 %; Platelet Count 190 K/uL (130-400); RDW Coefficient of Variation 14.5 % (11.5-14.5); RDW Standard Deviation 48.8 fL (36.4-46.3); Red Blood Count 3.43 M/uL (4.20-5.40); White Blood Count 12.87 K/ul (4.8-10.8)
[2024-12-06 07:16] LABS: BUN Creatinine Ratio 9.6 (10-20); Calcium 7.7 mg/dl (8.6-10.3); Magnesium 1.8 mg/dl (1.7-2.4); Potassium 3.2 mmol/L (3.5-5.1)
[2024-12-06] MEDS: VANCOMYCIN HCL 1,000 MG/270 ML BAG IV SCH (09:26)
[2024-12-06] MEDS: POTASSIUM CHLORIDE CRTAB 20 MEQ TABCR PO STA (09:31)
[2024-12-06] MEDS ORDERED: traMADol HCL 50 MG TABLET PO PRN (11:56)
[2024-12-06] MEDS: POLYETHYLENE (MIRALAX) 17 GM PACK PO SCH (12:19)
--- NOTE | 2024-12-06 17:02 | Hospitalist Progress Note ---
Date of Service December 06, 2024 Assessment & Plan (1) Sepsis with metabolic encephalopathy: (2) Pyelonephritis of left kidney: (3) Hypoxia: Plan This patient is an 79-year-old female with a H/L cerebral aneurysm and subarachnoid hemorrhage resulting in MCI and chronic fatigue, type II DM, breast cancer s/p lumpectomy and radiation in 2019, hypothyroidism, HLD, stage III CKD, and urinary incontinence who presented with several days of lethargy and diarrhea. She was found to have left-sided acute pyelonephritis and sepsis. #Sepsis/acute metabolic encephalopathy/left pyelonephritis -patient with generalized weakness, confusion, poor appetite, loose stools, UA abnormal and CT abdomen/pelvis with subtle left sided pyelonephritis. On arrival, WBC 20.94, tachycardic (HR 92), hypoxic requiring 2L NC O2, and febrile 38.6C. Her lactate was 1.7, but procal mildly elevated at0.82 Urine culture now growing E. coli, sensitivities pending. Blood cultures no growth to date. Vital signs are back to normal and mentation is back to baseline. Generalized weakness is much improved. She is on oxybutynin which can contribute to UTIs. She was treated with IV fluids and started on broad-spectrum antibiotics with ceftriaxone and vancomycin based on previous urine cultures -Continue ceftriaxone and vancomycin and if blood cultures remain no growth at 48-hour bradley, can discontinue vancomycin and convert to oral p.o. antibiotics to cover the E. coli - follow urine culture-E. coli with sensitivities pending - Tylenol as needed for fever - Okay to resume home tramadol as needed pain now that cognition has improved - Recommend discontinuing oxybutynin-can use depends for urinary incontinence #Hypoxia - Became hypoxic at 88% on room air, currently on 2L NC at time of admission. CXR and chest CTA negative. Biofire negative. Suspect 2/2 sepsis which is now resolved #Diarrhea - x 2 days, loose. Denies recent ABX use. Now resolved and has been requesting her home daily MiraLAX and fiber supplement #Hyponatremia/hypokalemia- Na 132, suspect 2/2 hypovolemia with poor PO intake and diarrhea. Sodium is now normalized after IV fluid resuscitation but potassium low at 3.2 - Give potassium chloride 40 mEq p.o. x 1 - trend BMP, magnesium in the morning #T2DM - Most recent A1C 6.7%. - hold metformin after IV contrast - loose SSI #Hx of cerebral aneurysm and subarachnoid hemorrhage - September 2014 follows with neurosurgery. Patient lethargic at baseline, sleeping 20 to 22 hours/day at baseline requires 24-hour supervision, however patient reports she can perform ADL at baseline such as getting out of bed on her own and ambulating to the bathroom and short distances around the house. Head CT negative for acute changes. #urinary incontinence - - Discontinue oxybutynin due to side effect of causing urinary tract infections #Right breast lobular carcinoma in situ - s/p lumpectomy and radiation in 2019 - continue anastrozole #HLD - continue statin #hypothyroidism TSH WNL Continue [place] thyroid DVT prophylaxis-SCDs, defer anticoagulation with history of subarachnoid hemorrhage Dispo: Continued stay on PCU, but awaiting PT/OT evaluations but most likely will be able to return home with 07/02 care with -plan for discharge likely on 12/07 Admission and Anticipated Discharge Date Admission Date: December 05, 2024 Anticipated date of discharge: 12/07/24 Subjective Patient feeling well today, denies abdominal pain or back pain. She is out of bed to chair and walking to the bathroom. She is eating and has a good appetite Telemetry with normal sinus rhythm with rates in the 80s Physical Exam Constitutional: WD/WN, vitals as above Respiratory: normal respiratory effort, lungs clear to auscultation Cardiovascular: RRR, no murmur, no edema Gastrointestinal (Abdomen): normal bowel sounds, soft, nontender, no hepatosplenomegaly Results & Data Results & Data Vital Signs (Past 12 Hours) Vital Signs Temp Pulse Pulse Resp BP Pulse Ox O2 Del Method 12/06/24 15:08 37.0 C 79 19 113/69 92 Room Air 12/06/24 14:22 76 12/06/24 11:03 36.9 C 79 18 135/71 92 Room Air 12/06/24 07:18 37.3 C 77 17 156/72 H 90 Room Air Laboratory Results CBC, BMP, magnesium, TSH, urine culture, blood cultures reviewed PG Care Time/CCT Total # of Minutes Spent Total Time Spent with Patient: Total time spent is greater than 50% in coordination of care (as documented) at patient's floor/unit and/or counseling patient: Coding Level of Care Code 20635 SUB INP/OBS CARE MIN Diagnoses Sepsis with metabolic encephalopathy A41.9; R65.20; G93.41 Pyelonephritis of left kidney N12 Hypoxia R09.02
[2024-12-06] MEDS: CALCIUM 600MG + VIT D 400 IU TAB PO SCH (20:20)
[2024-12-06] MEDS: CALCIUM POLYCARBOPHIL 625MG TAB PO SCH (20:20)
[2024-12-07] MEDS ORDERED: cefTRIAXone SODIUM 350 MG/ML IM IM ONE ×2 (02:55→03:08)
[2024-12-07] MEDS: cefTRIAXone SODIUM 350 MG/ML IM IM SCH (03:09)
[2024-12-07] MEDS: cefTRIAXone SODIUM 350 MG/ML IM IM ONE (04:12)
[2024-12-07 07:08] LABS: Basophils # (auto) 0.04 K/uL (0.00-0.20); Basophils % (auto) 0.4 %; Eosinophils # (auto) 0.27 K/uL (0.00-0.50); Hematocrit (blood only) 33.5 % (37.0-47.0); Hemoglobin 11.4 g/dl (12.0-16.0); Immature Granulocytes # (auto) 0.04 K/uL (0.01-0.20); Immature Granulocytes % (auto) 0.4 %; Lymphocytes # (auto) 2.19 K/uL (1.20-3.40); Lymphocytes % (auto) 23.9 %; Mean Corpuscular Hemoglobin 31.1 pg (25.0-34.0); Mean Corpuscular Volume 91.3 fL (80.0-100.0); Mean Platelet Volume 10.6 fL (9.4-12.4); Monocytes # (auto) 0.77 K/uL (0.11-0.59); Monocytes % (auto) 8.4 %; Neutrophils # (auto) 5.84 K/uL (1.40-6.50); Neutrophils % (auto) 63.9 %; Platelet Count 220 K/uL (130-400); RDW Coefficient of Variation 14.2 % (11.5-14.5); RDW Standard Deviation 47.8 fL (36.4-46.3); Red Blood Count 3.67 M/uL (4.20-5.40); White Blood Count 9.15 K/ul (4.8-10.8)
[2024-12-07 07:32] LABS: BUN Creatinine Ratio 11.6 (10-20); Calcium 8.7 mg/dl (8.6-10.3); Creatinine Clr Calc Pharmacy 52.9 ml/min; Potassium 3.4 mmol/L (3.5-5.1)
[2024-12-07] MEDS: POTASSIUM CHLORIDE CRTAB 20 MEQ TABCR PO STA (08:23)
--- NOTE | 2024-12-07 11:11 | Discharge Summary ---
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 She was found to have left-sided acute pyelonephritis and sepsis. #Sepsis/acute metabolic encephalopathy/left pyelonephritis -patient with generalized weakness, confusion, poor appetite, loose stools, UA abnormal and CT abdomen/pelvis with subtle left sided pyelonephritis. On arrival, WBC 20.94, tachycardic (HR 92), hypoxic requiring 2L NC O2, and febrile 38.6C. Her lactate was 1.7, but procal mildly elevated at0.82 Urine culture now growing E. coli, pansensitive. Blood cultures remain no growth to date for over 48 hours at the time of discharge. Vital signs are back to normal and mentation is back to baseline. Generalized weakness is much improved and she is able to ambulate to and from the bathroom and get out of bed which is what she needs to be able to do at home-has 24/7 care with her . She is on oxybutynin which can contribute to UTIs. She was treated with IV fluids and started on broad- spectrum antibiotics with ceftriaxone and vancomycin based on previous urine cultures - convert to oral p.o. cefdinir 300 Mg twice daily x 7 more days for total of 10 days of antibiotics to cover the E. coli - Tylenol as needed for fever-no further fevers - Recommend discontinuing oxybutynin-can use depends for urinary [id number] with urology in the future if continues to have overactive bladder #Hypoxia - Became hypoxic at 88% on room air, was placed on 2L NC O2 and now on room air and hypoxemia resolved. CXR and chest CTA negative. Biofire negative. Suspect 2/2 sepsis which is now resolved #Diarrhea - x 2 days, loose. Denies recent ABX use. Now resolved and has been requesting her home daily MiraLAX and fiber supplement and moving bowels regularly #Hyponatremia/hypokalemia- Na 132, suspect 2/2 hypovolemia with poor PO intake and diarrhea. Sodium is now normalized after IV fluid resuscitation and potassium remains mildly low which was replaced with oral potassium #T2DM - Most recent A1C 6.7%. - hold metformin after IV contrast but can be resumed on discharge #Hx of cerebral aneurysm and subarachnoid hemorrhage - September 2014 follows with neurosurgery. Patient lethargic at baseline, sleeping 20 to 22 hours/day at baseline requires 24-hour supervision, however patient reports she can perform ADL at baseline such as getting out of bed on her own and ambulating to the bathroom and short distances around the house. Head CT negative for acute changes. #urinary incontinence - - Discontinue oxybutynin due to side effect of causing urinary tract infections #Right breast lobular carcinoma in situ - s/p lumpectomy and radiation in 2019 - continue anastrozole #HLD - continue statin #hypothyroidism TSH WNL Continue [place] thyroid DVT prophylaxis-SCDs, defer anticoagulation with history of subarachnoid hemorrhage Dispo: Stable for discharge to home, plans on doing outpatient PT/OT Notes For Next Care Provider Medication Changes From Visit Discontinue oxybutynin Added cefdinir 300 mg p.o. twice daily x 7 more days Admission HPI Per Admitting Provider Patient is an 79-year-old female with past medical history of cerebral aneurysm and subarachnoid hemorrhage resulting in confusion and fatigue for several years, type II DM, breast cancer s/p lumpectomy and radiation in 2019, hypothyroidism, hyperlipidemia, stage III CKD, urinary incontinence. Patient presented due to several days of lethargy and diarrhea. She was found to have left-sided pyelonephritis, UA appears positive, and meet SIRS criteria with white count of 20.94, temperature 38.6 C, and heart rate 92. Patient seen at bedside with her present, she was sleepy on exam however able to follow commands and answer questions. Extensively discussed at bedside with the patient's regarding his care for her at home. See ACP note. Over the past few weeks she has been more lethargic, not eating or drinking, unable to ambulate, and unable to perform ADLs. Her stated that this has been acutely worsened for the past few days as she became completely limp and collapsed to the floor this evening when he tried to help her to the bathroom resulting in him calling EMS for her to be brought in as he did not know what to do anymore. Patient has a history of frequent UTIs growing E. coli, distant history of ongoing Pseudomonas. UA appears infectious in AP CT showed left pyelonephritis. Patient's also stated she has had diarrhea for 2 days, that is loose and without hematochezia. He denies any watery stools or recent antibiotic use. He has had a difficult time cleaning her up at home with the diarrhea because she is so fatigued and weak. She has still been getting her home medication in applesauce at home, she has only taken a few bites of food a few past few days. She has DNR/DNI status. Discharge Exam Constitutional WD/WN, vitals as above Respiratory normal respiratory effort, lungs clear to auscultation Cardiovascular RRR, no murmur, no edema Gastrointestinal (Abdomen) normal bowel sounds, soft, nontender, no hepatosplenomegaly Discharge Plan Discharge Items Patient Disposition: Home - Self-Care Reason For Visit: SEPSIS,AMS,PYELONEPHRITIS,HYPOXIA,AMBULATORY Discharge Diagnosis: Sepsis, UTI, pyelonephritis Condition on Discharge: Good Activity: Resume your previous activity Activity Comment: With outpatient PT/OT Non-emergency contact: Primary Care Provider Call non-emergency contact if: you have any medication questions and your symptoms worsen Follow-up/Referrals: Pro,Holland Michael MD [Primary Care Provider] - (Follow-up within 1 to 2 weeks.) Diet: Carb Consistent or DM2 Addtl Attending Provider Instructions: Please finish out the course of antibiotics for your urinary tract infection for another 7 days. It is recommended that you no longer take the oxybutynin for your bladder urgency as this can contribute to causing urinary tract infections. If you continue to have issues with urinary incontinence, it is recommended that you follow-up with a urologist in the future for alternative options for treatment. A prescription was faxed for you to [facility] for outpatient Physical and Occupational Therapy. Pending Studies at Discharge: Yes (Final blood cultures-no growth to date) Stand-Alone Forms: [facility] eziCONEX Medications and DC Order Prescriptions: New cefdinir 300 mg Capsule 300 mg PO BID Qty: 14 0RF Continued anastrozole 1 mg tablet 1 mg PO QPM Centrum Silver 0.4-300-250 mg-mcg-mcg Tablet 1 tab PO QAM Qty: 0 (DME) Contour Next Test Strips Strip See Rx Instructions .ROUTE .MEDSUPPLY Qty: 100 3RF Rx Instructions: Test blood sugar 3 times a week (DME) lancets [Microlet Lancet] Misc See Rx Instructions .Route Qty: 100 3RF Rx Instructions: Test blood sugar 3 times a week metformin 500 mg tablet extended release 24 hr 500 mg PO BID Qty: 180 5RF calcium carbonate [Tums Ultra] 400 mg calcium (1,000 mg) tablet,chewable 400 mg PO DAILY PRN (Reason: HEARTBURN/INDIGESTION) prevagen 1 tab PO DAILY polyethylene glycol 3350 [Miralax] 17 gram/dose powder 17 g PO DAILY PreserVision AREDS 2,148 mcg-113 mg-45 mg-17.4mg tablet 1 tab PO DAILY Qty: 0 mupirocin 2 % ointment 1 applic topical DIRECTED PRN (Reason: SKIN IRRITATIONS) tramadol 50 mg tablet 50 mg PO DAILY PRN (Reason: pain) Qty: 30 5RF thyroid (pork) [[place] Thyroid] 60 mg tablet 60 mg PO QAM Qty: 90 3RF Rx Instructions: Take additional 15 mg on M, W, and F atorvastatin 10 mg tablet 10 mg PO QPM Qty: 90 3RF Caltrate 600 plus D 600 mg-20 mcg (800 unit) Tablet,Chewable 1 tab PO QPM acetaminophen [Tylenol Extra Strength] 500 mg Tablet 1,000 mg PO BID PRN (Reason: Pain) Fiber Gummies 2 gram Tablet,Chewable 2 g PO QPM Slow Fe 137 mg (45 mg iron) Tablet Extended Release 137 mg PO DAILY thyroid (pork) [[place] Thyroid] 15 mg tablet 15 mg PO 3XWK Rx Instructions: TOTAL DOSE 75 MG---Take along with 60 mg tab on M, W, and F. Baqsimi 3 mg/actuation spray,non-aerosol 3 mg intranasal DIRECTED PRN (Reason: Hypoglycemia) Dietary Supplement 1 cap PO AMPM Rx Instructions: PER LIST--4 INGREDIENT CAPSULE FOR ENERGY Discontinued oxybutynin chloride 5 mg tablet extended release 24hr 5 mg PO DAILY Qty: 30 2RF Discharge Orders: Discharge Order (Routine); Ordered 12/07/24 Ordered By: Marisela Chavarria Admission Data Admit Date/Time: 12/05/24 02:25 Attending Provider: Marisela Chavarria Admit Provider: Timothy Holly Primary Care Provider: Holland Landin Other Providers: Timothy Holly; Jovan Redd at [facility] Stay Data Consultations 12/05/24 00:39 ED Decision to Admit Stat Diagnostic Imagining Performed 12/04/24 21:48 CT Abd and Pelvis [CT abd pelvis IV con only] Stat CT angio chest PE protocol Stat CT cervical spine wo con Stat CT head/brain wo con Stat Pending Results Patient Have Any Pending Studies at Discharge: Yes (Final blood cultures-no growth to date) Discharge Instructions Given to Patient (Per Discharging Provider) Please finish out the course of antibiotics for your urinary tract infection for another 7 days. It is recommended that you no longer take the oxybutynin for your bladder urgency as this can contribute to causing urinary tract infections. If you continue to have issues with urinary incontinence, it is recommended that you follow-up with a urologist in the future for alternative options for treatment. A prescription was faxed for you to [facility] for outpatient Physical and Occupational Therapy. Total Time Total Time Spent Total Time Spent (In Minutes): 35 minutes Total Time Includes: Examination of the Patient, Discharge Planning and Medication Reconciliation Coding Level of Care Code 02264 INP/OBS DISCH >30 MIN Diagnoses Sepsis with metabolic encephalopathy A41.9; R65.20; G93.41 Pyelonephritis of left kidney N12 Hypoxia R09.02
[2024-12-07 11:28] VITALS: BP 166/81; PULSE 76; RESP 19; TEMP 98.6; O2SAT 94
[2024-12-07] MEDS ORDERED: CEFDINIR 300 MG CAP PO SCH (21:00)
== END 2024-12-07 12:59 | disposition home or self-care (01) | DRG 871 ==
LOC: SUATTDRO → ED 21:39 → 2S 12-05 02:25 → SUATTDRO 12-05 02:25 → 2S 12-05 04:22